=== PATIENT | female | born 1935 | race Hispanic/Latino ===

== ENCOUNTER 2018-05-19 19:18 | Emergency (ER) | payer OTHER ==
[~2018-05-19 19:18] MED LIST: ACET1TAB25 PO; AMLO5TAB2 PO; ATOR10 PO; CINA30 PO; HUMLIS7525 SQ; INSU10VI4 SQ; NITR0.4T SL; PHOSLOC PO; SEVE800T7 PO; VITA1TAB22 PO
[2018-05-19 19:56] LABS: BASOPHILS % (AUTO) 1.1 % (0.0-5.0); EOSINOPHILS % (AUTO) 1.4 % (0.0-8.0); HEMATOCRIT 37.3 % (36-48); LYMPHOCYTES % (AUTO) 14.6 % (21.0-51.0); MEAN CORPUSCULAR HEMOGLOBIN 32.5 pg (27.0-33.0); MEAN CORPUSCULAR HGB CONC 34.8 g/dL (32.0-36.0); MEAN CORPUSCULAR VOLUME 93.5 fL (79-99); MONOCYTES % (AUTO) 5.9 % (3.0-13.0); PLATELET COUNT (AUTO) 282 K/uL (130-400); RED BLOOD CELL COUNT(AUTO) 3.99 MIL/uL (4.00-5.50); RED CELL DISTRIBUTION WIDTH 15.4 % (11.0-15.5); WHITE BLOOD COUNT (AUTO) 9.8 K/uL (4.8-10.8)
[2018-05-19] MEDS ORDERED: ACETAMINOPHEN ELIXIR 650 MG/20.3 ML UDCUP ONE (20:13)
[2018-05-19 20:56] LABS: ALBUMIN 3.5 g/dL (3.5-5.0); BILIRUBIN,TOTAL 0.4 mg/dL (0.2-1.0); POTASSIUM 4.3 mmol/L (3.5-5.1); TOTAL PROTEIN, SERUM 7.1 g/dL (6.0-8.3)
[2018-05-19 21:21] LABS: CREATININE 8.2 mg/dL (0.5-1.5)
[2018-05-19 22:25] LABS: APPEARANCE,URINE Cloudy (CLEAR); BILIRUBIN,URINE Negative (NEGATIVE); COLOR,URINE Yellow (YELLOW); GLUCOSE, URINE (UA) 500 mg/dL (NEGATIVE); KETONES,URINE Negative (NEGATIVE); LEUKOCYTE ESTERASE ,URINE Large (NEGATIVE); NITRATE,URINE Negative (NEGATIVE); OCCULT BLOOD,URINE Small (NEGATIVE); PH,URINE >=9.0 (5.0-8.0); PROTEIN,URINE 300 (NEGATIVE); UROBILINOGEN,URINE 0.2 mg/dL (0.2-1.0)
[2018-05-19 22:54] LABS: BACTERIA,URINE Moderate /HPF (None Seen); WBC,URINE 26-50 /HPF (0-1)
[2018-05-19 22:55] LABS: MUCUS,URINE Moderate LPF (None Seen); SQUAMOUS EPITHELIAL CELL,UR Moderate /HPF (0-2)
[2018-05-31] MEDS ORDERED: SENN-77 PO (09:04)
[2018-05-31] MEDS ORDERED: OMEP40CA37 PO (09:04)
== END 2018-05-19 23:05 | disposition home or self-care (01) ==
LOC: EDH 19:18
DX: S32.602A Unspecified fracture of left ischium, initial encounter for closed fracture (principal); S40.012A Contusion of left shoulder, initial encounter; S50.02XA Contusion of left elbow, initial encounter; S09.90XA Unspecified injury of head, initial encounter; I12.0 Hypertensive chronic kidney disease with stage 5 chronic kidney disease or end stage renal disease; E11.22 Type 2 diabetes mellitus with diabetic chronic kidney disease; N18.6 End stage renal disease; E78.5 Hyperlipidemia, unspecified; E07.9 Disorder of thyroid, unspecified; Z98.51 Tubal ligation status; Z98.890 Other specified postprocedural states; Z99.2 Dependence on renal dialysis; Z88.8 Allergy status to other drugs, medicaments and biological substances; W01.190A Fall on same level from slipping, tripping and stumbling with subsequent striking against furniture, initial encounter; Y93.89 Activity, other specified; Y92.89 Other specified places as the place of occurrence of the external cause; Y99.8 Other external cause status
CPT/HCPCS: 36415; 70450; 72125; 73030; 73080; 73502; 80053; 81001; 85025

== ENCOUNTER → 2018-09-11 | Outpatient (CLI) | payer OTHER ==
[~2018-09-11] MED LIST changes: -ACET1TAB25 PO; +ALEN70TA47 PO; -AMLO5TAB2 PO; +AMLO5TAB4 PO; -HUMLIS7525 SQ; -INSU10VI4 SQ; +OMEP40CA37 PO; -PHOSLOC PO; -SEVE800T7 PO
== END | disposition home or self-care (01) ==
LOC: SHCH 14:56
PROVIDERS: ATTEND Internal Medicine Cardiovascular Disease
DX: I51.7 Cardiomegaly (principal); R01.1 Cardiac murmur, unspecified
CPT/HCPCS: 93306

== ENCOUNTER 2019-12-11 18:15 | Emergency (ER) | payer OTHER ==
[~2019-12-11 18:15] MED LIST changes: +ALEN70TA10 PO; -ALEN70TA47 PO; +OMEP40CA13 PO; -OMEP40CA37 PO
[2019-12-11] MEDS ORDERED: ACETAMINOPHEN 325 MG TAB ONE (18:48)
== END 2019-12-11 21:25 | disposition home or self-care (01) ==
LOC: EDH 18:15
DX: S52.502A Unspecified fracture of the lower end of left radius, initial encounter for closed fracture (principal); E11.9 Type 2 diabetes mellitus without complications; K21.9 Gastro-esophageal reflux disease without esophagitis; E78.5 Hyperlipidemia, unspecified; I10 Essential (primary) hypertension; Z88.1 Allergy status to other antibiotic agents; Z88.6 Allergy status to analgesic agent; W18.39XA Other fall on same level, initial encounter; Y93.89 Activity, other specified; Y92.89 Other specified places as the place of occurrence of the external cause; Y99.8 Other external cause status
CPT/HCPCS: 29125; 70450; 72072; 72100; 73110

== ENCOUNTER 2020-06-16 07:45 | Inpatient (IN) | payer OTHER ==
[~2020-06-16] VITALS: Ht 154.9 cm; Wt 77.2 kg
[2020-06-16 08:37] LABS: BASOPHILS % (AUTO) 0.4 % (0.0-5.0); EOSINOPHILS % (AUTO) 0.1 % (0.0-8.0); HEMATOCRIT 29.6 % (36-48); LYMPHOCYTES % (AUTO) 6.3 % (21.0-51.0); MEAN CORPUSCULAR HEMOGLOBIN 32.7 pg (27.0-33.0); MEAN CORPUSCULAR HGB CONC 33.1 g/dL (32.0-36.0); MEAN CORPUSCULAR VOLUME 98.7 fL (79-99); MONOCYTES % (AUTO) 6.8 % (3.0-13.0); NEUTROPHILS % (AUTO) 86.1 % (40.0-77.0); PLATELET COUNT (AUTO) 224 K/uL (130-400); RED CELL DISTRIBUTION WIDTH 13.6 % (11.0-15.5); WHITE BLOOD COUNT (AUTO) 12.4 K/uL (4.8-10.8)
[2020-06-16] MEDS ORDERED: METHYLPREDNISOLONE SOD SUCC 40MG/ML 1ML ONE (08:48)
[2020-06-16] MEDS ORDERED: CEFTRIAXONE SODIUM 2 GM VIAL ONE (08:48)
[2020-06-16] MEDS ORDERED: ONDANSETRON HCL 4 MG/2 ML VIAL ONE (08:48)
[2020-06-16 09:01] LABS: ALANINE AMINOTRANSFERASE 18 U/L (12-78); ALBUMIN 4.3 g/dL (3.5-5.0); ASPARTATE AMINOTRANSFERASE 28 U/L (10-37); BILIRUBIN,TOTAL 0.7 mg/dL (0.2-1.0); CARBON DIOXIDE 26 mmol/L (21-32); CHLORIDE 91 mmol/L (101-111); CREATINE KINASE, TOTAL 131 U/L (21-232); CREATININE 6.4 mg/dL (0.5-1.5); GLOMERULAR FILTR. RATE CALC 7 mL/min (>60); GLUCOSE,RANDOM 138 mg/dL (70-105); MYOGLOBIN 345 ng/mL (10-92); SODIUM SERUM 127 mmol/L (136-145); TOTAL PROTEIN, SERUM 7.7 g/dL (6.0-8.3); TROPONIN I < 0.04 ng/mL (0.00-0.06); UREA NITROGEN, BLOOD 44 mg/dL (7-18)
[2020-06-16 09:36] LABS: INR 0.95 (0.85-1.15); PARTIAL THROMBOPLASTIN TIME 30.8 SEC (26.3-35.5); PROTHROMBIN TIME 10.3 SEC (9.6-11.6)
[2020-06-16] MEDS ORDERED: CALCIUM GLUCONATE 1 GM/10 ML VIAL IV ONE (10:40)
[2020-06-16] MEDS ORDERED: SODIUM BICARB 50MEQ 50ML VIAL ONE (10:41)
[2020-06-16] MEDS ORDERED: SODIUM CHLORIDE 0.9% 100 ML IV ONE (10:42)
[2020-06-16] MEDS ORDERED: LOPERAMIDE 1 MG/7.5 ML UDCUP PO PRN (12:45)
[2020-06-16] MEDS ORDERED: LACTULOSE 20 GM/30 ML UDCUP PO PRN (12:45)
[2020-06-16] MEDS ORDERED: HYDRALAZINE HCL 20 MG/ML VIAL IV PRN (12:45)
[2020-06-16] MEDS ORDERED: ONDANSETRON HCL 4 MG/2 ML VIAL IVP PRN (12:45)
[2020-06-16] MEDS ORDERED: AZITHROMYCIN 500MG+NS 250ML 250 ML IV SCH (12:45)
[2020-06-16 14:18] LABS: ABG BASE EXCESS -2.1 mmol/L (-2.0-3.0); ABG HCO3 22.9 mmol/L (21.0-28.0); ABG OXYGEN SATURATION 98.8 % (95.0-99.0); ABG PCO2 40 mmHg (32-45)
[2020-06-16 18:45] VITALS: BP 114/86
--- NOTE | 2020-06-16 19:40 | NUR ---
I spoke to Rehan MATTHEW for the patient, informed her patient did not have any diet at this time. Orders received entered and noted.
[2020-06-16] MEDS ORDERED: ENOXAPARIN SODIUM 0.5 MG/KG EACH SQ SCH (21:00)
[2020-06-16] MEDS ORDERED: ENOXAPARIN SODIUM 40 MG/0.4 ML SYRINGE SQ SCH (21:00)
[2020-06-16] MEDS: HEPARIN SODIUM 5000UNIT/ML 1ML VIAL SQ SCH (21:12)
[2020-06-17 00:01] VITALS: BP 144/70
[2020-06-17] MEDS: HEPARIN SODIUM 5000UNIT/ML 1ML VIAL SQ SCH ×3 (02:30→20:54)
[2020-06-17] MEDS ORDERED: PHARMACY COMMUNICATION MISC SCH (03:00)
[2020-06-17 04:28] VITALS: BP 157/67
[2020-06-17] MEDS ORDERED: ISOS30TA6 PO (06:48)
[2020-06-17] MEDS ORDERED: ASPI-1005 PO (06:49)
[2020-06-17 06:55] LABS: BASOPHILS % (AUTO) 0.5 % (0.0-5.0); EOSINOPHILS % (AUTO) 0.1 % (0.0-8.0); HEMATOCRIT 27.8 % (36-48); LYMPHOCYTES % (AUTO) 10.1 % (21.0-51.0); MEAN CORPUSCULAR HEMOGLOBIN 32.2 pg (27.0-33.0); MEAN CORPUSCULAR HGB CONC 32.7 g/dL (32.0-36.0); MEAN CORPUSCULAR VOLUME 98.2 fL (79-99); MONOCYTES % (AUTO) 7.3 % (3.0-13.0); NEUTROPHILS % (AUTO) 81.5 % (40.0-77.0); PLATELET COUNT (AUTO) 251 K/uL (130-400); RED BLOOD CELL COUNT(AUTO) 2.83 MIL/uL (4.00-5.50); RED CELL DISTRIBUTION WIDTH 13.3 % (11.0-15.5); WHITE BLOOD COUNT (AUTO) 8.6 K/uL (4.8-10.8)
[2020-06-17] MEDS ORDERED: ACET1TAB12 PO (06:55)
[2020-06-17] MEDS ORDERED: INSLAN SQ (06:58)
[2020-06-17] MEDS ORDERED: NITROGLYCERIN 0.4 MG SL TAB SL PRN (07:30)
[2020-06-17 07:37] LABS: ALBUMIN 3.6 g/dL (3.5-5.0); BILIRUBIN,DIRECT 0.1 mg/dL (0.0-0.3); BILIRUBIN,TOTAL 0.4 mg/dL (0.2-1.0); CRP QUANTITATIVE 159.1 mg/L (0.00-9.0); MAGNESIUM 3.4 mg/dL (1.80-2.40); PHOSPHORUS 5.5 mg/dL (2.5-4.9); TOTAL PROTEIN, SERUM 7.4 g/dL (6.0-8.3)
[2020-06-17 07:42] LABS: CREATININE 8.2 mg/dL (0.5-1.5); POTASSIUM 6.1 mmol/L (3.5-5.1)
[2020-06-17 07:43] LABS: HEMOGLOBIN A1C 5.3 % (4.0-6.0)
[2020-06-17] MEDS: INSULIN GLARGINE 100 UNITS/ML 10 ML VIAL SQ SCH (08:00)
[2020-06-17 08:41] VITALS: BP 145/54
--- NOTE | 2020-06-17 08:55 | NUR ---
DR. KATERINE DAVISON MD PAGED REGARDING CONSULT. PATIENT ERSD ON HS TTS. PATIENT REPORTS THAT DR. GARCIAS IS HER LINUX SERVER ADMINISTRATOR.
[2020-06-17] MEDS ORDERED: FAMOTIDINE 20MG TAB 20 MG TAB PO SCH (09:00)
[2020-06-17] MEDS: AMLODIPINE BESYLATE 5 MG TAB PO SCH (09:00)
[2020-06-17] MEDS: VITAMIN B COMPLEX 1 CAPSULE PO SCH (09:00)
[2020-06-17] MEDS: ASPIRIN 81MG TAB.CHEW PO SCH (09:00)
[2020-06-17] MEDS: DEXAMETHASONE SOD PHOSPHATE 4 MG/ML 1ML VIAL IVP SCH (09:00)
[2020-06-17] MEDS: FAMOTIDINE 20MG TAB 20 MG TAB PO SCH (09:00)
[2020-06-17] MEDS: ATORVASTATIN CALCIUM 20 MG TABLET PO SCH (09:00)
[2020-06-17 09:33] LABS: APPEARANCE,URINE Cloudy (CLEAR); BILIRUBIN,URINE Negative (NEGATIVE); COLOR,URINE Yellow (YELLOW); GLUCOSE, URINE (UA) TRACE mg/dL (NEGATIVE); KETONES,URINE Negative (NEGATIVE); LEUKOCYTE ESTERASE ,URINE Negative (NEGATIVE); NITRATE,URINE Negative (NEGATIVE); OCCULT BLOOD,URINE Trace (NEGATIVE); PH,URINE 6.5 (5.0-8.0); PROTEIN,URINE >=1000 mg/dL (NEGATIVE); UROBILINOGEN,URINE 0.2 mg/dL (0.2-1.0)
[2020-06-17 09:59] LABS: BACTERIA,URINE Rare /HPF (None Seen); RBC,URINE 0-1 /HPF (0-1); SQUAMOUS EPITHELIAL CELL,UR Moderate /HPF (0-2); WBC,URINE 0-1 /HPF (0-1)
--- NOTE | 2020-06-17 10:03 | NUR ---
RD NOTIFICATION Pt admitted, PUI COVID-19. Pt with Renal Dialysis, 75gm CC diet order in place. RD called Pt room. Pt reports having good appetite, however pending breakfast tray. Pt services en route of tray delivery. No GI distress. Obesity Class I. Octogenarian. Serum K 6.1, BUN 70, Cr 8.2, GFR 5, BG 147, P 5.5, Mg 3.40. RLE +2 non-pitting edema as per EMR. Recommend continue Renal Dialysis, 75gm CC diet order. RD to continue to monitor. Please notify as additional nutrition concerns arise. Thank you.
--- NOTE | 2020-06-17 10:42 | NUR ---
CHART CHECK COMPLETED. Pt IS AN 84 Y.O. FEMALE ADMITTED SECONDARY TO PUI COVID 19. Pt HAS A PAST MEDICAL HISTORY SIGNIFICANT FOR ESRD-HD, DMII, HYPERKALEMIA, HYPERTENSION, HYPERLIPIDEMIA, PROTEIN CALORIE-MALNUTRITION, OBESITY, KNEE SX, ANKLE SX, HIP SX, SINGLE KIDNEY, RAVA. Pt CURRENTLY ON REGULAR TEXTURE,THIN LIQUID DIET ([facility],HC[facility]). PLEASE REQUEST FORMAL SKILLED SPEECH/SWALLOW EVALUATION IF Pt PRESENTS WITH +S/S OF ASPIRATION SUCH COUGH RESPONSE, THROAT CLEAR, OR WET VOCAL QUALITY DURING P.O. Addendum: 06/17/20 at 1045 by RICKIE BALLARD, [facility] Amended: Links added.
[2020-06-17 11:23] VITALS: BP 146/55
[2020-06-17] MEDS ORDERED: EPOETIN ALFA 10,000 UNIT/ML VIAL SQ SCH (14:15)
[2020-06-17 17:03] VITALS: BP 154/43
[2020-06-17] MEDS ORDERED: DEXTROSE 50%-WATER 50 ML DISP.SYRIN IV PRN (17:30)
[2020-06-17] MEDS ORDERED: GLUCAGON 1MG KIT 1 MG ML IM PRN (17:30)
[2020-06-17 20:00] VITALS: BP 141/55
[2020-06-17] MEDS: AZITHROMYCIN 500MG+NS 250ML 250 ML IV SCH (20:33)
[2020-06-17] MEDS: INSULIN HUMULIN R 100 UNIT/ML 3ML SQ SCH (20:59)
[2020-06-18] VITALS (7 sets, daily range): BP systolic 135–165; BP diastolic 49–73
[2020-06-18 06:21] LABS: BASOPHILS % (AUTO) 0.3 % (0.0-5.0); EOSINOPHILS % (AUTO) 0.1 % (0.0-8.0); HEMATOCRIT 28.3 % (36-48); MEAN CORPUSCULAR HEMOGLOBIN 32.1 pg (27.0-33.0); MEAN CORPUSCULAR HGB CONC 32.9 g/dL (32.0-36.0); MEAN CORPUSCULAR VOLUME 97.6 fL (79-99); MONOCYTES % (AUTO) 8.6 % (3.0-13.0); NEUTROPHILS % (AUTO) 80.5 % (40.0-77.0); PLATELET COUNT (AUTO) 276 K/uL (130-400); RED CELL DISTRIBUTION WIDTH 13.2 % (11.0-15.5); WHITE BLOOD COUNT (AUTO) 7.9 K/uL (4.8-10.8)
[2020-06-18] MEDS: INSULIN HUMULIN R 100 UNIT/ML 3ML SQ SCH ×4 (06:35→21:00)
[2020-06-18 06:58] LABS: CREATININE 5.7 mg/dL (0.5-1.5); POTASSIUM 4.9 mmol/L (3.5-5.1)
[2020-06-18] MEDS: INSULIN GLARGINE 100 UNITS/ML 10 ML VIAL SQ SCH (08:31)
[2020-06-18] MEDS: AMLODIPINE BESYLATE 5 MG TAB PO SCH ×2 (09:00→09:03)
[2020-06-18] MEDS: HEPARIN SODIUM 5000UNIT/ML 1ML VIAL SQ SCH ×2 (09:01→21:43)
[2020-06-18] MEDS: DEXAMETHASONE SOD PHOSPHATE 4 MG/ML 1ML VIAL IVP SCH (09:01)
[2020-06-18] MEDS: VITAMIN B COMPLEX 1 CAPSULE PO SCH (09:02)
[2020-06-18] MEDS: ASPIRIN 81MG TAB.CHEW PO SCH (09:02)
[2020-06-18] MEDS: ATORVASTATIN CALCIUM 20 MG TABLET PO SCH (09:02)
[2020-06-18] MEDS: FAMOTIDINE 20MG TAB 20 MG TAB PO SCH (09:02)
--- NOTE | 2020-06-18 15:57 | NUR ---
INITIAL SW spoke with patient's daughter and MPOA, Ramya Flanagan, [phone]. Patient lives with spouse. He is presently also hospitalized at this hospital at this time. Patient has no home services. She has dialysis on TTS at [facility] at 5am. Family transports. DME: rollator, shower chair, BPM, glucometer (uses insulin), nebulizer. Patient needs help with ADL's and does not drive. PCP is Dr. Patrice Ellison. [facility] [address] in [place]. DCP is home. Addendum: 06/18/20 at 1600 by JOANN THOMAS SS Amended: Links added.
[2020-06-18] MEDS: AZITHROMYCIN 500MG+NS 250ML 250 ML IV SCH (21:42)
[2020-06-19 03:42] VITALS: BP 149/50
[2020-06-19 06:16] LABS: MEAN CORPUSCULAR HEMOGLOBIN 31.4 pg (27.0-33.0); MEAN CORPUSCULAR HGB CONC 32.4 g/dL (32.0-36.0); RED BLOOD CELL COUNT(AUTO) 2.99 MIL/uL (4.00-5.50); WHITE BLOOD COUNT (AUTO) 7.9 K/uL (4.8-10.8)
[2020-06-19 06:35] LABS: ALBUMIN 3.3 g/dL (3.5-5.0); BILIRUBIN,TOTAL 0.5 mg/dL (0.2-1.0); CREATININE 4.3 mg/dL (0.5-1.5); POTASSIUM 3.8 mmol/L (3.5-5.1); TOTAL PROTEIN, SERUM 6.9 g/dL (6.0-8.3)
[2020-06-19] MEDS: INSULIN HUMULIN R 100 UNIT/ML 3ML SQ SCH ×4 (06:38→21:31)
[2020-06-19 07:20] VITALS: BP 182/58
[2020-06-19] MEDS: INSULIN GLARGINE 100 UNITS/ML 10 ML VIAL SQ SCH (07:31)
[2020-06-19] MEDS: ATORVASTATIN CALCIUM 20 MG TABLET PO SCH (08:03)
[2020-06-19] MEDS: FAMOTIDINE 20MG TAB 20 MG TAB PO SCH (08:03)
[2020-06-19] MEDS: AMLODIPINE BESYLATE 5 MG TAB PO SCH (08:04)
[2020-06-19] MEDS: ASPIRIN 81MG TAB.CHEW PO SCH (08:04)
[2020-06-19] MEDS: DEXAMETHASONE SOD PHOSPHATE 4 MG/ML 1ML VIAL IVP SCH (08:05)
[2020-06-19] MEDS: HEPARIN SODIUM 5000UNIT/ML 1ML VIAL SQ SCH ×2 (08:06→21:30)
[2020-06-19] MEDS: VITAMIN B COMPLEX 1 CAPSULE PO SCH (08:14)
[2020-06-19 11:57] VITALS: BP 145/48
[2020-06-19 17:30] VITALS: BP 170/69
[2020-06-19 20:24] VITALS: BP 153/43
--- NOTE | 2020-06-19 20:40 | NUR ---
REPORT REPORT RECEIVED FROM LEXY EDEN. PT RESTING IN BED, NO DISTRESS NOTED SEEN ON VIDEO CAM.
[2020-06-19] MEDS: AZITHROMYCIN 500MG+NS 250ML 250 ML IV SCH (21:29)
--- NOTE | 2020-06-19 21:31 | NUR ---
MEDS SHIFT ASSESSMENT DONE, PLEASE REFER TO CHART. DUE MEDS ADMINISTERED, TOLERATED WELL. KEPT RESTED IN BED. CALL LIGHT WITHIN REACH. WILL MONITOR PT. Addendum: 06/20/20 at 0318 by AMANDA HOGUE RN RN Amended: Links added.
[2020-06-19 23:22] VITALS: BP 173/59
--- NOTE | 2020-06-20 02:00 | NUR ---
ROUNDS PT RESTING WELL, FAIRLY ASLEEP. NO DISTRESS NOTED. KEPT RESTED AND COMFORTABLE IN BED. CALL LIGHT WITHIN REACH.
[2020-06-20 03:31] VITALS: BP 160/51
--- NOTE | 2020-06-20 06:00 | NUR ---
ROUNDS PT RESTING WELL, FAIRLY ASLEEP. NO DISTRESS NOTED. KEPT UNDISTURBED FOR NOW. FOR MORE CARE.
[2020-06-20] MEDS: INSULIN HUMULIN R 100 UNIT/ML 3ML SQ SCH ×4 (06:23→21:05)
[2020-06-20 08:00] VITALS: BP 167/73
[2020-06-20] MEDS: DEXAMETHASONE SOD PHOSPHATE 4 MG/ML 1ML VIAL IVP SCH (10:02)
[2020-06-20] MEDS: ASPIRIN 81MG TAB.CHEW PO SCH (10:02)
[2020-06-20] MEDS: FAMOTIDINE 20MG TAB 20 MG TAB PO SCH (10:02)
[2020-06-20] MEDS: AMLODIPINE BESYLATE 5 MG TAB PO SCH (10:02)
[2020-06-20] MEDS: ATORVASTATIN CALCIUM 20 MG TABLET PO SCH (10:03)
[2020-06-20] MEDS: VITAMIN B COMPLEX 1 CAPSULE PO SCH (10:03)
[2020-06-20] MEDS: HEPARIN SODIUM 5000UNIT/ML 1ML VIAL SQ SCH ×2 (10:12→20:03)
[2020-06-20] MEDS: INSULIN GLARGINE 100 UNITS/ML 10 ML VIAL SQ SCH (10:13)
[2020-06-20 11:00] VITALS: BP 149/59
[2020-06-20 15:12] LABS: HEPATITIS Bs ANTIGEN SCREEN P Negative (Negative)
--- NOTE | 2020-06-20 15:20 | NUR ---
NUCLEAR REACTOR ENGINEER Jerry aware of culture and current antibiotics states will enter orders.
[2020-06-20 16:00] VITALS: BP 142/56
[2020-06-20] MEDS ORDERED: AMOXICILLIN/POTASSIUM CLAV 875-125 TABLET PO SCH (16:45)
[2020-06-20] MEDS: AMOXICILLIN/POTASSIUM CLAV 500-125 TABLET PO SCH (18:19)
[2020-06-20] MEDS: DOXYCYCLINE HYCLATE 100 MG TABLET PO SCH (20:01)
[2020-06-20 20:08] VITALS: BP 148/61
[2020-06-20] MEDS ORDERED: DOXYCYCLINE HYCLATE 100 MG TABLET PO SCH (21:00)
[2020-06-21 00:08] VITALS: BP 160/64
[2020-06-21 04:08] VITALS: BP 129/51
[2020-06-21] MEDS: INSULIN HUMULIN R 100 UNIT/ML 3ML SQ SCH ×4 (05:35→21:28)
[2020-06-21] MEDS: AMOXICILLIN/POTASSIUM CLAV 500-125 TABLET PO SCH ×2 (05:51→18:22)
[2020-06-21 07:45] VITALS: BP_SYST 145; BP_SYST 147; BP_DIAS 101; BP_DIAS 66
[2020-06-21] MEDS: INSULIN GLARGINE 100 UNITS/ML 10 ML VIAL SQ SCH (08:00)
[2020-06-21] MEDS: FAMOTIDINE 20MG TAB 20 MG TAB PO SCH (08:23)
[2020-06-21] MEDS: VITAMIN B COMPLEX 1 CAPSULE PO SCH (08:23)
[2020-06-21] MEDS: ATORVASTATIN CALCIUM 20 MG TABLET PO SCH (08:23)
[2020-06-21] MEDS: DOXYCYCLINE HYCLATE 100 MG TABLET PO SCH ×2 (08:23→19:53)
[2020-06-21] MEDS: AMLODIPINE BESYLATE 5 MG TAB PO SCH (08:23)
[2020-06-21] MEDS: DEXAMETHASONE SOD PHOSPHATE 4 MG/ML 1ML VIAL IVP SCH (08:24)
[2020-06-21] MEDS: ASPIRIN 81MG TAB.CHEW PO SCH (08:24)
[2020-06-21] MEDS: HEPARIN SODIUM 5000UNIT/ML 1ML VIAL SQ SCH ×2 (08:34→19:54)
[2020-06-21 11:00] VITALS: BP 155/51
--- NOTE | 2020-06-21 11:00 | NUR ---
HD PT STARTED HD
--- NOTE | 2020-06-21 14:00 | NUR ---
HD PT TRISHA HD WELL NO COMPLICATION, 2 LITERS REMOVED FOR 3 HRS.
[2020-06-21 16:00] VITALS: BP 139/57
[2020-06-21 20:08] VITALS: BP 171/53
[2020-06-22] VITALS (7 sets, daily range): BP systolic 151–193; BP diastolic 48–72
[2020-06-22] MEDS: INSULIN HUMULIN R 100 UNIT/ML 3ML SQ SCH ×4 (05:28→20:34)
[2020-06-22] MEDS: AMOXICILLIN/POTASSIUM CLAV 500-125 TABLET PO SCH ×2 (06:20→16:35)
[2020-06-22] MEDS: DOXYCYCLINE HYCLATE 100 MG TABLET PO SCH ×2 (08:41→20:33)
[2020-06-22] MEDS: AMLODIPINE BESYLATE 5 MG TAB PO SCH (08:41)
[2020-06-22] MEDS: FAMOTIDINE 20MG TAB 20 MG TAB PO SCH (08:41)
[2020-06-22] MEDS: VITAMIN B COMPLEX 1 CAPSULE PO SCH (08:41)
[2020-06-22] MEDS: ASPIRIN 81MG TAB.CHEW PO SCH (08:41)
[2020-06-22] MEDS: ATORVASTATIN CALCIUM 20 MG TABLET PO SCH (08:41)
[2020-06-22] MEDS: HEPARIN SODIUM 5000UNIT/ML 1ML VIAL SQ SCH ×2 (08:43→20:35)
[2020-06-22] MEDS: DEXAMETHASONE SOD PHOSPHATE 4 MG/ML 1ML VIAL IVP SCH (09:08)
[2020-06-22] MEDS: INSULIN GLARGINE 100 UNITS/ML 10 ML VIAL SQ SCH (09:12)
[2020-06-22] MEDS ORDERED: ALBUTEROL INHALER 90MCG/INH IH PRN (11:00)
[2020-06-22] MEDS ORDERED: BENZONATATE 100 MG CAPSULE PO PRN (11:00)
--- NOTE | 2020-06-22 17:08 | NUR ---
PT COVID NEGATIVE, TRANSFER ORDER IN TO [facility] AND [facility] IS AWARE.
--- NOTE | 2020-06-22 21:41 | NUR ---
TRANSFER ROOM PATIENT RECEIVED A ROOM ON THIRD FLOOR ROOM 326. REPORT GIVEN TO SHARRON PUGH AND PATIENT TRANSFERED TO ROOM 326.
[2020-06-23 04:27] VITALS: BP 150/64
[2020-06-23] MEDS: AMOXICILLIN/POTASSIUM CLAV 500-125 TABLET PO SCH ×2 (04:30→18:11)
[2020-06-23] MEDS: INSULIN HUMULIN R 100 UNIT/ML 3ML SQ SCH ×4 (06:18→21:17)
[2020-06-23 07:04] LABS: CREATININE 6.8 mg/dL (0.5-1.5); POTASSIUM 4.7 mmol/L (3.5-5.1)
[2020-06-23 08:00] VITALS: BP 94/63
[2020-06-23] MEDS: ATORVASTATIN CALCIUM 20 MG TABLET PO SCH (09:00)
[2020-06-23] MEDS: AMLODIPINE BESYLATE 5 MG TAB PO SCH (09:00)
[2020-06-23] MEDS: HEPARIN SODIUM 5000UNIT/ML 1ML VIAL SQ SCH ×2 (09:38→21:16)
[2020-06-23] MEDS: INSULIN GLARGINE 100 UNITS/ML 10 ML VIAL SQ SCH (09:41)
[2020-06-23] MEDS: FAMOTIDINE 20MG TAB 20 MG TAB PO SCH (10:33)
[2020-06-23] MEDS: DEXAMETHASONE SOD PHOSPHATE 4 MG/ML 1ML VIAL IVP SCH (10:33)
[2020-06-23] MEDS: DOXYCYCLINE HYCLATE 100 MG TABLET PO SCH ×2 (10:34→21:15)
[2020-06-23] MEDS: ASPIRIN 81MG TAB.CHEW PO SCH (10:34)
[2020-06-23] MEDS: VITAMIN B COMPLEX 1 CAPSULE PO SCH (10:34)
[2020-06-23 11:00] VITALS: BP 162/72
[2020-06-23] MEDS ORDERED: MIDODRINE HCL 5 MG TABLET ONE (11:35)
[2020-06-23] MEDS ORDERED: MIDODRINE HCL 5 MG TABLET PO SCH (11:45)
[2020-06-23] MEDS: MIDODRINE HCL 5 MG TABLET PO SCH ×2 (12:04→21:15)
[2020-06-23 16:00] VITALS: BP 148/60
[2020-06-23 16:52] LABS: CREATININE 3.5 mg/dL (0.5-1.5)
[2020-06-23 19:44] VITALS: BP 138/47
[2020-06-23 23:56] VITALS: BP 138/60
[2020-06-24 04:00] VITALS: BP 167/67
[2020-06-24] MEDS: AMOXICILLIN/POTASSIUM CLAV 500-125 TABLET PO SCH (06:33)
[2020-06-24] MEDS: INSULIN HUMULIN R 100 UNIT/ML 3ML SQ SCH ×2 (06:38→11:30)
[2020-06-24 07:35] VITALS: BP 180/67
[2020-06-24 07:35] LABS: CREATININE 4.8 mg/dL (0.5-1.5)
[2020-06-24] MEDS: MIDODRINE HCL 5 MG TABLET PO SCH ×2 (09:00→13:12)
[2020-06-24] MEDS: AMLODIPINE BESYLATE 5 MG TAB PO SCH (09:03)
[2020-06-24] MEDS: ASPIRIN 81MG TAB.CHEW PO SCH (09:03)
[2020-06-24] MEDS: FAMOTIDINE 20MG TAB 20 MG TAB PO SCH (09:03)
[2020-06-24] MEDS: DOXYCYCLINE HYCLATE 100 MG TABLET PO SCH (09:04)
[2020-06-24] MEDS: ATORVASTATIN CALCIUM 20 MG TABLET PO SCH (09:04)
[2020-06-24] MEDS: VITAMIN B COMPLEX 1 CAPSULE PO SCH (09:04)
[2020-06-24] MEDS: DEXAMETHASONE SOD PHOSPHATE 4 MG/ML 1ML VIAL IVP SCH (09:04)
[2020-06-24] MEDS: HEPARIN SODIUM 5000UNIT/ML 1ML VIAL SQ SCH (09:12)
[2020-06-24] MEDS: INSULIN GLARGINE 100 UNITS/ML 10 ML VIAL SQ SCH (09:12)
[2020-06-24 10:50] VITALS: BP 176/68
[2020-06-24] MEDS ORDERED: DOXY100T2 PO (11:25)
[2020-06-24] MEDS ORDERED: AMOX1TAB15 PO (11:25)
== END 2020-06-24 15:30 | disposition home or self-care (01) | DRG 689 ==
LOC: EDH 07:45 → EDHIP 11:48 → 3AH 18:38 → 3DH 06-22 21:54
PROVIDERS: ADMIT Internal Medicine Critical Care Medicine; ATTEND Internal Medicine Critical Care Medicine
PROC: 5A1D70Z Performance of Urinary Filtration, Intermittent, Less than 6 Hours Per Day (ICD-10-PCS; 2020-06-17)
PROC: 5A1D70Z Performance of Urinary Filtration, Intermittent, Less than 6 Hours Per Day (ICD-10-PCS; 2020-06-18)
PROC: 5A1D70Z Performance of Urinary Filtration, Intermittent, Less than 6 Hours Per Day (ICD-10-PCS; 2020-06-21)
PROC: 5A1D70Z Performance of Urinary Filtration, Intermittent, Less than 6 Hours Per Day (ICD-10-PCS; principal; 2020-06-23)
DX: N39.0 Urinary tract infection, site not specified (principal); N18.6 End stage renal disease; I12.0 Hypertensive chronic kidney disease with stage 5 chronic kidney disease or end stage renal disease; E87.1 Hypo-osmolality and hyponatremia; E44.0 Moderate protein-calorie malnutrition; Z99.2 Dependence on renal dialysis; E11.22 Type 2 diabetes mellitus with diabetic chronic kidney disease; E87.5 Hyperkalemia; E78.5 Hyperlipidemia, unspecified; E66.9 Obesity, unspecified; Z20.828 Contact with and (suspected) exposure to other viral communicable diseases; Z79.4 Long term (current) use of insulin; Z88.6 Allergy status to analgesic agent; Z88.8 Allergy status to other drugs, medicaments and biological substances; Z68.32 Body mass index [BMI] 32.0-32.9, adult
CPT/HCPCS: 36415; 36600; 71045; 71250; 80048; 80053; 80076; 81001; 82550; 82728; 82803; 82948; 83036; 83605; 83735; 83874; 84100; 84145; 84484; 85025; 85027; 85378; 85610; 85730; 86140; 86704; 86706; 86900; 86901; 87040; 87077; 87088; 87186; 87340; 87426; 87520; 90935; 93005; 99291; G0378; J0360; J0456; J0610; J0696; J0885; J1100; J1644; J1815; J2405; J2920; J3490; U0003

== ENCOUNTER → 2020-07-15 | Outpatient (CLI) | payer OTHER ==
[~2020-07-15] MED LIST changes: +ACET1TAB12 PO; +AMOX1TAB15 PO; +ASPI-1005 PO; +DOXY100T2 PO; +INSLAN SQ; +ISOS30TA6 PO
== END | disposition home or self-care (01) ==
LOC: RAH 08:49
PROVIDERS: ATTEND Internal Medicine Gastroenterology
DX: I70.0 Atherosclerosis of aorta (principal); J90 Pleural effusion, not elsewhere classified; R10.13 Epigastric pain; K80.20 Calculus of gallbladder without cholecystitis without obstruction
CPT/HCPCS: 76700

== ENCOUNTER 2020-11-01 16:28 | Observation (INO) | payer OTHER ==
[~2020-11-01] VITALS: Ht 152.4 cm; Wt 69.4 kg
[~2020-11-01 16:28] MED LIST changes: -ACET1TAB12 PO; +ACET1TAB25 PO; +ALBU8.5H8 IH; -ALEN70TA10 PO; +ALEN70TA80 PO; +AMLO-258 PO; -AMLO5TAB4 PO; -AMOX1TAB15 PO; -ASPI-1005 PO; +ASPI-1197 PO; -ATOR10 PO; +ATOR20TA65 PO; -CINA30 PO; +CINA30TA5 PO; +DICY20TA11 PO; -DOXY100T2 PO; +FERR325T22 PO; +GUAI400T93 PO; +IPRA42SP NS; -NITR0.4T SL; +NITR0.4T50 SL; +ONDA4TAB10 PO; +SEVE2.4P PO; +VITA1CAP17 PO; -VITA1TAB22 PO
[2020-11-01 17:19] LABS: BASOPHILS % (AUTO) 0.3 % (0.0-5.0); EOSINOPHILS % (AUTO) 0.3 % (0.0-8.0); HEMATOCRIT 39.4 % (36-48); LYMPHOCYTES % (AUTO) 10.2 % (21.0-51.0); MEAN CORPUSCULAR HEMOGLOBIN 28.9 pg (27.0-33.0); MEAN CORPUSCULAR HGB CONC 32.2 g/dL (32.0-36.0); MEAN CORPUSCULAR VOLUME 89.5 fL (79-99); MONOCYTES % (AUTO) 5.6 % (3.0-13.0); NEUTROPHILS % (AUTO) 83.1 % (40.0-77.0); PLATELET COUNT (AUTO) 291 K/uL (130-400); RED CELL DISTRIBUTION WIDTH 15.5 % (11.0-15.5); WHITE BLOOD COUNT (AUTO) 7.9 K/uL (4.8-10.8)
[2020-11-01 17:38] LABS: INR 0.92 (0.85-1.15)
[2020-11-01 17:44] LABS: POTASSIUM 4.2 mmol/L (3.5-5.1)
[2020-11-01 17:55] LABS: ALBUMIN 3.4 g/dL (3.5-5.0); BILIRUBIN,TOTAL 0.7 mg/dL (0.2-1.0); TOTAL PROTEIN, SERUM 7.3 g/dL (6.0-8.3); TROPONIN I 0.08 ng/mL (0.00-0.06)
[2020-11-01] MEDS ORDERED: AZITHROMYCIN 500MG+NS 250ML 250 ML IV SCH (18:45)
[2020-11-01] MEDS ORDERED: DEXAMETHASONE SOD PHOSPHATE 4 MG/ML 1ML VIAL IVP SCH (18:45)
[2020-11-01] MEDS ORDERED: CEFTRIAXONE SODIUM 1 GM IVP SCH (18:45)
[2020-11-01] MEDS ORDERED: ERGOCALCIFEROL (VITAMIN D2) 50,000 UNIT CAPSULE PO ONE (18:45)
[2020-11-01] MEDS ORDERED: DiphenhydrAMINE HCL 50 MG/ML VIAL IV PRN (19:00)
[2020-11-01] MEDS ORDERED: MORPHINE SULFATE 2 MG/ML 1ML SYG IV PRN (19:00)
[2020-11-01] MEDS ORDERED: LACTULOSE 20 GM/30 ML UDCUP PO PRN (19:00)
[2020-11-01] MEDS ORDERED: ACETAMINOPHEN 325 MG TAB PO PRN (19:00)
[2020-11-01] MEDS ORDERED: ONDANSETRON HCL 4 MG/2 ML VIAL IV PRN (19:00)
[2020-11-01] MEDS ORDERED: CEFTRIAXONE SODIUM 1 GM ONE (19:21)
[2020-11-01] MEDS ORDERED: AZITHROMYCIN 250 MG TABLET PO ONE (19:21)
[2020-11-01] MEDS ORDERED: SODIUM CHLORIDE 0.9% 50 ML IV ONE (19:22)
[2020-11-01] MEDS ORDERED: ERGOCALCIFEROL (VITAMIN D2) 50,000 UNIT CAPSULE ONE (20:58)
[2020-11-01] MEDS ORDERED: DEXAMETHASONE SOD PHOSPHATE 4 MG/ML 1ML VIAL ONE (20:58)
[2020-11-01] MEDS ORDERED: INSULIN HUMULIN R 100 UNIT/ML 3ML SQ SCH (21:00)
[2020-11-02] MEDS ORDERED: SODIUM CHLORIDE 0.9% 250 ML IV ONE (03:05)
[2020-11-02 08:29] LABS: BASOPHILS % (AUTO) 0.2 % (0.0-5.0); HEMATOCRIT 39.2 % (36-48); LYMPHOCYTES % (AUTO) 14.7 % (21.0-51.0); MEAN CORPUSCULAR HEMOGLOBIN 28.7 pg (27.0-33.0); MEAN CORPUSCULAR HGB CONC 32.4 g/dL (32.0-36.0); MEAN CORPUSCULAR VOLUME 88.5 fL (79-99); MONOCYTES % (AUTO) 4.3 % (3.0-13.0); NEUTROPHILS % (AUTO) 80.1 % (40.0-77.0); PLATELET COUNT (AUTO) 291 K/uL (130-400); RED BLOOD CELL COUNT(AUTO) 4.43 MIL/uL (4.00-5.50); RED CELL DISTRIBUTION WIDTH 15.3 % (11.0-15.5); WHITE BLOOD COUNT (AUTO) 5.8 K/uL (4.8-10.8)
[2020-11-02 08:47] LABS: ALBUMIN 3.2 g/dL (3.5-5.0); BILIRUBIN,TOTAL 0.6 mg/dL (0.2-1.0); CRP QUANTITATIVE 30.4 mg/L (0.00-9.0); POTASSIUM 4.4 mmol/L (3.5-5.1)
[2020-11-02] MEDS ORDERED: FAMOTIDINE 20MG TAB 20 MG TAB ONE (08:51)
[2020-11-02] MEDS ORDERED: ASCORBIC ACID 500 MG TAB ONE (08:51)
[2020-11-02] MEDS ORDERED: ENOXAPARIN SODIUM 30 MG/0.3 ML SQ ONE (08:52)
[2020-11-02] MEDS ORDERED: ZINC SULFATE 220 CAPSULE ONE (08:52)
[2020-11-02] MEDS ORDERED: ENOXAPARIN SODIUM 30 MG/0.3 ML SQ SCH (09:00)
[2020-11-02] MEDS ORDERED: ASCORBIC ACID 500 MG TAB PO SCH (09:00)
[2020-11-02] MEDS ORDERED: FAMOTIDINE/PF 20 MG/2 ML VIAL IV SCH (09:00)
[2020-11-02] MEDS ORDERED: ZINC SULFATE 220 CAPSULE PO SCH (09:00)
[2020-11-02] MEDS ORDERED: IPRATROPIUM 0.5 MG/2.5 ML INH IH PRN (13:00)
[2020-11-02] MEDS ORDERED: ALENDRONATE SODIUM 35 MG TAB PO SCH (13:00)
[2020-11-02] MEDS ORDERED: NITROGLYCERIN 0.4 MG SL TAB SL PRN (13:00)
[2020-11-02] MEDS ORDERED: DICYCLOMINE HCL 20 MG TAB PO PRN (13:00)
[2020-11-02] MEDS ORDERED: AMLODIPINE BESYLATE 5 MG TAB PO SCH (14:04)
[2020-11-02] MEDS ORDERED: FERROUS SULFATE 325 MG TABLET.DR PO SCH (14:05)
[2020-11-02] MEDS ORDERED: AZIT250T9 PO (14:07)
[2020-11-02] MEDS ORDERED: METOLAZONE 2.5 MG TABLET ONE (14:56)
[2020-11-02] MEDS ORDERED: CINACALCET HCL 30 MG TAB PO SCH ×2 (16:45→17:00)
[2020-11-02] MEDS ORDERED: DEXAMETHASONE SOD PHOSPHATE 10MG/ML 1ML VIAL ONE (17:48)
[2020-11-02] MEDS ORDERED: AZITHROMYCIN 500MG+NS 250ML 250 ML IV ONE (17:48)
[2020-11-02] MEDS ORDERED: CEFTRIAXONE SODIUM 1 GM ONE (17:48)
[2020-11-02] MEDS ORDERED: INSULIN HUMULIN R 100 UNIT/ML 3ML ONE (18:18)
[2020-11-02] MEDS ORDERED: SEVELAMER HCL 800 MG TABLET ONE (20:20)
[2020-11-02] MEDS ORDERED: ATORVASTATIN CALCIUM 20 MG TABLET ONE (20:20)
[2020-11-02] MEDS ORDERED: ATORVASTATIN CALCIUM 20 MG TABLET PO SCH (21:00)
[2020-11-02] MEDS ORDERED: HEPARIN SODIUM 5000UNIT/ML 1ML VIAL SQ SCH (21:00)
[2020-11-02] MEDS ORDERED: SEVELAMER HCL 800 MG TABLET PO SCH (21:00)
[2020-11-02] MEDS ORDERED: ACETAMINOPHEN 325 MG TAB ONE (21:58)
[2020-11-02] MEDS ORDERED: HEPARIN SODIUM 5000UNIT/ML 1ML VIAL ONE (21:58)
[2020-11-03 04:16] LABS: ABG BASE EXCESS -0.2 mmol/L (-2.0-3.0); ABG HCO3 24.7 mmol/L (21.0-28.0); ABG OXYGEN SATURATION 94.4 % (95.0-99.0); ABG PCO2 41 mmHg (32-45)
[2020-11-03 07:02] LABS: BASOPHILS % (AUTO) 0.2 % (0.0-5.0); HEMATOCRIT 39.3 % (36-48); LYMPHOCYTES % (AUTO) 11.3 % (21.0-51.0); MEAN CORPUSCULAR HGB CONC 32.8 g/dL (32.0-36.0); MEAN CORPUSCULAR VOLUME 88.3 fL (79-99); MONOCYTES % (AUTO) 3.2 % (3.0-13.0); NEUTROPHILS % (AUTO) 84.1 % (40.0-77.0); PLATELET COUNT (AUTO) 324 K/uL (130-400); RED BLOOD CELL COUNT(AUTO) 4.45 MIL/uL (4.00-5.50); RED CELL DISTRIBUTION WIDTH 15.6 % (11.0-15.5); WHITE BLOOD COUNT (AUTO) 6.6 K/uL (4.8-10.8)
[2020-11-03 07:11] LABS: BILIRUBIN,TOTAL 0.6 mg/dL (0.2-1.0); CREATININE 6.5 mg/dL (0.5-1.5); MAGNESIUM 2.5 mg/dL (1.80-2.40); PHOSPHORUS 4.6 mg/dL (2.5-4.9); POTASSIUM 4.5 mmol/L (3.5-5.1); TOTAL PROTEIN, SERUM 6.7 g/dL (6.0-8.3)
[2020-11-03] MEDS ORDERED: FERROUS SULFATE 325 MG TABLET.DR ONE (08:27)
[2020-11-03] MEDS ORDERED: ASCORBIC ACID 500 MG TAB ONE (08:27)
[2020-11-03] MEDS ORDERED: HEPARIN SODIUM 5000UNIT/ML 1ML VIAL ONE (08:28)
[2020-11-03] MEDS ORDERED: ISOSORBIDE MONO 30MG TAB SR PO ONE (08:28)
[2020-11-03] MEDS ORDERED: THIAMINE HCL 100 MG TABLET ONE (08:28)
[2020-11-03] MEDS ORDERED: SEVELAMER HCL 800 MG TABLET ONE (08:28)
[2020-11-03] MEDS ORDERED: ZINC SULFATE 220 CAPSULE ONE (08:29)
[2020-11-03] MEDS ORDERED: ASPIRIN 81 MG EC TAB ONE (08:29)
[2020-11-03] MEDS ORDERED: AMLODIPINE BESYLATE 5 MG TAB ONE (08:29)
[2020-11-03] MEDS ORDERED: ISOSORBIDE MONO 30MG TAB SR PO SCH (09:00)
[2020-11-03] MEDS ORDERED: ASPIRIN 81MG TAB.CHEW PO SCH (09:00)
[2020-11-03] MEDS ORDERED: VITAMIN B COMPLEX 1 CAPSULE PO SCH (09:00)
[2020-11-03] MEDS ORDERED: INSULIN GLARGINE 100 UNITS/ML 10 ML VIAL SQ SCH (09:00)
[2020-11-04 07:16] LABS: HEPATITIS A ANTIBODY IGM Negative (Negative); HEPATITIS B CORE IGM Negative (Negative); HEPATITIS Bs ANTIGEN SCREEN P Negative (Negative)
== END 2020-11-03 10:17 | disposition home or self-care (01) ==
LOC: EDH 16:28 → INTOOBSV 18:51 → EDHIP 18:51
PROVIDERS: ADMIT Internal Medicine Critical Care Medicine; ATTEND Internal Medicine Critical Care Medicine
DX: U07.1 COVID-19 (principal); J12.89 Other viral pneumonia; J96.01 Acute respiratory failure with hypoxia; I12.0 Hypertensive chronic kidney disease with stage 5 chronic kidney disease or end stage renal disease; E11.22 Type 2 diabetes mellitus with diabetic chronic kidney disease; N18.6 End stage renal disease; D63.1 Anemia in chronic kidney disease; E03.9 Hypothyroidism, unspecified; E78.5 Hyperlipidemia, unspecified; R79.89 Other specified abnormal findings of blood chemistry; Z99.2 Dependence on renal dialysis; Z79.4 Long term (current) use of insulin; Z79.82 Long term (current) use of aspirin; Z79.899 Other long term (current) drug therapy; Z88.8 Allergy status to other drugs, medicaments and biological substances
CPT/HCPCS: 36415 ×3; 36430; 36600; 71045 ×2; 80053 ×3; 80074; 82550 ×2; 82728 ×2; 82803; 82948 ×4; 83605; 83615 ×2; 83735; 83874; 84100; 84145 ×3; 84484; 85025 ×3; 85378 ×3; 85610; 85730; 86140 ×3; 86900; 86901; 86927; 87040; 87426; 93005; 99285; G0378 ×20; J0456; J0696 ×2; J1100 ×2; J1644; J1650; J1815; J7050; P9017

== ENCOUNTER 2020-11-19 14:01 | Emergency (ER) | payer OTHER ==
[~2020-11-19 14:01] MED LIST changes: +AZIT250T9 PO; -DICY20TA11 PO; +DICY20TA3 PO; -GUAI400T93 PO; -ISOS30TA6 PO; +ISOS30TA92 PO; -OMEP40CA13 PO; +OMEP40CA21 PO; +[UNRECOGNIZED DRUG - CODE] PO
[2020-11-19 15:04] LABS: BASOPHILS % (AUTO) 0.6 % (0.0-5.0); EOSINOPHILS % (AUTO) 1.2 % (0.0-8.0); HEMATOCRIT 32.9 % (36-48); LYMPHOCYTES % (AUTO) 10.6 % (21.0-51.0); MEAN CORPUSCULAR HEMOGLOBIN 29.2 pg (27.0-33.0); MEAN CORPUSCULAR HGB CONC 32.5 g/dL (32.0-36.0); MEAN CORPUSCULAR VOLUME 89.9 fL (79-99); MONOCYTES % (AUTO) 5.9 % (3.0-13.0); NEUTROPHILS % (AUTO) 81.4 % (40.0-77.0); PLATELET COUNT (AUTO) 206 K/uL (130-400); RED BLOOD CELL COUNT(AUTO) 3.66 MIL/uL (4.00-5.50); RED CELL DISTRIBUTION WIDTH 16.3 % (11.0-15.5)
[2020-11-19 15:15] LABS: CREATININE 3.6 mg/dL (0.5-1.5); POTASSIUM 4.5 mmol/L (3.5-5.1)
[2020-11-19 15:20] LABS: ALBUMIN 3.8 g/dL (3.5-5.0); BILIRUBIN,TOTAL 0.6 mg/dL (0.2-1.0); TOTAL PROTEIN, SERUM 7.8 g/dL (6.0-8.3)
== END 2020-11-19 16:41 | disposition home or self-care (01) ==
LOC: EDH 14:01
DX: B34.9 Viral infection, unspecified (principal); Z20.828 Contact with and (suspected) exposure to other viral communicable diseases; I12.0 Hypertensive chronic kidney disease with stage 5 chronic kidney disease or end stage renal disease; E11.22 Type 2 diabetes mellitus with diabetic chronic kidney disease; N18.6 End stage renal disease; E78.5 Hyperlipidemia, unspecified; Z88.6 Allergy status to analgesic agent; Z88.5 Allergy status to narcotic agent; Z99.2 Dependence on renal dialysis
CPT/HCPCS: 36415; 71045; 80053; 82550; 84484; 85025; 87040 ×2; 87426; 99284; U0003

== ENCOUNTER 2020-12-27 15:05 | Inpatient (IN) | payer MEDICARE, OTHER ==
[~2020-12-27] VITALS: Ht 152.4 cm; Wt 68.4 kg
[2020-12-27 16:07] LABS: BASOPHILS % (AUTO) 0.8 % (0.0-5.0); EOSINOPHILS % (AUTO) 0.7 % (0.0-8.0); HEMATOCRIT 39.3 % (36-48); LYMPHOCYTES % (AUTO) 6.8 % (21.0-51.0); MEAN CORPUSCULAR HEMOGLOBIN 29.8 pg (27.0-33.0); MEAN CORPUSCULAR HGB CONC 33.1 g/dL (32.0-36.0); MEAN CORPUSCULAR VOLUME 90.1 fL (79-99); MONOCYTES % (AUTO) 3.1 % (3.0-13.0); NEUTROPHILS % (AUTO) 88.3 % (40.0-77.0); PLATELET COUNT (AUTO) 294 K/uL (130-400); RED BLOOD CELL COUNT(AUTO) 4.36 MIL/uL (4.00-5.50); RED CELL DISTRIBUTION WIDTH 16.3 % (11.0-15.5); WHITE BLOOD COUNT (AUTO) 11.4 K/uL (4.8-10.8)
[2020-12-27 16:23] LABS: INR 1.01 (0.85-1.15)
[2020-12-27 16:24] LABS: PARTIAL THROMBOPLASTIN TIME 27.2 SEC (26.3-35.5)
[2020-12-27 16:37] LABS: ALBUMIN 4.4 g/dL (3.5-5.0); BILIRUBIN,TOTAL 0.5 mg/dL (0.2-1.0); CREATININE 4.2 mg/dL (0.5-1.5); POTASSIUM 4.5 mmol/L (3.5-5.1); TOTAL PROTEIN, SERUM 8.6 g/dL (6.0-8.3)
[2020-12-27 16:59] LABS: B-TYPE NATRIURETIC PEPTIDE 366 pg/mL (0-100)
[2020-12-27] MEDS ORDERED: ONDANSETRON 4MG INJ ONE ×2 (17:18→22:55)
[2020-12-27] MEDS ORDERED: ACETAMINOPHEN 325 MG TAB ONE (17:19)
[2020-12-27] MEDS ORDERED: IOHEXOL-350 75 ML VIAL IV ONE (17:39)
[2020-12-27] MEDS ORDERED: ACETAMINOPHEN 325 MG TAB PO PRN ×2 (20:15)
[2020-12-27] MEDS ORDERED: ONDANSETRON 4MG INJ IV PRN (20:15)
[2020-12-27] MEDS ORDERED: DIPHENHYDRAMINE HCL 25 MG CAPSULE PO PRN (20:15)
[2020-12-27] MEDS ORDERED: NITROGLYCERIN 0.4 MG SL TAB SL PRN (20:15)
[2020-12-27] MEDS ORDERED: DiphenhydrAMINE HCL 50 MG/ML VIAL IV PRN (20:15)
[2020-12-27] MEDS ORDERED: MAG/ALUM/SIMETH 30 ML UDCUP PO PRN (20:15)
[2020-12-27] MEDS ORDERED: LACTULOSE 20 GM/30 ML UDCUP PO PRN (20:15)
[2020-12-27] MEDS ORDERED: HYDROMORPHONE 0.5 MG SYG (0.5MG/0.5ML) IVP PRN (20:30)
[2020-12-28] MEDS ORDERED: GLUCAGON 1MG KIT 1 MG ML IM PRN
[2020-12-28] MEDS ORDERED: DEXTROSE 50%-WATER 50 ML DISP.SYRIN IV PRN
[2020-12-28 01:00] VITALS: BP 152/50
[2020-12-28] MEDS: FAMOTIDINE 20MG VIAL IV SCH ×2 (01:43→20:05)
[2020-12-28] MEDS: HEPARIN 5,000 UNIT VIAL SQ SCH ×3 (01:46→20:07)
[2020-12-28 04:11] VITALS: BP 142/49
[2020-12-28] MEDS: INSULIN HUMULIN R 100 UNIT/ML 3ML SQ SCH ×3 (05:59→18:00)
[2020-12-28] MEDS ORDERED: INSULIN HUMULIN R 100 UNIT/ML 3ML SQ SCH (07:30)
[2020-12-28 08:25] VITALS: BP 156/75
[2020-12-28] MEDS: SEVELAMER HCL 800 MG TABLET PO SCH ×2 (11:06→20:05)
[2020-12-28 11:57] VITALS: BP 163/52
[2020-12-28] MEDS ORDERED: LACTATED RINGERS 1000ML 1,000 ML IV ONE (12:03)
[2020-12-28] MEDS: AMLODIPINE 5 MG TAB PO SCH (12:47)
[2020-12-28] MEDS: FERROUS SULFATE 325 MG TABLET.DR PO SCH (12:48)
[2020-12-28] MEDS: ASPIRIN 81MG CHEW TAB PO SCH (12:48)
[2020-12-28] MEDS: LACTATED RINGERS 1000ML 1,000 ML IV SCH (13:30)
[2020-12-28] MEDS: CEFTRIAXONE 500MG VIAL IV SCH (15:42)
[2020-12-28 16:15] VITALS: BP 138/46
[2020-12-28] MEDS: CINACALCET 30 MG TAB PO SCH (17:00)
[2020-12-28 19:40] VITALS: BP 123/49
[2020-12-28] MEDS ORDERED: ATORVASTATIN 20 MG TABLET PO SCH (21:00)
[2020-12-28] MEDS: HYDROMORPHONE 0.5 MG SYG (0.5MG/0.5ML) IVP PRN ×2 (21:27→22:32)
[2020-12-29] VITALS: BP 119/47
[2020-12-29 04:00] VITALS: BP 128/47
[2020-12-29 04:23] LABS: BASOPHILS % (AUTO) 0.8 % (0.0-5.0); EOSINOPHILS % (AUTO) 2.3 % (0.0-8.0); HEMATOCRIT 36.6 % (36-48); LYMPHOCYTES % (AUTO) 18.6 % (21.0-51.0); MEAN CORPUSCULAR HEMOGLOBIN 29.3 pg (27.0-33.0); MEAN CORPUSCULAR VOLUME 91.7 fL (79-99); MONOCYTES % (AUTO) 9.1 % (3.0-13.0); PLATELET COUNT (AUTO) 282 K/uL (130-400); RED BLOOD CELL COUNT(AUTO) 3.99 MIL/uL (4.00-5.50); RED CELL DISTRIBUTION WIDTH 16.4 % (11.0-15.5); WHITE BLOOD COUNT (AUTO) 8.4 K/uL (4.8-10.8)
[2020-12-29 04:40] LABS: ALBUMIN 3.6 g/dL (3.5-5.0); BILIRUBIN,TOTAL 0.5 mg/dL (0.2-1.0); CREATININE 6.8 mg/dL (0.5-1.5); POTASSIUM 5.4 mmol/L (3.5-5.1); TOTAL PROTEIN, SERUM 7.3 g/dL (6.0-8.3)
[2020-12-29] MEDS ORDERED: HYDROMORPHONE 0.5 MG SYG (0.5MG/0.5ML) IVP PRN (04:45)
[2020-12-29] MEDS: INSULIN HUMULIN R 100 UNIT/ML 3ML SQ SCH ×4 (06:00→16:22)
[2020-12-29 08:00] VITALS: BP 128/45
[2020-12-29] MEDS: SEVELAMER HCL 800 MG TABLET PO SCH (09:00)
[2020-12-29] MEDS: FERROUS SULFATE 325 MG TABLET.DR PO SCH (10:12)
[2020-12-29] MEDS: ASPIRIN 81MG CHEW TAB PO SCH (10:12)
[2020-12-29] MEDS: AMLODIPINE 5 MG TAB PO SCH (10:12)
[2020-12-29] MEDS: HEPARIN 5,000 UNIT VIAL SQ SCH (10:13)
[2020-12-29] MEDS: CEFTRIAXONE 500MG VIAL IV SCH (10:48)
[2020-12-29 12:00] VITALS: BP 160/55
[2020-12-29 12:55] LABS: HEMOGLOBIN A1C 6.1 % (4.0-6.0)
[2020-12-29 13:04] LABS: ALBUMIN 3.6 g/dL (3.5-5.0)
[2020-12-29 13:10] LABS: % IRON SATURATION 13.6 % (22-44)
[2020-12-29] MEDS: LACTATED RINGERS 1000ML 1,000 ML IV SCH (13:30)
[2020-12-29 16:00] VITALS: BP 135/34
[2020-12-29] MEDS: CINACALCET 30 MG TAB PO SCH (17:20)
[2020-12-30 08:14] LABS: HEPATITIS Bs ANTIGEN SCREEN P Negative (Negative)
== END 2020-12-29 19:55 | disposition home or self-care (01) | DRG 388 ==
LOC: EDH 15:05 → EDHIP 20:02 → 3AH 12-28 00:04
PROVIDERS: ADMIT Family Medicine; ATTEND Family Medicine
PROC: 0D9670Z Drainage of Stomach with Drainage Device, Via Natural or Artificial Opening (ICD-10-PCS; principal; 2020-12-28)
PROC: 5A1D70Z Performance of Urinary Filtration, Intermittent, Less than 6 Hours Per Day (ICD-10-PCS; 2020-12-29)
DX: K56.609 Unspecified intestinal obstruction, unspecified as to partial versus complete obstruction (principal); N18.6 End stage renal disease; I12.0 Hypertensive chronic kidney disease with stage 5 chronic kidney disease or end stage renal disease; J90 Pleural effusion, not elsewhere classified; R18.8 Other ascites; Z99.2 Dependence on renal dialysis; E11.22 Type 2 diabetes mellitus with diabetic chronic kidney disease; Z20.822 Contact with and (suspected) exposure to COVID-19; E03.9 Hypothyroidism, unspecified; E78.5 Hyperlipidemia, unspecified; K80.20 Calculus of gallbladder without cholecystitis without obstruction; N63.0 Unspecified lump in unspecified breast; Z86.16 Personal history of COVID-19; D63.1 Anemia in chronic kidney disease; K57.30 Diverticulosis of large intestine without perforation or abscess without bleeding; Z82.0 Family history of epilepsy and other diseases of the nervous system; Z82.3 Family history of stroke; Z82.49 Family history of ischemic heart disease and other diseases of the circulatory system; Z82.5 Family history of asthma and other chronic lower respiratory diseases; Z83.3 Family history of diabetes mellitus; Z90.5 Acquired absence of kidney; Z88.8 Allergy status to other drugs, medicaments and biological substances
CPT/HCPCS: 36415; 74021; 74177; 80053; 80061; 82040; 82150; 82550; 82728; 82948; 83036; 83540; 83550; 83605; 83690; 83880; 84484; 85025; 85610; 85730; 86701; 86704; 86706; 87040; 87340; 87390; 87426; 87520; 90935; 93005; 99291; A6250; G0378; J0696; J1170; J1644; J2405; J3490; J7120; Q9967; U0003

== ENCOUNTER → 2021-03-13 | Outpatient (CLI) | payer MEDICARE, OTHER ==
[~2021-03-13] MED LIST changes: -AZIT250T9 PO; +DICY20TA11 PO; -DICY20TA3 PO; +OMEP40CA13 PO; -OMEP40CA21 PO; -[UNRECOGNIZED DRUG - CODE] PO
== END | disposition home or self-care (01) ==
LOC: RAH 08:53
PROVIDERS: ATTEND Family Medicine
DX: N63.42 Unspecified lump in left breast, subareolar (principal); R92.2 Inconclusive mammogram
CPT/HCPCS: 76641; 77066

== ENCOUNTER → 2021-03-30 | Outpatient (CLI) | payer OTHER ==
[~2021-03-30] MED LIST changes: +LIDOCAINE 1%-EPI 1:100,000 20 ML VIAL IJ ONE
[2021-03-30 14:23] LABS: INR 1.03 (0.85-1.15); PARTIAL THROMBOPLASTIN TIME 23.7 SEC (26.3-35.5); PROTHROMBIN TIME 10.7 SEC (9.6-11.6)
== END | disposition home or self-care (01) ==
LOC: RAH 13:12
PROVIDERS: ATTEND Family Medicine
DX: D24.2 Benign neoplasm of left breast (principal); N60.02 Solitary cyst of left breast; Z79.01 Long term (current) use of anticoagulants; N63.23 Unspecified lump in the left breast, lower outer quadrant
CPT/HCPCS: 19083; 19084; 36415; 85610; 85730; A4215 ×4; J3490; 19285

== ENCOUNTER 2021-04-15 20:38 | Observation (INO) | payer OTHER ==
[~2021-04-15] VITALS: Ht 152.4 cm; Wt 65.1 kg
[~2021-04-15 20:38] MED LIST changes: -LIDOCAINE 1%-EPI 1:100,000 20 ML VIAL IJ ONE
[2021-04-15 21:18] LABS: BASOPHILS % (AUTO) 0.3 % (0.0-5.0); EOSINOPHILS % (AUTO) 2.8 % (0.0-8.0); HEMATOCRIT 34.8 % (36-48); LYMPHOCYTES % (AUTO) 6.5 % (21.0-51.0); MEAN CORPUSCULAR HEMOGLOBIN 31.8 pg (27.0-33.0); MEAN CORPUSCULAR HGB CONC 34.5 g/dL (32.0-36.0); MEAN CORPUSCULAR VOLUME 92.3 fL (79-99); MONOCYTES % (AUTO) 3.6 % (3.0-13.0); NEUTROPHILS % (AUTO) 86.3 % (40.0-77.0); PLATELET COUNT (AUTO) 155 K/uL (130-400); RED BLOOD CELL COUNT(AUTO) 3.77 MIL/uL (4.00-5.50); WHITE BLOOD COUNT (AUTO) 11.4 K/uL (4.8-10.8)
[2021-04-15] MEDS ORDERED: ACETAMINOPHEN 325 MG TAB ONE (21:21)
[2021-04-15] MEDS ORDERED: ONDANSETRON HCL 4 MG/2 ML VIAL ONE (21:21)
[2021-04-15 21:33] LABS: ALBUMIN 4.4 g/dL (3.5-5.0); BILIRUBIN,TOTAL 0.5 mg/dL (0.2-1.0); CREATININE 4.1 mg/dL (0.5-1.5); POTASSIUM 4.5 mmol/L (3.5-5.1); TOTAL PROTEIN, SERUM 8.3 g/dL (6.0-8.3)
[2021-04-15] MEDS ORDERED: LEVOFLOXACIN 500 MG/D5W 100 ML 100 ML ONE (22:51)
[2021-04-16] VITALS (7 sets, daily range): BP systolic 115–146; BP diastolic 38–48
[2021-04-16] MEDS ORDERED: DICYCLOMINE HCL 20 MG TAB PO PRN (02:30)
[2021-04-16] MEDS ORDERED: ACETAMINOPHEN-CODEINE 300/30MG TAB PO PRN (02:30)
[2021-04-16] MEDS ORDERED: NITROGLYCERIN 0.4 MG SL TAB SL PRN (02:30)
[2021-04-16] MEDS ORDERED: ALBUTEROL INHALER 90MCG/INH IH PRN (02:30)
[2021-04-16] MEDS ORDERED: ZOLPIDEM TARTRATE 5 MG TAB PO PRN (02:45)
[2021-04-16] MEDS ORDERED: LABETALOL 20 MG/4 ML DISP.SYRIN IV PRN (02:45)
[2021-04-16] MEDS ORDERED: MAG HYDROX/AL HYDROX/SIMETH ES 30 ML SUSP UDCUP PO PRN (02:45)
[2021-04-16] MEDS ORDERED: GLUCAGON 1MG KIT 1 MG ML IM PRN (02:45)
[2021-04-16] MEDS ORDERED: GUAIFENESIN-DM 200/20 MG 10 ML PO PRN (02:45)
[2021-04-16] MEDS: SODIUM CHLORIDE 0.9% 1000ML 1,000 ML IV SCH ×3 (02:45→22:45)
[2021-04-16] MEDS ORDERED: ACETAMINOPHEN 325 MG TAB PO PRN ×2 (02:45)
[2021-04-16] MEDS ORDERED: ONDANSETRON HCL 4 MG/2 ML VIAL IV PRN (02:45)
[2021-04-16] MEDS ORDERED: DEXTROSE 50%-WATER 50 ML DISP.SYRIN IV PRN (02:45)
[2021-04-16] MEDS ORDERED: LACTULOSE 20 GM/30 ML UDCUP PO PRN (02:45)
[2021-04-16] MEDS: INSULIN HUMULIN R 100 UNIT/ML 3ML SQ SCH ×4 (06:47→21:00)
[2021-04-16 07:39] LABS: BASOPHILS % (AUTO) 0.3 % (0.0-5.0); EOSINOPHILS % (AUTO) 2.5 % (0.0-8.0); HEMATOCRIT 33.6 % (36-48); LYMPHOCYTES % (AUTO) 7.5 % (21.0-51.0); MEAN CORPUSCULAR HEMOGLOBIN 31.1 pg (27.0-33.0); MEAN CORPUSCULAR HGB CONC 33.9 g/dL (32.0-36.0); MEAN CORPUSCULAR VOLUME 91.8 fL (79-99); MONOCYTES % (AUTO) 5.8 % (3.0-13.0); NEUTROPHILS % (AUTO) 83.8 % (40.0-77.0); PLATELET COUNT (AUTO) 223 K/uL (130-400); RED BLOOD CELL COUNT(AUTO) 3.66 MIL/uL (4.00-5.50); RED CELL DISTRIBUTION WIDTH 13.1 % (11.0-15.5); WHITE BLOOD COUNT (AUTO) 6.7 K/uL (4.8-10.8)
[2021-04-16] MEDS: SEVELAMER HCL 800 MG TABLET PO SCH ×2 (08:00→17:23)
[2021-04-16 08:41] LABS: ALBUMIN 3.7 g/dL (3.5-5.0); BILIRUBIN,DIRECT 0.1 mg/dL (0.0-0.3); BILIRUBIN,TOTAL 0.4 mg/dL (0.2-1.0); CREATININE 5.2 mg/dL (0.5-1.5); POTASSIUM 4.7 mmol/L (3.5-5.1); TOTAL PROTEIN, SERUM 7.2 g/dL (6.0-8.3)
[2021-04-16] MEDS: INSULIN GLARGINE 100 UNITS/ML 10 ML VIAL SQ SCH (09:00)
[2021-04-16] MEDS: FAMOTIDINE/PF 20 MG/2 ML VIAL IV SCH (10:57)
[2021-04-16] MEDS: AMLODIPINE BESYLATE 5 MG TAB PO SCH (10:57)
[2021-04-16] MEDS: ISOSORBIDE MONO 30MG TAB SR PO SCH (10:58)
[2021-04-16] MEDS: FERROUS SULFATE 325 MG TABLET.DR PO SCH (10:58)
[2021-04-16] MEDS: ASPIRIN 81MG TAB.CHEW PO SCH (10:58)
[2021-04-16] MEDS: VITAMIN B COMPLEX 1 CAPSULE PO SCH (10:58)
[2021-04-16] MEDS: ENOXAPARIN SODIUM 30 MG/0.3 ML SQ SCH (12:23)
[2021-04-16] MEDS: CINACALCET HCL 30 MG TAB PO SCH ×2 (17:00→17:23)
[2021-04-16] MEDS: IPRATROPIUM 0.5 MG/2.5 ML INH IH SCH (18:25)
[2021-04-16] MEDS ORDERED: RENAL DOSE IV PRN (18:30)
[2021-04-16] MEDS: METRONIDAZOLE 500 MG TABLET PO SCH (19:27)
[2021-04-16] MEDS ORDERED: ATORVASTATIN CALCIUM 20 MG TABLET PO SCH (21:00)
[2021-04-16] MEDS: METOCLOPRAMIDE 5 MG TABLET PO SCH (21:00)
[2021-04-17] MEDS: METRONIDAZOLE 500 MG TABLET PO SCH ×2 (01:47→09:50)
[2021-04-17 03:59] VITALS: BP 109/49
[2021-04-17 04:38] LABS: BASOPHILS % (AUTO) 0.8 % (0.0-5.0); EOSINOPHILS % (AUTO) 5.4 % (0.0-8.0); HEMATOCRIT 29.9 % (36-48); LYMPHOCYTES % (AUTO) 20.4 % (21.0-51.0); MEAN CORPUSCULAR HEMOGLOBIN 31.7 pg (27.0-33.0); MEAN CORPUSCULAR HGB CONC 34.1 g/dL (32.0-36.0); MEAN CORPUSCULAR VOLUME 92.9 fL (79-99); MONOCYTES % (AUTO) 11.1 % (3.0-13.0); NEUTROPHILS % (AUTO) 62.1 % (40.0-77.0); PLATELET COUNT (AUTO) 180 K/uL (130-400); RED BLOOD CELL COUNT(AUTO) 3.22 MIL/uL (4.00-5.50); WHITE BLOOD COUNT (AUTO) 4.9 K/uL (4.8-10.8)
[2021-04-17 05:03] LABS: CREATININE 6.5 mg/dL (0.5-1.5); POTASSIUM 4.7 mmol/L (3.5-5.1)
[2021-04-17] MEDS ORDERED: ALENDRONATE SODIUM 35 MG TAB PO SCH (06:00)
[2021-04-17] MEDS: INSULIN HUMULIN R 100 UNIT/ML 3ML SQ SCH ×2 (06:08→11:30)
[2021-04-17] MEDS: IPRATROPIUM 0.5 MG/2.5 ML INH IH SCH (06:08)
[2021-04-17] MEDS: METOCLOPRAMIDE 5 MG TABLET PO SCH ×2 (06:16→11:30)
[2021-04-17 07:30] VITALS: BP 151/35
[2021-04-17] MEDS ORDERED: LEVOFLOXACIN 500 MG TABLET PO SCH (09:00)
[2021-04-17] MEDS: VITAMIN B COMPLEX 1 CAPSULE PO SCH (09:36)
[2021-04-17] MEDS: ASPIRIN 81MG TAB.CHEW PO SCH (09:36)
[2021-04-17] MEDS: AMLODIPINE BESYLATE 5 MG TAB PO SCH (09:36)
[2021-04-17] MEDS: FAMOTIDINE/PF 20 MG/2 ML VIAL IV SCH (09:37)
[2021-04-17] MEDS: ENOXAPARIN SODIUM 30 MG/0.3 ML SQ SCH (09:37)
[2021-04-17] MEDS: ISOSORBIDE MONO 30MG TAB SR PO SCH (09:37)
[2021-04-17] MEDS: INSULIN GLARGINE 100 UNITS/ML 10 ML VIAL SQ SCH (09:45)
[2021-04-17] MEDS: SEVELAMER HCL 800 MG TABLET PO SCH (09:50)
[2021-04-17] MEDS: FERROUS SULFATE 325 MG TABLET.DR PO SCH (09:50)
[2021-04-17] MEDS: SODIUM CHLORIDE 0.9% 1000ML 1,000 ML IV SCH ×2 (09:51→12:00)
[2021-04-17] MEDS ORDERED: AMOX-426 PO (10:42)
[2021-04-17 11:00] VITALS: BP 147/42
[2021-04-17] MEDS ORDERED: IPRATROPIUM BROMIDE NASAL SCH (21:00)
== END 2021-04-17 14:10 | disposition home or self-care (01) ==
LOC: EDH 20:38 → EDHIP 23:17 → 3AH 04-16 00:26
PROVIDERS: ADMIT Internal Medicine Critical Care Medicine; ATTEND Internal Medicine Critical Care Medicine
DX: A04.9 Bacterial intestinal infection, unspecified (principal); E11.22 Type 2 diabetes mellitus with diabetic chronic kidney disease; I12.0 Hypertensive chronic kidney disease with stage 5 chronic kidney disease or end stage renal disease; N18.6 End stage renal disease; E78.5 Hyperlipidemia, unspecified; E03.9 Hypothyroidism, unspecified; Z86.16 Personal history of COVID-19; Z90.5 Acquired absence of kidney; Z99.2 Dependence on renal dialysis; Z79.4 Long term (current) use of insulin; Z79.82 Long term (current) use of aspirin; Z79.899 Other long term (current) drug therapy; Z88.8 Allergy status to other drugs, medicaments and biological substances
CPT/HCPCS: 36415 ×3; 71045; 80048; 80053 ×2; 82248; 82948 ×6; 83605; 83690; 84443; 84484; 85025 ×3; 87040 ×2; 93005; 94640 ×2; 94664; 96372 ×2; 96374; 96376; 99285; G0378 ×37; J1650 ×2; J1956; J2405; J3490 ×2

== ENCOUNTER → 2022-05-23 | Outpatient (CLI) | payer OTHER ==
[~2022-05-23] MED LIST changes: +ACET-2079 PO; -ACET1TAB25 PO; +AMOX-426 PO; -CINA30TA5 PO; -DICY20TA11 PO; +DICY20TA3 PO; +GADOTERATE MEGLUMINE 10 MMOL/20 ML VIAL IV ONE; -OMEP40CA13 PO; +OMEP40CA21 PO
== END | disposition home or self-care (01) ==
LOC: RAH 05-14 07:50
PROVIDERS: ATTEND Family Medicine
DX: N63.42 Unspecified lump in left breast, subareolar (principal)
CPT/HCPCS: 77047

== ENCOUNTER → 2022-07-02 | Outpatient (CLI) | payer OTHER ==
[~2022-07-02] MED LIST changes: -GADOTERATE MEGLUMINE 10 MMOL/20 ML VIAL IV ONE
== END | disposition home or self-care (01) ==
LOC: RAH 09:31
PROVIDERS: ATTEND Family Medicine
DX: R92.8 Other abnormal and inconclusive findings on diagnostic imaging of breast (principal); N63.42 Unspecified lump in left breast, subareolar
CPT/HCPCS: 19083; 88305; 88360; A4215 ×3

== ENCOUNTER → 2022-07-18 | Outpatient (CLI) | payer OTHER ==
[~2022-07-18] MED LIST changes: +ASPI-1005 PO; +CINA30 PO; +FERR-72 PO; +LIDOCAINE HCL 1% 20 ML VIAL ONE; +OMEP20CA12 PO; +VITA1CAP PO
[2022-07-18 08:47] LABS: INR 0.94 (0.85-1.15); PROTHROMBIN TIME 10.3 SEC (9.6-11.6)
== END | disposition home or self-care (01) ==
LOC: RAH 07:40
PROVIDERS: ATTEND Internal Medicine Medical Oncology
DX: C50.811 Malignant neoplasm of overlapping sites of right female breast (principal); Z79.01 Long term (current) use of anticoagulants
CPT/HCPCS: 19083; 85610; 85730; 36415; 88305; 88360; 88342; A4215 ×3

== ENCOUNTER 2022-08-17 09:49 | Day surgery (SDC) | payer OTHER ==
[2022-08-16 14:29] LABS: INR 0.94 (0.85-1.15); PROTHROMBIN TIME 10.3 SEC (9.6-11.6)
[2022-08-16 14:30] LABS: PARTIAL THROMBOPLASTIN TIME 27.1 SEC (26.3-35.5)
[~2022-08-17 09:49] MED LIST changes: -ASPI-1005 PO; -CINA30 PO; -FERR-72 PO; -LIDOCAINE HCL 1% 20 ML VIAL ONE; -OMEP20CA12 PO; -VITA1CAP PO
[2022-08-17] MEDS ORDERED: DEXTROSE 50%-WATER 50 ML DISP.SYRIN IV ONE (15:04)
[2022-08-17] MEDS ORDERED: LIDOCAINE HCL-MPF 2% 10ML AMP IJ ONE ×2 (16:04→16:29)
[2022-08-17] MEDS ORDERED: HEPARIN 1,000 UNIT VIAL ONE (16:04)
[2022-08-17] MEDS ORDERED: MIDAZOLAM HCL 5 MG/ML 2ML VIAL IV ONE (16:04)
[2022-08-17] MEDS ORDERED: FENTANYL CITRATE PF 50 MCG/1 ML 2ML VIAL ONE (16:24)
[2022-08-17] MEDS ORDERED: OCTYL 2-CYANOACRYLATE 1 EACH TP ONE ×3 (16:43→16:51)
== END 2022-08-17 18:15 | disposition home or self-care (01) ==
LOC: DAH 09:49
PROVIDERS: ATTEND Internal Medicine Medical Oncology
DX: C50.112 Malignant neoplasm of central portion of left female breast (principal); E11.22 Type 2 diabetes mellitus with diabetic chronic kidney disease; I12.0 Hypertensive chronic kidney disease with stage 5 chronic kidney disease or end stage renal disease; N18.6 End stage renal disease; E11.42 Type 2 diabetes mellitus with diabetic polyneuropathy; E11.319 Type 2 diabetes mellitus with unspecified diabetic retinopathy without macular edema; M19.90 Unspecified osteoarthritis, unspecified site; E78.5 Hyperlipidemia, unspecified; E66.3 Overweight; Z79.82 Long term (current) use of aspirin; Z79.01 Long term (current) use of anticoagulants; Z79.899 Other long term (current) drug therapy; Z90.5 Acquired absence of kidney
CPT/HCPCS: 85610; 85730; 36415; 36561; 77001; 82948 ×3; C1894; C1788; J3010; J7070; J1644 ×2; J3490 ×2; J2250; A4215; A4222; A4221; A4663; A4216; A4606; A4223 ×3; 36571; 99156; 99157

== ENCOUNTER 2022-12-31 21:06 | Emergency (ER) | payer OTHER ==
[~2022-12-31] VITALS: Ht 152.4 cm; Wt 63.5 kg
[~2022-12-31 21:06] MED LIST changes: -ACET-2079 PO; -ALBU8.5H8 IH; -AMOX-426 PO; +ASPI-1005 PO; -ASPI-1197 PO; +CINA30 PO; -DICY20TA3 PO; +FERR-72 PO; -FERR325T22 PO; -IPRA42SP NS; -NITR0.4T50 SL; +OMEP20CA12 PO; -OMEP40CA21 PO; -ONDA4TAB10 PO; -SEVE2.4P PO; +VITA1CAP PO; -VITA1CAP17 PO
[2022-12-31 21:50] LABS: BASOPHILS % (AUTO) 0.4 % (0.0-5.0); EOSINOPHILS % (AUTO) 3.2 % (0.0-8.0); LYMPHOCYTES % (AUTO) 8.1 % (21.0-51.0); MEAN CORPUSCULAR HEMOGLOBIN 29.2 pg (27.0-33.0); MEAN CORPUSCULAR VOLUME 91.1 fL (79-99); PLATELET COUNT (AUTO) 214 K/uL (130-400); RED BLOOD CELL COUNT(AUTO) 3.84 MIL/uL (4.00-5.50); RED CELL DISTRIBUTION WIDTH 14.8 % (11.0-15.5); WHITE BLOOD COUNT (AUTO) 6.9 K/uL (4.8-10.8)
[2022-12-31 22:00] LABS: CREATININE 7.8 mg/dL (0.5-1.5); POTASSIUM 4.6 mmol/L (3.5-5.1)
[2022-12-31 22:04] LABS: ALBUMIN 3.9 g/dL (3.5-5.0); TOTAL PROTEIN, SERUM 7.8 g/dL (6.0-8.3)
[2022-12-31 22:25] LABS: B-TYPE NATRIURETIC PEPTIDE 51 pg/mL (0-100)
[2023-01-01 02:38] VITALS: BP 136/54
== END 2023-01-01 02:41 | disposition home or self-care (01) ==
LOC: EDH 21:06
DX: U07.1 COVID-19 (principal); J40 Bronchitis, not specified as acute or chronic; C50.919 Malignant neoplasm of unspecified site of unspecified female breast; E11.22 Type 2 diabetes mellitus with diabetic chronic kidney disease; I12.0 Hypertensive chronic kidney disease with stage 5 chronic kidney disease or end stage renal disease; N18.6 End stage renal disease; Z20.822 Contact with and (suspected) exposure to COVID-19; Z79.4 Long term (current) use of insulin; Z79.82 Long term (current) use of aspirin; Z79.899 Other long term (current) drug therapy
CPT/HCPCS: 99285; 71045; 87635; 84484; 80053; 83880; 85025; 87040 ×2; 87804 ×2; 83605; 36415; 93005; C9803

== ENCOUNTER 2023-03-06 15:29 | Emergency (ER) | payer OTHER ==
[~2023-03-06] VITALS: Ht 152.4 cm; Wt 64.9 kg
[2023-03-06 16:03] LABS: BASOPHILS % (AUTO) 0.6 % (0.0-5.0); EOSINOPHILS % (AUTO) 3.8 % (0.0-8.0); LYMPHOCYTES % (AUTO) 17.5 % (21.0-51.0); MEAN CORPUSCULAR HEMOGLOBIN 30.7 pg (27.0-33.0); MEAN CORPUSCULAR HGB CONC 32.3 g/dL (32.0-36.0); MEAN CORPUSCULAR VOLUME 95.2 fL (79-99); MONOCYTES % (AUTO) 7.7 % (3.0-13.0); NEUTROPHILS % (AUTO) 69.9 % (40.0-77.0); PLATELET COUNT (AUTO) 244 K/uL (130-400); RED BLOOD CELL COUNT(AUTO) 2.31 MIL/uL (4.00-5.50); WHITE BLOOD COUNT (AUTO) 8.3 K/uL (4.8-10.8)
[2023-03-06 16:11] LABS: CREATININE 5.6 mg/dL (0.5-1.5); POTASSIUM 3.9 mmol/L (3.5-5.1)
[2023-03-06 16:15] LABS: ALBUMIN 3.8 g/dL (3.5-5.0); TOTAL PROTEIN, SERUM 7.1 g/dL (6.0-8.3)
[2023-03-06 19:52] VITALS: BP 165/46
== END 2023-03-06 20:07 | disposition home or self-care (01) ==
LOC: EDH 15:29
DX: D64.9 Anemia, unspecified (principal); I12.0 Hypertensive chronic kidney disease with stage 5 chronic kidney disease or end stage renal disease; E11.22 Type 2 diabetes mellitus with diabetic chronic kidney disease; E78.00 Pure hypercholesterolemia, unspecified; Z79.899 Other long term (current) drug therapy; Z79.82 Long term (current) use of aspirin; Z85.3 Personal history of malignant neoplasm of breast; Z99.2 Dependence on renal dialysis; Z90.49 Acquired absence of other specified parts of digestive tract; Z98.890 Other specified postprocedural states
CPT/HCPCS: 36415; 80053; 85025

== ENCOUNTER → 2023-04-15 | Outpatient (CLI) | payer OTHER | END | disposition home or self-care (01) | LOC: RAH 09:19 | PROVIDERS: ATTEND Internal Medicine Medical Oncology | DX: C50.112 Malignant neoplasm of central portion of left female breast (principal) ==

== ENCOUNTER 2023-04-22 09:26 | Emergency (ER) | payer OTHER ==
[~2023-04-22] VITALS: Ht 152.4 cm; Wt 63.5 kg
[2023-04-22 09:37] VITALS: BP 158/61
[2023-04-24] MEDS ORDERED: SEVE0.8P3 PO (17:46)
[2023-04-24] MEDS ORDERED: EXEM25TA PO (17:46)
== END 2023-04-22 10:35 | disposition home or self-care (01) ==
LOC: EDH 09:26
DX: T82.41XA Breakdown (mechanical) of vascular dialysis catheter, initial encounter (principal); E11.9 Type 2 diabetes mellitus without complications; I10 Essential (primary) hypertension; Z79.4 Long term (current) use of insulin; Z79.82 Long term (current) use of aspirin; Z79.899 Other long term (current) drug therapy; Z85.3 Personal history of malignant neoplasm of breast

== ENCOUNTER 2023-05-10 01:53 | Observation (INO) | payer OTHER ==
[~2023-05-10] VITALS: Ht 152.4 cm; Wt 63.5 kg
[~2023-05-10 01:53] MED LIST changes: +EXEM25TA PO; +SEVE0.8P3 PO
[2023-05-10 04:27] LABS: BASOPHILS % (AUTO) 0.3 % (0.0-5.0); EOSINOPHILS % (AUTO) 3.3 % (0.0-8.0); HEMATOCRIT 23.8 % (36-48); LYMPHOCYTES % (AUTO) 10.4 % (21.0-51.0); MEAN CORPUSCULAR HEMOGLOBIN 30.4 pg (27.0-33.0); MEAN CORPUSCULAR HGB CONC 31.5 g/dL (32.0-36.0); MEAN CORPUSCULAR VOLUME 96.4 fL (79-99); MONOCYTES % (AUTO) 10.1 % (3.0-13.0); NEUTROPHILS % (AUTO) 75.3 % (40.0-77.0); PLATELET COUNT (AUTO) 232 K/uL (130-400); RED BLOOD CELL COUNT(AUTO) 2.47 MIL/uL (4.00-5.50); RED CELL DISTRIBUTION WIDTH 18.2 % (11.0-15.5); WHITE BLOOD COUNT (AUTO) 6.6 K/uL (4.8-10.8)
[2023-05-10] MEDS ORDERED: HEPARIN 5,000 UNIT VIAL SQ PRN (04:30)
[2023-05-10 04:46] LABS: CREATININE 4.1 mg/dL (0.5-1.5); POTASSIUM 3.3 mmol/L (3.5-5.1)
[2023-05-10 04:50] LABS: INR 1.07 (0.85-1.15); PROTHROMBIN TIME 11.6 SEC (9.6-11.6)
[2023-05-10 04:51] LABS: ALBUMIN 2.5 g/dL (3.5-5.0)
[2023-05-10 04:56] LABS: PARTIAL THROMBOPLASTIN TIME 19.9 SEC (26.3-35.5)
[2023-05-10] MEDS ORDERED: GLUCAGON 1MG KIT 1 MG ML IM PRN (05:00)
[2023-05-10] MEDS ORDERED: NITROGLYCERIN 0.4 MG SL TAB SL PRN (05:00)
[2023-05-10] MEDS ORDERED: LACTULOSE 20 GM/30 ML UDCUP PO PRN (05:00)
[2023-05-10] MEDS ORDERED: ONDANSETRON 4MG INJ IV PRN (05:00)
[2023-05-10] MEDS ORDERED: ACETAMINOPHEN 325 MG TAB PO PRN ×2 (05:00)
[2023-05-10] MEDS ORDERED: DEXTROSE 50%-WATER 50 ML DISP.SYRIN IV PRN (05:00)
[2023-05-10] MEDS ORDERED: GUAIFENESIN-DM 200/20 MG 10 ML PO PRN (05:00)
[2023-05-10] MEDS ORDERED: MAG/ALUM/SIMETH 30 ML UDCUP PO PRN (05:00)
[2023-05-10] MEDS ORDERED: HEPARIN 25,000 UNITS/250ML D5W 250 ML IV ONE (05:06)
[2023-05-10] MEDS: HEPARIN 25,000 UNITS/250ML D5W 250 ML IV SCH ×2 (05:44→12:30)
[2023-05-10] MEDS: INSULIN HUMULIN R 100 UNIT/ML 3ML SQ SCH ×4 (07:30→19:26)
[2023-05-10] MEDS: FAMOTIDINE 20MG TAB PO SCH ×2 (09:17→19:28)
[2023-05-10] MEDS ORDERED: APIXABAN 5 MG TABLET ONE (11:29)
[2023-05-10] MEDS: SEVELAMER HCL 800 MG TABLET PO SCH ×2 (13:46→19:28)
[2023-05-10] MEDS ORDERED: APIX5TAB PO (15:36)
[2023-05-10] MEDS ORDERED: APIXABAN 5 MG TABLET PO SCH (21:00)
[2023-05-11 07:11] VITALS: BP 158/37
[2023-05-11 07:22] LABS: BASOPHILS % (AUTO) 0.3 % (0.0-5.0); HEMATOCRIT 23.9 % (36-48); LYMPHOCYTES % (AUTO) 11.9 % (21.0-51.0); MEAN CORPUSCULAR HEMOGLOBIN 30.3 pg (27.0-33.0); MEAN CORPUSCULAR HGB CONC 31.8 g/dL (32.0-36.0); MEAN CORPUSCULAR VOLUME 95.2 fL (79-99); MONOCYTES % (AUTO) 7.2 % (3.0-13.0); NEUTROPHILS % (AUTO) 78.9 % (40.0-77.0); PLATELET COUNT (AUTO) 239 K/uL (130-400); RED BLOOD CELL COUNT(AUTO) 2.51 MIL/uL (4.00-5.50); RED CELL DISTRIBUTION WIDTH 18.3 % (11.0-15.5)
[2023-05-11] MEDS: INSULIN HUMULIN R 100 UNIT/ML 3ML SQ SCH (07:30)
[2023-05-11 07:44] LABS: CREATININE 5.9 mg/dL (0.5-1.5); POTASSIUM 3.8 mmol/L (3.5-5.1)
[2023-05-11] MEDS ORDERED: APIXABAN 5 MG TABLET PO SCH (09:00)
[2023-05-11] MEDS ORDERED: FERROUS SULFATE 325 MG TABLET.DR PO SCH (09:00)
[2023-05-11] MEDS ORDERED: VITAMIN B COMPLEX 1 CAPSULE PO SCH (09:00)
[2023-05-11] MEDS ORDERED: ASPIRIN 81MG CHEW TAB PO SCH (09:00)
[2023-05-11] MEDS ORDERED: AMLODIPINE 5 MG TAB PO SCH (09:00)
[2023-05-11] MEDS ORDERED: EXEMESTANE 25 MG PO SCH (09:00)
[2023-05-11] MEDS ORDERED: INSULIN GLARGINE 100 UNITS/ML 10 ML VIAL SQ SCH (09:00)
[2023-05-11] MEDS ORDERED: ATORVASTATIN 20 MG TABLET PO SCH (09:00)
[2023-05-11] MEDS ORDERED: CINACALCET 30 MG TAB PO SCH (09:00)
[2023-05-11] MEDS ORDERED: ISOSORBIDE MONO 30MG SR TAB PO SCH (09:00)
[2023-05-11] MEDS ORDERED: ***HM***(Omeprazole 20 MG) PO SCH (09:00)
[2023-05-11] MEDS: SEVELAMER HCL 800 MG TABLET PO SCH (09:02)
[2023-05-11] MEDS: FAMOTIDINE 20MG TAB PO SCH (09:02)
== END 2023-05-11 10:57 ==
LOC: EDH 01:53 → EDHIP 04:47
PROVIDERS: ADMIT Internal Medicine Critical Care Medicine; ATTEND Internal Medicine Critical Care Medicine
DX: I82.622 Acute embolism and thrombosis of deep veins of left upper extremity (principal); E87.1 Hypo-osmolality and hyponatremia; I12.0 Hypertensive chronic kidney disease with stage 5 chronic kidney disease or end stage renal disease; N18.6 End stage renal disease; I82.612 Acute embolism and thrombosis of superficial veins of left upper extremity; E11.22 Type 2 diabetes mellitus with diabetic chronic kidney disease; E78.00 Pure hypercholesterolemia, unspecified; I25.10 Atherosclerotic heart disease of native coronary artery without angina pectoris; I51.7 Cardiomegaly; Z85.3 Personal history of malignant neoplasm of breast; Z90.710 Acquired absence of both cervix and uterus; Z99.2 Dependence on renal dialysis; Z79.899 Other long term (current) drug therapy; Z98.890 Other specified postprocedural states; Z79.4 Long term (current) use of insulin; Z79.82 Long term (current) use of aspirin
CPT/HCPCS: 96372 ×2; 96365; 96366; 99285; 84484; 80053; 85025 ×2; 85610; 85730; 86850; 86900; 86901; 82948 ×5; 36415 ×2; 71045; 93971; 93005; 80048; G0378 ×30; J1644 ×2

== ENCOUNTER → 2023-09-03 | Outpatient (CLI) | payer OTHER | END | disposition home or self-care (01) | LOC: RAH 12:42 | PROVIDERS: ATTEND Internal Medicine Medical Oncology | DX: Z51.11 Encounter for antineoplastic chemotherapy (principal); I08.3 Combined rheumatic disorders of mitral, aortic and tricuspid valves | CPT/HCPCS: 93306 ==

== ENCOUNTER 2023-10-31 10:18 | Emergency (ER) | payer OTHER ==
[~2023-10-31] VITALS: Ht 157.5 cm; Wt 65.8 kg
[~2023-10-31 10:18] MED LIST changes: +AMLO5TAB4 PO; +FAMO20TA8 PO; -INSLAN SQ; -ISOS30TA92 PO
[2023-10-31 12:02] LABS: BASOPHILS # (AUTO) 0.04 K/uL (0.00-0.20); BASOPHILS % (AUTO) 0.6 % (0.0-5.0); EOSINOPHILS # (AUTO) 0.04 K/uL (0.00-0.70); EOSINOPHILS % (AUTO) 0.6 % (0.0-8.0); IMMATURE GRANULOCYTE ABSOLUTE 0.02 K/uL (0-1); LYMPHOCYTES % (AUTO) 13.6 % (21.0-51.0); MEAN CORPUSCULAR HEMOGLOBIN 26.7 pg (27.0-33.0); MEAN CORPUSCULAR VOLUME 83.6 fL (79-99); MONOCYTES # (AUTO) 0.5 K/uL (0.1-1.0); MONOCYTES % (AUTO) 6.5 % (3.0-13.0); NEUTROPHILS # (AUTO) 5.6 K/uL (1.8-7.7); NEUTROPHILS % (AUTO) 78.4 % (40.0-77.0); PLATELET COUNT (AUTO) 287 K/uL (130-400); RED BLOOD CELL COUNT(AUTO) 3.59 MIL/uL (4.00-5.50); WHITE BLOOD COUNT (AUTO) 7.2 K/uL (4.8-10.8)
[2023-10-31 15:12] VITALS: BP 131/63; PULSE 64; RESP 18; O2SAT 98
== END 2023-10-31 15:51 | disposition home or self-care (01) ==
LOC: EDH 10:18
DX: T82.838A Hemorrhage due to vascular prosthetic devices, implants and grafts, initial encounter (principal); E11.9 Type 2 diabetes mellitus without complications; E78.00 Pure hypercholesterolemia, unspecified; Z79.82 Long term (current) use of aspirin; Z79.899 Other long term (current) drug therapy; Z88.8 Allergy status to other drugs, medicaments and biological substances; Y84.1 Kidney dialysis as the cause of abnormal reaction of the patient, or of later complication, without mention of misadventure at the time of the procedure
CPT/HCPCS: 36415; 85025

== ENCOUNTER 2024-03-09 08:42 | Emergency (ER) | payer OTHER ==
[~2024-03-09 08:42] MED LIST changes: -AMLO5TAB4 PO; +APIX2.5T PO; -FAMO20TA8 PO; +FE F1CAP33 PO; -FERR-72 PO; +ISOS30TA92 PO
[2024-03-09 09:20] LABS: BASOPHILS # (AUTO) 0.05 K/uL (0.00-0.20); BASOPHILS % (AUTO) 0.9 % (0.0-5.0); EOSINOPHILS # (AUTO) 0.26 K/uL (0.00-0.70); EOSINOPHILS % (AUTO) 4.6 % (0.0-8.0); HEMATOCRIT 42.5 % (36-48); IMMATURE GRANULOCYTE ABSOLUTE 0.02 K/uL (0-1); LYMPHOCYTES # (AUTO) 1.2 K/uL (1.0-4.8); LYMPHOCYTES % (AUTO) 20.8 % (21.0-51.0); MEAN CORPUSCULAR HEMOGLOBIN 28.5 pg (27.0-33.0); MEAN CORPUSCULAR HGB CONC 32.9 g/dL (32.0-36.0); MEAN CORPUSCULAR VOLUME 86.6 fL (79-99); MONOCYTES # (AUTO) 0.3 K/uL (0.1-1.0); MONOCYTES % (AUTO) 4.4 % (3.0-13.0); NEUTROPHILS # (AUTO) 3.9 K/uL (1.8-7.7); NEUTROPHILS % (AUTO) 68.9 % (40.0-77.0); PLATELET COUNT (AUTO) 202 K/uL (130-400); RED BLOOD CELL COUNT(AUTO) 4.91 MIL/uL (4.00-5.50); RED CELL DISTRIBUTION WIDTH 20.8 % (11.0-15.5); WHITE BLOOD COUNT (AUTO) 5.7 K/uL (4.8-10.8)
[2024-03-09 10:03] LABS: CREATININE 5.9 mg/dL (0.5-1.0); POTASSIUM 4.2 mmol/L (3.5-5.1)
[2024-03-09 10:07] LABS: ALBUMIN 3.8 g/dL (3.5-5.0); BILIRUBIN,TOTAL 0.6 mg/dL (0.2-1.0); TOTAL PROTEIN, SERUM 7.1 g/dL (6.0-8.3)
[2024-03-09 11:22] VITALS: BP 169/51; PULSE 90; RESP 14; O2SAT 95
== END 2024-03-09 11:28 | disposition home or self-care (01) ==
LOC: EDH 08:42
DX: T82.838A Hemorrhage due to vascular prosthetic devices, implants and grafts, initial encounter (principal); E11.9 Type 2 diabetes mellitus without complications; E78.00 Pure hypercholesterolemia, unspecified; I10 Essential (primary) hypertension; I12.0 Hypertensive chronic kidney disease with stage 5 chronic kidney disease or end stage renal disease; E11.22 Type 2 diabetes mellitus with diabetic chronic kidney disease; N18.6 End stage renal disease; Z99.2 Dependence on renal dialysis; Z79.01 Long term (current) use of anticoagulants; Z79.811 Long term (current) use of aromatase inhibitors; Z79.82 Long term (current) use of aspirin; Z79.899 Other long term (current) drug therapy; Z85.3 Personal history of malignant neoplasm of breast; Z90.5 Acquired absence of kidney
CPT/HCPCS: 36415; 80053; 85025

== ENCOUNTER 2024-08-30 16:42 | Inpatient (IN) | payer OTHER ==
[~2024-08-30] VITALS: Ht 147.3 cm; Wt 53.5 kg
[2024-08-30 17:28] LABS: BASOPHILS # (AUTO) 0.04 K/uL (0.00-0.20); BASOPHILS % (AUTO) 0.6 % (0.0-5.0); EOSINOPHILS # (AUTO) 0.27 K/uL (0.00-0.70); EOSINOPHILS % (AUTO) 3.7 % (0.0-8.0); HEMATOCRIT 29.8 % (36-48); IMMATURE GRANULOCYTE ABSOLUTE 0.03 K/uL (0-1); LYMPHOCYTES # (AUTO) 1.2 K/uL (1.0-4.8); LYMPHOCYTES % (AUTO) 16.9 % (21.0-51.0); MEAN CORPUSCULAR HEMOGLOBIN 30.8 pg (27.0-33.0); MEAN CORPUSCULAR HGB CONC 33.6 g/dL (32.0-36.0); MEAN CORPUSCULAR VOLUME 91.7 fL (79-99); MONOCYTES # (AUTO) 0.4 K/uL (0.1-1.0); MONOCYTES % (AUTO) 5.6 % (3.0-13.0); NEUTROPHILS # (AUTO) 5.3 K/uL (1.8-7.7); NEUTROPHILS % (AUTO) 72.8 % (40.0-77.0); PLATELET COUNT (AUTO) 222 K/uL (130-400); RED BLOOD CELL COUNT(AUTO) 3.25 MIL/uL (4.00-5.50); RED CELL DISTRIBUTION WIDTH 16.6 % (11.0-15.5); WHITE BLOOD COUNT (AUTO) 7.3 K/uL (4.8-10.8)
[2024-08-30 18:13] LABS: POTASSIUM 5.1 mmol/L (3.5-5.1)
[2024-08-30] MEDS: cefTRIAXone 1G VIAL IVPB ONE (18:47)
[2024-08-30] MEDS: AZITHROMYCIN 500MG+NS 250ML 250 ML IV ONE (18:56)
[2024-08-30] MEDS ORDERED: guaiFENesin-DM 200/20MG 10ML PO PRN (19:00)
[2024-08-30] MEDS ORDERED: NITROGLYCERIN 0.4 MG SL TAB SL PRN (19:00)
[2024-08-30] MEDS ORDERED: GLUCAGON 1MG KIT 1 MG ML IM PRN (19:00)
[2024-08-30] MEDS ORDERED: cefTRIAXone 1G VIAL IV SCH (19:00)
[2024-08-30] MEDS ORDERED: acetaMINOPHEN 325 MG TAB PO PRN (19:00)
[2024-08-30] MEDS ORDERED: MAG/ALUM/SIMETH 30 ML UDCUP PO PRN (19:00)
[2024-08-30] MEDS ORDERED: LACTULOSE 20 GM/30 ML UDCUP PO PRN (19:00)
[2024-08-30] MEDS ORDERED: DEXTROSE 50%-WATER 50 ML DISP.SYRIN IV PRN (19:00)
[2024-08-30 19:10] VITALS: PULSE 78; RESP 19; O2SAT 99
[2024-08-30 20:14] LABS: COVID19 (SARS ANTIGEN RAPID) PRESUMPTIVE NEGATIVE (NEGATIVE); INFLUENZA TYPE A Negative For Type A (NEGATIVE); INFLUENZA TYPE B Negative For Type B (NEGATIVE)
[2024-08-30] MEDS: INSULIN humuLIN R 100 UNIT/ML 3ML SQ SCH (21:43)
[2024-08-30] MEDS: FAMOTIDINE 20MG TAB PO SCH (21:43)
[2024-08-30 22:42] VITALS: BP 154/56; PULSE 87; RESP 20; TEMP 98.5
[2024-08-30 23:40] VITALS: PULSE 87; RESP 17
[2024-08-30] MEDS: IpraTROPium/alBUTERol SULFATE 3 ML SOLUTION IH SCH (23:40)
[2024-08-31] VITALS (27 sets, daily range): BP systolic 107–165; BP diastolic 40–89; PULSE 69–100; RESP 16–20; TEMP 97.6–98.4; O2SAT 93–98
[2024-08-31] MEDS: 0.9%NACL 1000ML 1,000 ML IV SCH (08:57)
[2024-08-31] MEDS ORDERED: PHARMACY COMMUNICATION MISC SCH (09:30)
[2024-08-31] MEDS: IpraTROPium/alBUTERol SULFATE 3 ML SOLUTION IH ONE (11:13)
[2024-08-31 13:01] LABS: HEMATOCRIT 24.4 % (36-48); MEAN CORPUSCULAR HEMOGLOBIN 30.8 pg (27.0-33.0); MEAN CORPUSCULAR HGB CONC 34.4 g/dL (32.0-36.0); MEAN CORPUSCULAR VOLUME 89.4 fL (79-99); RED BLOOD CELL COUNT(AUTO) 2.73 MIL/uL (4.00-5.50); RED CELL DISTRIBUTION WIDTH 16.5 % (11.0-15.5); WHITE BLOOD COUNT (AUTO) 4.8 K/uL (4.8-10.8)
[2024-08-31 13:10] LABS: ALBUMIN 3.5 g/dL (3.5-5.0); BILIRUBIN,TOTAL 0.4 mg/dL (0.2-1.0); CREATININE 2.5 mg/dL (0.5-1.0); TOTAL PROTEIN, SERUM 6.9 g/dL (6.0-8.3)
[2024-08-31] MEDS ORDERED: SEVE2.4P3 PO (17:10)
[2024-08-31] MEDS ORDERED: ERYT1OIN7 OP (17:10)
[2024-08-31 17:51] LABS: HEPATITIS B CORE AB TOTAL Non-Reactive (Nonreactive); HEPATITIS B SURFACE ANTIBODY Positive (Reactive); HEPATITIS B SURFACE ANTIGEN Non-Reactive (Nonreactive); HEPATITIS C ANTIBODY Non-Reactive (Nonreactive)
[2024-08-31] MEDS ORDERED: AZITHROMYCIN 500MG+NS 250ML 250 ML IV SCH (18:30)
[2024-08-31] MEDS ORDERED: cefTRIAXone 1G VIAL IV SCH (18:30)
[2024-08-31] MEDS: cefTRIAXone 1G VIAL IV SCH (18:38)
[2024-08-31] MEDS: AZITHROMYCIN 500MG+NS 250ML 250 ML IV SCH (18:38)
[2024-08-31] MEDS ORDERED: DEXTROSE 50%-WATER 50 ML DISP.SYRIN IV PRN (19:00)
[2024-08-31] MEDS ORDERED: guaiFENesin-DM 200/20MG 10ML PO PRN (19:00)
[2024-08-31] MEDS ORDERED: GLUCAGON 1MG KIT 1 MG ML IM PRN (19:00)
[2024-08-31] MEDS ORDERED: NITROGLYCERIN 0.4 MG SL TAB SL PRN (19:00)
[2024-08-31] MEDS ORDERED: LACTULOSE 20 GM/30 ML UDCUP PO PRN (19:00)
[2024-08-31] MEDS: INSULIN humuLIN R 100 UNIT/ML 3ML SQ SCH (19:49)
[2024-08-31] MEDS: acetaMINOPHEN 325 MG TAB PO PRN (23:28)
[2024-08-31] MEDS: MAG/ALUM/SIMETH 30 ML UDCUP PO PRN (23:28)
[2024-08-31] MEDS: IpraTROPium/alBUTERol SULFATE 3 ML SOLUTION IH SCH (23:55)
[2024-09-01] VITALS (14 sets, daily range): BP systolic 129–165; BP diastolic 42–89; PULSE 72–109; RESP 16–20; TEMP 97.7–98.5; O2SAT 95–99
[2024-09-01 05:39] LABS: HEMATOCRIT 25.1 % (36-48); MEAN CORPUSCULAR HEMOGLOBIN 30.5 pg (27.0-33.0); MEAN CORPUSCULAR HGB CONC 32.7 g/dL (32.0-36.0); MEAN CORPUSCULAR VOLUME 93.3 fL (79-99); RED BLOOD CELL COUNT(AUTO) 2.69 MIL/uL (4.00-5.50); RED CELL DISTRIBUTION WIDTH 16.6 % (11.0-15.5); WHITE BLOOD COUNT (AUTO) 6.6 K/uL (4.8-10.8)
[2024-09-01 06:05] LABS: ALBUMIN 3.3 g/dL (3.5-5.0); CREATININE 4.6 mg/dL (0.5-1.0); POTASSIUM 4.7 mmol/L (3.5-5.1)
[2024-09-01 07:24] LABS: ABG BASE EXCESS 3.2 mmol/L (-2.0-3.0); ABG HCO3 27.6 mmol/L (21.0-28.0); ABG OXYGEN SATURATION 92.9 % (94.0-98.0); ABG PCO2 41 mmHg (32-45); ABG PH 7.444 (7.350-7.450); PO2, ARTERIAL BG 62.8 mmHg (83.0-108.0); VENT MODE, BG RA (ROOM AIR)
[2024-09-01] MEDS: FAMOTIDINE 20MG TAB PO SCH (18:25)
[2024-09-01] MEDS: sevELAMer HCL 800 MG TABLET PO SCH (21:04)
[2024-09-01] MEDS: atorVAStatin 20 MG TABLET PO SCH (21:04)
[2024-09-02] VITALS (24 sets, daily range): BP systolic 96–165; BP diastolic 39–71; PULSE 69–97; RESP 14–20; TEMP 97.7–99.9; O2SAT 97–98
[2024-09-02] MEDS: PANTOPrazole 40 MG TAB DR PO SCH (06:42)
[2024-09-02] MEDS: VITAMIN B COMPLEX 1 CAPSULE PO SCH (08:20)
[2024-09-02] MEDS: amLODIPine 5 MG TAB PO SCH (08:20)
[2024-09-02] MEDS: ISOSORBIDE MONO 30MG SR TAB PO SCH (08:21)
[2024-09-02] MEDS: EXEMESTANE 25 MG PO SCH (08:21)
== END 2024-09-02 22:23 | disposition home or self-care (01) | DRG 193 ==
LOC: EDH 16:42 → OBSVTOIN 18:34 → 4BH 18:34 → EDH 22:51
PROVIDERS: ADMIT Internal Medicine; ATTEND Internal Medicine
PROC: 5A1D70Z Performance of Urinary Filtration, Intermittent, Less than 6 Hours Per Day (ICD-10-PCS; principal; 2024-08-31)
PROC: 5A1D70Z Performance of Urinary Filtration, Intermittent, Less than 6 Hours Per Day (ICD-10-PCS; 2024-09-02)
DX: J18.9 Pneumonia, unspecified organism (principal); I50.33 Acute on chronic diastolic (congestive) heart failure; J96.01 Acute respiratory failure with hypoxia; N18.6 End stage renal disease; E87.1 Hypo-osmolality and hyponatremia; I13.2 Hypertensive heart and chronic kidney disease with heart failure and with stage 5 chronic kidney disease, or end stage renal disease; E87.6 Hypokalemia; E11.22 Type 2 diabetes mellitus with diabetic chronic kidney disease; D64.9 Anemia, unspecified; E78.00 Pure hypercholesterolemia, unspecified; E11.65 Type 2 diabetes mellitus with hyperglycemia; Z99.2 Dependence on renal dialysis; Z88.8 Allergy status to other drugs, medicaments and biological substances; Z85.3 Personal history of malignant neoplasm of breast; Z90.5 Acquired absence of kidney; Z90.710 Acquired absence of both cervix and uterus
CPT/HCPCS: 36415; 36600; 71045; 80048; 80053; 80069; 82803; 82948; 84484; 85025; 85027; 86704; 86706; 86803; 87040; 87340; 87426; 87804; 90935; 93005; 94640; 94664; 96365; G0378; J0456; J0696; J1815; A4600

== ENCOUNTER 2024-10-06 12:10 | Observation (INO) | payer OTHER ==
[~2024-10-06] VITALS: Ht 147.3 cm; Wt 54.0 kg
[~2024-10-06 12:10] MED LIST changes: -ALEN70TA80 PO; -APIX2.5T PO; -ASPI-1005 PO; -CINA30 PO; +ERYT1OIN7 OP; -FE F1CAP33 PO; -SEVE0.8P3 PO; +SEVE2.4P3 PO
--- NOTE | 2024-10-06 12:19 | EKG ---
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 : 1935 Requested By: GUILLERMO SCANLON Order Number: [id number] Reading MD: Angeli Phan Measurements Intervals [place] Rate: 83 P: 44 IN: 224 QRS: -49 QRSD: 116 T: 96 QT: 394 QTc: 463 Interpretive Statements Sinus rhythm Prolonged IN interval Nonspecific IVCD with LAD Left ventricular hypertrophy Probable inferior infarct, acute Anteroseptal infarct, possibly acute Compared to ECG 08/30/2024 16:57:56 Early repolarization no longer present Myocardial infarct finding still present Electronically Signed On 10-07-2024 05:14:38 BIN PILER by Angeli Phan Please click the below link to view image of tracing.
--- NOTE | 2024-10-06 12:40 | HMCIMG ---
CHEST 1VW REASON: chest pain COMPARISON: 08/30/2024 FINDINGS: Single view of the chest was obtained. Lungs are clear. Heart size is normal. There is no pulmonary vascular congestion. Mediastinum and bony thorax appear unremarkable. IMPRESSION: 1. Normal single view chest x-ray.
--- NOTE | 2024-10-06 12:56 | ERN ---
General Chief Complaint: Chest Pain Stated Complaint: CP Time Seen by MD: 12:12 History of Present Illness Initial Comments 89-year-old female with history of ESRD on dialysis M/W/F presents to the ED for evaluation chest pain onset 1 day ago. Patient reports shortness a breath, but denies any other associated symptoms at this time. Patient went to dialysis yesterday but did not complete treatment and states that she bled a lot from her dialysis site. Allergies: Coded Allergies: propoxyphene (Verified Allergy, Unknown, 11/30/14) Home Meds Reported Medications Erythromycin Base (Erythromycin) 5 Mg/Gram (0.5 %) Oint...g., 1 APPL OP BID, GM 0 Refills APPLY 1/4 INCH IN BOTH EYES TWICE DAILY 08/31/24 Sevelamer Carbonate (Sevelamer Carbonate) 2.4 Gram Powd.pack, 2.4 GM PO TID 08/31/24 Isosorbide Mononitrate (Isosorbide Mononitrate ER) 30 Mg Tab.er.24h, 30 MG PO DAILY, TAB 12/10/23 Exemestane (Exemestane) 25 Mg Tablet, 25 MG PO DAILY, TAB 04/24/23 Atorvastatin Calcium (Atorvastatin Calcium) 20 Mg Tablet, 20 MG PO DAILY, TAB 08/30/22 Omeprazole (Omeprazole) 20 Mg Capsule.dr, 20 MG PO DAILY, CAP 08/30/22 Amlodipine Besylate (Amlodipine Besylate) 10 Mg Tablet, 10 MG PO DAILY for 30 Days, #30 TAB 0 Refills 08/30/22 Vitamin B Complex (B Complex) 1 Cap Capsule, 1 CAP PO DAILY, CAP 08/30/22 Past Medical History Past Medical History: Diabetes-Type II, High Cholesterol, Hypertension, Kidney Stone Medical History Other: BREAST CA Past Surgical History: Hysterectomy, Other Surgical History Other: RIGHT ARM AV GRAFT, HIP , KNEE Social History Social History: Negative ROS Dictation Constitutional: Negative for fever,chills, and weight loss Eyes: Negative for injury, pain,redness, and discharge ENT: Negative for injury,pain or swelling Cardiovascular: Positive for chest pain, negative for palpitations, and edema Respiratory: Positive for shortness a breath, negative for cough, and wheezing, Abdomen/GI: Negative for abdominal pain, nausea, vomiting, diarrhea, and constipation Back: Negative for injury and pain : Negative for injury, bleeding and discharge MS/Extremity: Negative for injury and deformity Skin: Negative for rash, and discoloration Neuro: Negative for headache, weakness, numbness, tingling, and seizure Psych: Negative for suicide ideation, homicidal ideation, and hallucinations Physical Exam Physical Exam Dictation General: awake, alert, NAD Head/Face: Normocephalic, atraumatic Eyes: PERRL, EOMI, vision at baseline ENT: oral cavity clear, TMs clear, no signs of infection Neck: Trachea midline, supple, no nuchal rigidity Cardiovascular: RRR, normal S1/S2, No MRGs, no JVD Respiratory: CTAB, no respiratory distress, No rales or wheezes Abdomen: Soft, non-tender, non-distended, normal bowel sounds, no guarding or rebound. Skin: Warm, dry, normal turgor, no rash MS/Extremity: Pulses equal, no cyanosis, neurovascular intact, FROM, RAVA Neuro: COAx4, GCS 15, strength 5/5, CN 2-12 intact, normal cerebellar exam, no rmal gait, Psych: Normal behavior, mood, and affect normal Results Laboratory and Microbiology Lab and Micro Result Laboratory Tests Test 10/06/24 12:59 10/06/24 15:59 White Blood Count 5.6 K/uL (4.8-10.8) Red Blood Count 3.53 MIL/uL (4.00-5.50) L Hemoglobin 10.5 g/dL (12.0-16.0) L Hematocrit 32.7 % (36-48) L Mean Corpuscular Volume 92.6 fL (79-99) Mean Corpuscular Hemoglobin 29.7 pg (27.0-33.0) Mean Corpuscular Hemoglobin Concent 32.1 g/dL (32.0-36.0) Red Cell Distribution Width 17.0 % (11.0-15.5) H Platelet Count 236 K/uL (130-400) Mean Platelet Volume 9.0 fL (7.5-10.5) Immature Granulocyte % (Auto) 0.7 % (0-1) Neutrophils (%) (Auto) 74.9 % (40.0-77.0) Lymphocytes (%) (Auto) 16.2 % (21.0-51.0) L Monocytes (%) (Auto) 5.0 % (3.0-13.0) Eosinophils (%) (Auto) 2.5 % (0.0-8.0) Basophils (%) (Auto) 0.7 % (0.0-5.0) Neutrophils # (Auto) 4.2 K/uL (1.8-7.7) Lymphocytes # (Auto) 0.9 K/uL (1.0-4.8) L Monocytes # (Auto) 0.3 K/uL (0.1-1.0) Eosinophils # (Auto) 0.14 K/uL (0.00-0.70) Basophils # (Auto) 0.04 K/uL (0.00-0.20) Absolute Immature Granulocyte (auto 0.04 K/uL (0-1) Nucleated Red Blood Cells 0.0 % (0.0-0.19) Prothrombin Time 11.2 SEC (9.6-11.6) Prothromb Time International Ratio 1.04 (0.85-1.15) Activated Partial Thromboplast Time 29.0 SEC (26.3-35.5) Sodium Level 137 mmol/L (136-145) Potassium Level 4.3 mmol/L (3.5-5.1) Chloride Level 95 mmol/L (101-111) L Carbon Dioxide Level 31 mmol/L (21-32) Blood Urea Nitrogen 26 mg/dL (7-18) H Creatinine 4.7 mg/dL (0.5-1.0) H Glomerular Filtration Rate Calc 8 mL/min (>90) Random Glucose 177 mg/dL (70-105) H Total Calcium 10.5 mg/dL (8.5-10.1) H Magnesium Level 2.50 mg/dL (1.80-2.40) H Total Creatine Kinase 66 U/L (21-232) # Troponin I High Sensitivity 42 ng/L (4-50) 38 ng/L (4-50) B-Type Natriuretic Peptide 450 pg/mL (0-100) H Labs Reviewed?: Yes EKG/XRAY/US/CT/MRI EKG Comment EKG 10/06/2024 time 1:37 p.m. ventricular rate 82, sinus rhythm, multiple premature complexes, borderline prolonged DC interval, nonspecific IVCD with LAD DC 216, QRS D 118. No STEMI EKG 08/30/2024 time 4:57 p.m. ventricular rate 84, sinus rhythm, prolonged DC interval, nonspecific IVCD with LAD, LVH with secondary repolarization abnormality. No STEMI X-RAY Comment Chest x-ray independently visualized by me REASON: chest pain ORDERING PHYSICIAN: GUILLERMO SCANLON MD PROCEDURE: CXR1VW - CHEST 1VW CHEST 1VW REASON: chest pain COMPARISON: 08/30/2024 FINDINGS: Single view of the chest was obtained. Lungs are clear. Heart size is normal. There is no pulmonary vascular congestion. Mediastinum and bony thorax appear unremarkable. IMPRESSION: 1. Normal single view chest x-ray. DICTATED BY: MARTY CHATMAN MD DATE: 10/06/24 1238 MDM MDM: Differential diagnosis: Chest pain, SOB, ESRD on hemodialysis 1820- [facility] accepts patient. Previous outside records reviewed: Old ER visits. Need for hospitalization: Patient does meet criteria for hospitalization. Need for emergency major/minor surgery: No Patient's prior external medical records from other ER visits were reviewed by me as indicated. Prior testing and results from previous visits were reviewed. Prior tests were taken into account with medical decision making and resource utilization, independent historian/historians were used to obtain complete medical history. I independently interpreted the test that were performed, results were reviewed by me and considered findings on radiology if ordered. Medical management and examination interpretation discussions were had by me with other qualified healthcare professionals as indicated for the patient's care. ED Course Orders Procedure Category Date Status Time Cbc With Differential LAB 10/06/24 Complete 12:12 Prothrombin Time With LAB 10/06/24 Complete INR 12:12 B-Type Natriuretic LAB 10/06/24 Complete Peptide 12:12 Chest 1vw RAD 10/06/24 Resulted 12:12 12 Lead Ekg Tracing- EKG 10/06/24 Complete Technical 12:12 Magnesium LAB 10/06/24 Complete 12:12 Creatine Kinase, Total LAB 10/06/24 Complete 12:12 Troponin I High LAB 10/06/24 Complete Sensitivity 12:12 Urinalysis Profile LAB 10/06/24 Logged 12:12 Partial LAB 10/06/24 Complete Thromboplastin Time 12:12 Basic Metabolic Panel LAB 10/06/24 Complete 12:12 Troponin I High LAB 10/06/24 Complete Sensitivity 15:39 Ipratropium/Albuterol PHA 11/12/24 Complete Neb (Duoneb) 16:00 Current Medications Medications (Trade) Dose Ordered Sig/[place] Route PRN Reason Start Time Stop Time Status Last Admin Dose Admin Albuterol (DUOneb) 2 udvial ONCE ONCE IH 10/06/24 16:00 10/06/24 16:01 DC 10/06/24 16:46 Vital Signs Date Time Temp Pulse Resp B/P (MAP) Pulse Ox O2 Delivery O2 Flow Rate FiO2 10/06/24 16:30 60 18 10/06/24 12:11 98.8 60 20 149/57 98 Room Air 0 HEART Score Response (Comments) Value History: Low suspicion (0) 0 EKG: Repolarization changes 1 Age: > 65yrs (+2) 2 Risk Factors: 1-2 risk factors (+1) 1 Initial Troponin: Normal limit (0) 0 HEART Score Risk: Mod Risk for MACE (4-6) Total 4 Critical Care Note Critical Time: other (Total critical care time was 33 minutes. Excluding time for procedures. Management of critically ill patient with concern for acute decompensation. Management included interpretation of laboratory values and imaging, hemodynamics, time for consultation with consultants and admitting physician.) DX & DISP Disposition: Inpatient Decision to Admit Date: Oct 06, 2024 Decision to Admit Time: 18:21 Departure Impression: Primary Impression: Chest pain Additional Impressions: Shortness of breath, ESRD on dialysis Condition: Stable Referrals: SULEIMAN ROBERSON MD (PCP) I have reviewed, & agreed with my scribe's, documentation. (Entered by Trisha Peoples, acting as a scribe for Dr. Scanlon) I personally scribed for GUILLERMO SCANLON MD (MICHAEL) on 10/06/24 at 12:55. Electronically submitted by Trisha Peoples (Kiveda). I personally scribed for GUILLERMO SCANLON MD (MICHAEL) on 10/06/24 at 13:32. Electronically submitted by Trisha Peoples (Kiveda). I personally scribed for GUILLERMO SCANLON MD (MICHAEL) on 10/06/24 at 13:43. Electronically submitted by Trisha Peoples (Kiveda). I personally scribed for GUILLERMO SCANLON MD (MICHAEL) on 10/06/24 at 14:23. El ectronically submitted by Trisha Peoples ([email or web address]). I personally scribed for GUILLERMO SCANLON MD (MICHAEL) on 10/06/24 at 15:41. Electronically submitted by Trisha Peoples ([email or web address]). I personally scribed for GUILLERMO SCANLON MD (MICHAEL) on 10/06/24 at 18:22. Electronically submitted by Trisha Peoples ([email or web address]). I personally scribed for GUILLERMO SCANLON MD (MICHAEL) on 10/06/24 at 18:26. Electronically submitted by Trisha Peoples ([email or web address]). GUILLERMO SCANLON MD Oct 06, 2024 12:55
[2024-10-06 13:23] LABS: CREATININE 4.7 mg/dL (0.5-1.0); POTASSIUM 4.3 mmol/L (3.5-5.1)
[2024-10-06 13:26] LABS: BASOPHILS # (AUTO) 0.04 K/uL (0.00-0.20); BASOPHILS % (AUTO) 0.7 % (0.0-5.0); EOSINOPHILS # (AUTO) 0.14 K/uL (0.00-0.70); EOSINOPHILS % (AUTO) 2.5 % (0.0-8.0); HEMATOCRIT 32.7 % (36-48); IMMATURE GRANULOCYTE ABSOLUTE 0.04 K/uL (0-1); LYMPHOCYTES # (AUTO) 0.9 K/uL (1.0-4.8); LYMPHOCYTES % (AUTO) 16.2 % (21.0-51.0); MEAN CORPUSCULAR HEMOGLOBIN 29.7 pg (27.0-33.0); MEAN CORPUSCULAR HGB CONC 32.1 g/dL (32.0-36.0); MEAN CORPUSCULAR VOLUME 92.6 fL (79-99); MONOCYTES # (AUTO) 0.3 K/uL (0.1-1.0); NEUTROPHILS # (AUTO) 4.2 K/uL (1.8-7.7); NEUTROPHILS % (AUTO) 74.9 % (40.0-77.0); PLATELET COUNT (AUTO) 236 K/uL (130-400); RED BLOOD CELL COUNT(AUTO) 3.53 MIL/uL (4.00-5.50); WHITE BLOOD COUNT (AUTO) 5.6 K/uL (4.8-10.8)
[2024-10-06 13:28] LABS: MAGNESIUM 2.5 mg/dL (1.80-2.40)
[2024-10-06 13:41] LABS: INR 1.04 (0.85-1.15); PROTHROMBIN TIME 11.2 SEC (9.6-11.6)
[2024-10-06 14:03] LABS: B-TYPE NATRIURETIC PEPTIDE 450 pg/mL (0-100)
[2024-10-06 16:30] VITALS: PULSE 60; RESP 18
[2024-10-06] MEDS: IpraTROPium/alBUTERol SULFATE 3 ML SOLUTION IH ONE (16:46)
[2024-10-07] VITALS (20 sets, daily range): BP systolic 139–164; BP diastolic 33–60; PULSE 65–83; RESP 15–18; TEMP 98–99.3; O2SAT 96–99
[2024-10-07] MEDS ORDERED: hydrALAZine 20MG/ML VIAL IV PRN
[2024-10-07] MEDS ORDERED: LAbetaLOL 20MG SYG IV PRN
[2024-10-07] MEDS ORDERED: ondanSETRON 4MG INJ IVP PRN
[2024-10-07] MEDS ORDERED: HYDROcodone/APAP 5/325 1 TAB TABLET PO PRN
[2024-10-07] MEDS ORDERED: acetaMINOPHEN 650 MG SUPPOSITORY RC PRN
[2024-10-07] MEDS ORDERED: acetaMINOPHEN 325 MG TAB PO PRN
--- NOTE | 2024-10-07 00:08 | HP ---
[facility] HISTORY & PHYSICAL Date Patient Seen: Oct 07, 2024 Time of Visit: 00:03 Supervising Physician: Dr. Julia Loja Primary Care Physician: Dr. Ellison Outpatient Specialists: Dr. Babcock renal Inpatient Consults: [ ] PROBLEM LIST: Acute hypoxic respiratory failure, POA ESRD on HD via right upper arm AV fistula, Saturday, POA Hypertension, POA DM type 2, POA Hyperlipidemia, POA Plan: Admit to medical-surgical floor VS per unit protocol DuoNeb q.6 Keep head of bed above 30 Incentive spirometry Keep SBP less than 160 p.r.n. hydralazine and labetalol Bilateral SCDs Limit sedation Keep serum glucose less than 150 ISS and fingerstick per unit protocol Monitor temperature curve Treat fever aggressively CBC, CMP, magnesium level daily HPI: 89-year-old female with past medical history of ESRD on HD via right upper arm AV fistula, hypertension, DM type 2, hyperlipidemia who presented to ED via private vehicle with complaint of worsening of shortness of breaths and found to have acute hypoxic respiratory failure. Patient was seen and examined in ED with no relatives present at bedside. According to her when she got home from hemodialysis patient experience worsening shortness of breaths. She then presented to ED for further medical evaluation. In ED chest x-ray was done and showed no acute pulmonary infiltrates, CBC unrevealing for any acute infection however there is chronic anemia. Her CMP is consistent with chronic kidney disease with normal electrolytes level. In ED patient was placed on oxygen, and was given neb treatment with significant improvement in her respiratory status. At present patient is currently hemodynamically stable, still with mild tachypnea, on room air with appropriate oxygen saturation. Patient denies any cough, fever, phlegm, chest pain, abdominal pain, or flu-like symptoms. Patient is vaccinated against COVID virus and her flu shot is up-to-date. Patient denies any smoking, alcohol intake, illicit drug use. Patient lives with family. PAST MEDICAL HX: see above PAST SURGICAL HX: noncontributory SOCIAL HISTORY: No tobacco, ETOH, or illicit drug use Coded Allergies: propoxyphene (Verified Allergy, Unknown, 11/30/14) REVIEW OF SYSTEMS: 12 point ROS reviewed with patient. Pertinent positives mentioned above. Otherwise negative. PHYSICAL EXAM: GENERAL: alert, weak, awake oriented x 3 HEENT: EOMI, Sclera non icteric, moist mucosa NECK: Supple, no JVD, trachea midline LUNGS: Clear breath sounds bilaterally. No wheezes HEART: Regular rate and rhythm. Normal S1 and S2, without murmurs ABD: Abdomen soft, nontender. Bowel sounds present EXT: No clubbing cyanosis or edema; right AV fistula NEURO: Alert and oriented to person, follows commands Vital Signs (last 8hr) Date Time Temp Pulse Resp B/P (MAP) Pulse Ox O2 Delivery O2 Flow Rate FiO2 10/06/24 20:06 93 18 156/53 95 Room Air* 0 21 10/06/24 16:30 60 18 LABS: Hematology Labs: Test 10/06/24 12:59 Range/Units White Blood Count 5.6 4.8-10.8 K/uL Red Blood Count 3.53 L 4.00-5.50 MIL/uL Hemoglobin 10.5 L 12.0-16.0 g/dL Hematocrit 32.7 L 36-48 % Mean Corpuscular Volume 92.6 79-99 fL Mean Corpuscular Hemoglobin 29.7 27.0-33.0 pg Mean Corpuscular Hemoglobin Concent 32.1 32.0-36.0 g/dL Red Cell Distribution Width 17.0 H 11.0-15.5 % Platelet Count 236 130-400 K/uL Mean Platelet Volume 9.0 7.5-10.5 fL Immature Granulocyte % (Auto) 0.7 0-1 % Neutrophils (%) (Auto) 74.9 40.0-77.0 % Lymphocytes (%) (Auto) 16.2 L 21.0-51.0 % Monocytes (%) (Auto) 5.0 3.0-13.0 % Eosinophils (%) (Auto) 2.5 0.0-8.0 % Basophils (%) (Auto) 0.7 0.0-5.0 % Neutrophils # (Auto) 4.2 1.8-7.7 K/uL Lymphocytes # (Auto) 0.9 L 1.0-4.8 K/uL Monocytes # (Auto) 0.3 0.1-1.0 K/uL Eosinophils # (Auto) 0.14 0.00-0.70 K/uL Basophils # (Auto) 0.04 0.00-0.20 K/uL Absolute Immature Granulocyte (auto 0.04 0-1 K/uL Nucleated Red Blood Cells 0.0 0.0-0.19 % Chemistry Labs: Test 10/06/24 15:59 10/06/24 12:59 Range/Units Troponin I High Sensitivity 38 4-50 ng/L Sodium Level 137 136-145 mmol/L Potassium Level 4.3 3.5-5.1 mmol/L Chloride Level 95 L 101-111 mmol/L Carbon Dioxide Level 31 21-32 mmol/L Blood Urea Nitrogen 26 H 7-18 mg/dL Creatinine 4.7 H 0.5-1.0 mg/dL Glomerular Filtration Rate Calc 8 >90 mL/min Random Glucose 177 H 70-105 mg/dL Total Calcium 10.5 H 8.5-10.1 mg/dL Magnesium Level 2.50 H 1.80-2.40 mg/dL Total Creatine Kinase 66 # 21-232 U/L B-Type Natriuretic Peptide 450 H 0-100 pg/mL Coagulation Labs: Test 10/06/24 12:59 Range/Units Prothrombin Time 11.2 9.6-11.6 SEC Prothromb Time International Ratio 1.04 0.85-1.15 Activated Partial Thromboplast Time 29.0 26.3-35.5 SEC DIAGNOSTICS / RADIOLOGY RESULTS: CHEST 1VW REASON: chest pain COMPARISON: 08/30/2024 FINDINGS: Single view of the chest was obtained. Lungs are clear. Heart size is normal. There is no pulmonary vascular congestion. Mediastinum and bony thorax appear unremarkable. IMPRESSION: 1. Normal single view chest x-ray. [ ] PLAN NEURO: Minimize central acting medications as possible. Maintain fall precautions, adequate lighting during the day PULMONARY: Supplemental 02 as needed. Maintain aspiration precautions at all times CARDIOVASCULAR: Follow hemodynamics. Vital signs per facility protocol GI & NUTRITION: Continue with nutritional support. Continue stool softeners and laxatives as needed. KIDNEYS & ELECTROLYTES: Strict monitoring of intake, output and overall fluid balance. Avoid nephrotoxic medications to the extent possible. Medications to be dosed according to renal function. Monitor electrolytes and replace as needed ENDOCRINE: Maintain blood glucose between 100-180 at all times. Hypoglycemia protocol in place INFECTIOUS DISEASE: Trend temperature, WBC and procalcitonin level Follow cultures, deescalate antibiotics as soon as possible. Panculture if new onset fever ONCOLOGY/HEMATOLOGY/COAGULATION: Monitor for s/s of bleeding Monitor hemoglobin, coagulation studies as needed SKIN: Pressure ulcer prevention per facility protocol Specialty mattress ORTHO/REHAB: Continue PT/OT Prophylaxis: Continue GI and DVT prophylaxis Code Status: Full Resuscitation Disposition: TBD Other: Total patient care time exceeds 35 minutes excluding all procedures. Supervising physician: SOBEIDA Chan AGACNP Oct 07, 2024 00:08
[2024-10-07] MEDS: IpraTROPium 0.5 MG/2.5 ML INH IH SCH (00:18)
[2024-10-07] MEDS: INSULIN humuLIN R 100 UNIT/ML 3ML SQ SCH (07:30)
[2024-10-07] MEDS: ASCORBIC ACID 500 MG TAB PO SCH (08:23)
[2024-10-07] MEDS: PANTOPrazole 40 MG TAB DR PO SCH (08:24)
[2024-10-07] MEDS: 0.9%NACL 1000ML 1,000 ML IV SCH (09:22)
[2024-10-07] MEDS ORDERED: ASPI-1005 PO (15:13)
[2024-10-07] MEDS ORDERED: NITR0.4T50 SL (15:13)
[2024-10-07] MEDS ORDERED: SEVE0.8P PO (15:13)
[2024-10-07 16:23] LABS: HEPATITIS B SURFACE ANTIGEN Non-Reactive (Nonreactive)
--- NOTE | 2024-10-07 17:25 | DS ---
[facility] DISCHARGE SUMMARY Date Patient Seen: Oct 07, 2024 Time of Visit: 17:25 Supervising Physician: [Dr. Mcpherson] Primary Care Physician: Dr. Ellison Outpatient Specialists: Dr. Babcock renal Inpatient Consults: [ ] PROBLEM LIST: Acute respiratory insufficiency, POA ESRD on HD via right upper arm AV fistula, Saturday, POA Hypertension, POA DM type 2, POA Hyperlipidemia, POA Plan: Continue outpatient hemodialysis as scheduled HOSPITAL COURSE: HPI (per admitting provider) 89-year-old female with past medical history of ESRD on HD via right upper arm AV fistula, hypertension, DM type 2, hyperlipidemia who presented to ED via private vehicle with complaint of worsening of shortness of breaths and found to have acute hypoxic respiratory failure. Patient was seen and examined in ED with no relatives present at bedside. According to her when she got home from hemodialysis patient exper ience worsening shortness of breaths. She then presented to ED for further medical evaluation. In ED chest x-ray was done and showed no acute pulmonary infiltrates, CBC unrevealing for any acute infection however there is chronic anemia. Her CMP is consistent with chronic kidney disease with normal electrolytes level. In ED patient was placed on oxygen, and was given neb treatment with significant improvement in her respiratory status. At present patient is currently hemodynamically stable, still with mild tachypnea, on room air with appropriate oxygen saturation. Patient denies any cough, fever, phlegm, chest pain, abdominal pain, or flu-like symptoms. The patient was given urgent dialysis at bedside with significant improvement in her respiratory status. Her labs, blood pressure and vitals were within normal limits and she remained saturating well without supplemental oxygen. She was discharged in stable condition. Daughter at bedside was updated on clinical status of patient. They both agreed for patient to return home and continue outpatient hemodialysis. Findings discussed with family. No s/s of infection, no indication for antibiotics. ACTIVE PROBLEM LIST FOR THE HOSPITALIZATION: Acute respiratory insufficiency, POA, resolved post dialysis ESRD on HD via right upper arm AV fistula, Saturday, POA Hypertension, POA DM type 2, POA Hyperlipidemia, POA CHRONIC PROBLEMS: continue previous management per PCP unless otherwise indicated [facility]PENTER HELPER FINDINGS/RECOMMENDATIONS: [Continue dialysis outpatient] PROCEDURES: as mentioned above DISCHARGE MEDICATIONS: Continue all medications as previously taken. Pt hemodynamically stable and afebrile at time of discharge. PCP notified of patients admission, hospital course and discharge. Continued Medications: Amlodipine Besylate (Amlodipine Besylate) 10 Mg Tablet 10 MG PO DAILY for 30 Days, #30 TAB 0 Refills Aspirin (Aspirin 81MG Chew Tab) 81 Mg Tab.chew 81 MG PO DAILY, TAB.CHEW Atorvastatin Calcium (Atorvastatin Calcium) 20 Mg Tablet 20 MG PO DAILY, TAB Erythromycin Base (Erythromycin) 5 Mg/Gram (0.5 %) Oint...g. 1 APPL OP BID, GM 0 Refills APPLY 1/4 INCH IN BOTH EYES TWICE DAILY Exemestane (Exemestane) 25 Mg Tablet 25 MG PO DAILY, TAB Isosorbide Mononitrate (Isosorbide Mononitrate ER) 30 Mg Tab.er.24h 30 MG PO DAILY, TAB Nitroglycerin (Nitroglycerin) 0.4 Mg Tab.subl 0.4 MG SL AD PRN for CHEST PAIN, TAB.SL Omeprazole (Omeprazole) 20 Mg Capsule.dr 20 MG PO DAILY, CAP Sevelamer Carbonate (Sevelamer Carbonate) 2.4 Gram Powd.pack 2.4 GM PO TID Sevelamer Carbonate (Renvela) 0.8 Gram Powd.pack 0.8 GM PO TID Vitamin B Complex (B Complex) 1 Cap Capsule 1 CAP PO DAILY, CAP PHYSICAL EXAM: GENERAL: alert, weak, awake oriented x 3 HEENT: EOMI, Sclera non icteric, moist mucosa NECK: Supple, no JVD, trachea midline LUNGS: Clear breath sounds bilaterally. No wheezes HEART: Regular rate and rhythm. Normal S1 and S2, without murmurs ABD: Abdomen soft, nontender. Bowel sounds present EXT: No clubbing cyanosis or edema; right AV fistula NEURO: Alert and oriented to person, follows commands FOLLOW-UP: Follow-up with PCP in 2-3 days for reevaluation. Continue dialysis outpatient as scheduled. RECOMMENDATIONS: See Discharge Instructions This case was seen and discussed with my supervising physician. More than 30 min utes spent on discharge process, including evaluation of the patient, discussion with nursing staff, medication reconciliation and follow-up appointments JAMESON BUTLER Oct 07, 2024 17:25
== END 2024-10-07 19:55 | disposition home or self-care (01) ==
LOC: EDH 12:10 → EDHIP 10-07
PROVIDERS: ADMIT Internal Medicine; ATTEND Internal Medicine
DX: I12.0 Hypertensive chronic kidney disease with stage 5 chronic kidney disease or end stage renal disease (principal); E11.22 Type 2 diabetes mellitus with diabetic chronic kidney disease; N18.6 End stage renal disease; E78.00 Pure hypercholesterolemia, unspecified; R06.89 Other abnormalities of breathing; R07.89 Other chest pain; Z99.2 Dependence on renal dialysis; Z90.710 Acquired absence of both cervix and uterus; Z85.3 Personal history of malignant neoplasm of breast; Z79.899 Other long term (current) drug therapy
CPT/HCPCS: 82550; 83735; 84484 ×2; 80048; 83880; 85025; 85610; 85730; 71045; 93005; 96372; 82948 ×2; 86706; 87340; 86704; 36415 ×2; 99291; 94664; 90935; G0378 ×17; J1815; 94640; 96360; 96361; G0257

== ENCOUNTER 2025-01-29 10:10 | Emergency (ER) | payer OTHER ==
[~2025-01-29] VITALS: Ht 152.4 cm; Wt 50.8 kg
[~2025-01-29 10:10] MED LIST changes: +ASPI-1005 PO; +NITR0.4T50 SL; +SEVE0.8P PO
[2025-01-29] MEDS ORDERED: SULF1TAB42 PO (10:39)
--- NOTE | 2025-01-29 10:41 | ERN ---
General Chief Complaint: Upper Extremity Pain/Injury Stated Complaint: LEFT ARM, LEFT KNEE PAIN Time Seen by MD: 10:12 Time Seen by Midlevel: 10:12 Source: patient History of Present Illness Initial Comments Patient is an 89-year-old female with a past medical history of end-stage renal disease on hemodialysis presenting to the emergency department with a cystic structure to her left forearm that was initially noticed a proximally two weeks ago. The stricture has grown in size which concerned patient. She was seen by her primary care doctor who referred her to Dermatology but has been unable to see him. They decided to report to the ER for further evaluation. Patient denies any fever, chills, or any other symptoms Allergies: Coded Allergies: propoxyphene (Verified Allergy, Unknown, 11/30/14) Home Meds Reported Medications Nitroglycerin (Nitroglycerin) 0.4 Mg Tab.subl, 0.4 MG SL AD PRN for CHEST PAIN, TAB.SL 10/07/24 Sevelamer Carbonate (Renvela) 0.8 Gram Powd.pack, 0.8 GM PO TID 10/07/24 Aspirin (ASPIRIN 81MG CHEW TAB) 81 Mg Tab.chew, 81 MG PO DAILY, TAB.CHEW 10/07/24 Erythromycin Base (Erythromycin) 5 Mg/Gram (0.5 %) Oint...g., 1 APPL OP BID, GM 0 Refills APPLY 1/4 INCH IN BOTH EYES TWICE DAILY 08/31/24 Sevelamer Carbonate (Sevelamer Carbonate) 2.4 Gram Powd.pack, 2.4 GM PO TID 08/31/24 Isosorbide Mononitrate (Isosorbide Mononitrate ER) 30 Mg Tab.er.24h, 30 MG PO DAILY, TAB 12/10/23 Exemestane (Exemestane) 25 Mg Tablet, 25 MG PO DAILY, TAB 04/24/23 Atorvastatin Calcium (Atorvastatin Calcium) 20 Mg Tablet, 20 MG PO DAILY, TAB 08/30/22 Omeprazole (Omeprazole) 20 Mg Capsule.dr, 20 MG PO DAILY, CAP 08/30/22 Amlodipine Besylate (Amlodipine Besylate) 10 Mg Tablet, 10 MG PO DAILY for 30 Days, #30 TAB 0 Refills 08/30/22 Vitamin B Complex (B Complex) 1 Cap Capsule, 1 CAP PO DAILY, CAP 10/6/22 Past Medical History Past Medical History: Cancer, Diabetes-Type II, Heart Disease Medical History Other: BREAST CA Past Surgical History: Hysterectomy, Other Surgical History Other: LEFT KNEE, RT HIP, Social History Social History: Negative ROS Dictation CONSTITUTIONAL: Negative except for HPI HEAD/FACE: Negative except for HPI EENT: Negative except for HPI RESPIRATORY: Negative except for HPI GASTROINTESTINAL/ABDOMINAL: Negative except for HPI GENITOURINARY: Negative except for HPI MUSCULOSKELETAL: Negative except for HPI INTEGUMENTARY: Negative except for HPI NEUROLOGICAL/PSYCH: Negative except for HPI HEMATOLOGIC/LYMPHATIC: Negative except for HPI All Systems Negative, Except as noted above. 13 point review of systems assessed and all negative except for above. Physical Exam Physical Exam Dictation PHYSICAL EXAM: GENERAL: alert,, awake oriented x 3 HEENT: EOMI, Sclera non icteric, moist mucosa NECK: Supple, no JVD, trachea midline LUNGS: Clear breath sounds bilaterally. No wheezes HEART: Regular rate and rhythm. Normal S1 and S2, without murmurs ABD: Abdomen soft, nontender. Bowel sounds present EXT: No clubbing or cyanosis, NEURO: Alert and oriented to person, follows commands SKIN: 3 cm x 2 cm circular cystic structure to the left forearm, no surrounding erythema or induration MDM MDM: Patient is an 89-year-old female with a past medical history of end-stage renal disease on hemodialysis presenting to the emergency department with a cystic structure to her left forearm that was initially noticed a proximally two weeks ago. The stricture has grown in size which concerned patient. She was seen by her primary care doctor who referred her to Dermatology but has been unable to see him. They decided to report to the ER for further evaluation. Patient denies any fever, chills, or any other symptoms. On physical examination there is a 3 x 2 cm cystic structure to the left forearm which appears to be a lipoma. There was no surrounding erythema, induration, or drainable abscess at this time. I did offer incision and drainage but they decided to hold off until they see Dermatology. We will give a short course Bactrim to treat empirically. Patient will be following up with Dermatology outpatient Differential diagnosis: Lipoma, abscess, cellulitis There are no social concerns with this patient. Prescription drug management Prescriptions will include: Bactrim Medical management and examination interpretation discussions were had by me with other qualified healthcare professionals as indicated for the patient's care. ED Course Vital Signs Date Time Temp Pulse Resp B/P (MAP) Pulse Ox O2 Delivery O2 Flow Rate FiO2 01/29/25 10:14 98.8 85 18 145/52 99 Room Air 0 DX & DISP Disposition: Discharge Departure Impression: Primary Impression: Lipoma of left forearm Condition: Stable Scripts Sulfamethoxazole/Trimethoprim (Bactrim Ds Tablet) 800 Mg-160 Mg Tablet 1 TAB PO DAILY for 5 Days, #5 TAB 0 Refills Prov: PREMA ROBERSON 01/29/25 Referrals: SULEIMAN ROBERSON MD (PCP) WILLIAM ONTIVEROS MD Time of Disposition: 10:39 I have reviewed the case, and I agree with, Diagnosis and Plan I performed the substantive portion of the visit. I have reviewed and personally made and approve the management plan that is documented in the note by myself or the JEANNE. I acknowledge for responsibility for the patient's management plan. PREMA ROBERSON Jan 29, 2025 10:41
[2025-01-29 10:47] VITALS: BP 141/56; PULSE 80; RESP 18; TEMP 98.7; O2SAT 97
== END 2025-01-29 10:51 | disposition home or self-care (01) ==
LOC: EDH 10:10
DX: D17.22 Benign lipomatous neoplasm of skin and subcutaneous tissue of left arm (principal); E11.22 Type 2 diabetes mellitus with diabetic chronic kidney disease; N18.6 End stage renal disease; Z99.2 Dependence on renal dialysis; Z79.811 Long term (current) use of aromatase inhibitors; Z79.82 Long term (current) use of aspirin; Z79.899 Other long term (current) drug therapy; Z85.3 Personal history of malignant neoplasm of breast; Z90.710 Acquired absence of both cervix and uterus
CPT/HCPCS: 99283

== ENCOUNTER → 2025-02-23 | Outpatient (CLI) | payer OTHER ==
[~2025-02-23] MED LIST changes: +REGADENOSON 0.4 MG/5 ML PF SYG IVP ONE; +SULF1TAB42 PO
--- NOTE | 2025-02-23 18:36 | HMCSR ---
APPROVED REPORT TEST INDICATIONS Chest Pain The imaging protocol used to acquire images was Rest Tc-99m/stress Tc-99m 1 day Consent: The procedure was explained and understood by the patient. Informerd consent was witnessed Donnie Betancourt [facility] First, low dose rest was performed then high dose stress. RESTING DATA: The resting ekg shows: NSR Rest SPECT myocardial perfusion imaging was performed in supine position minutes following the intra venous injection of 10 mCi of Tc-99 Sestamibi. Time of rest injection: 929 PHARMACOLOGIC STRESS: Pharmacologic stress test was performed by injecting regadenoson 0.4 mg IV push followed by the intra venous injection of 28 mCi of Tc-99 Sestamibi. Time of stress injection: 1102 Date: 02/23/2025 Heart Rate at time of stress injection: 82 bpm. The images were gated to evaluate regional wall motion and calculate left ventricular ejection fracti on. STRESS DETAILS Reason for Termination: Infusion complete Stress Symptoms: Dyspnea Max HR Achieved: 100 bpm % of APMHR Achieved: 90 Max Blood Pressure: 156/56 mmHg Stress ECG: NSR, PVCs Study quality was good. Lung uptake was Normal. Artifact: No artifact IMPRESSION Normal pharmacologic nuclear stress test. Conclusion Normal perfusion. TID 1.09. LVEF 57%.
== END | disposition home or self-care (01) ==
LOC: SHCH 08:28
PROVIDERS: ATTEND Internal Medicine Cardiovascular Disease
DX: I25.10 Atherosclerotic heart disease of native coronary artery without angina pectoris (principal); R06.00 Dyspnea, unspecified; R07.9 Chest pain, unspecified
CPT/HCPCS: 78452; 93017; J2785; A9500 ×2

== ENCOUNTER → 2025-03-16 | Outpatient (CLI) | payer OTHER ==
[~2025-03-16] MED LIST changes: -REGADENOSON 0.4 MG/5 ML PF SYG IVP ONE
--- NOTE | 2025-03-16 22:45 | HMCSR ---
APPROVED REPORT EXAM: Two-dimensional and M-mode echocardiogram with Doppler and color Doppler. INDICATION ICD: Z51.11 Encounter for antineoplastic chemotherapy 2D Dimensions RVDd4.3 cmLVEF(%)47.2 (>50%)LA ESV INDEX (BP)55.63 mL/m2 IVSd0.8 (0.7-1.1cm)FS(%)24 % LVDd5.0 (3.8-5.6cm)LA (2D)3.5 (1.6-4.0cm) PWd0.7 (0.7-1.1cm)Ao Root(2D)2.5 (2.0-3.7cm) IVSs1.1 cmLVOT diam2.0 (1.8-2.4cm) LVDs3.8 (2.5-4.0cm)IVC diam1.7 cm PWs1.3 cm Deformation Strain Apical 4-14.2 % Apical 2-14.6 % Apical 3-14.1 % Global Strain-14.3 % M-Mode Dimensions EPSS1.2 cm LA (MM)4.8 (1.6-4.0cm) Ao Root(MM)2.5 (2.0-3.7cm) Aortic Valve AoV Vmax2.1 m/Ajay Peak GR18.2 mmHgLVOT Vmax0.9 m/s AoV VTI0.5 mAo Mean GR10.5 mmHgLVOT VTI0.20 m EDUARDO (VMAX)1.37 cm2Al P1/2T221 msAVA (VTI) 1.4 cm2 Mitral Valve MV E Yair001.4 cm/sDECEL Vstk706 msMR YCP823 cm2 MV A Onxg098.9 cm/sP 1/2 T45 ms E/A ratio1.1MVA (PHT)4.9 cm2 TDI E/E' Nsldcd22.2E/E' Esumtbz06.8 Medial E' Peak V4.56 cm/sLateral E' Peak V4.94 cm/s Pulmonary Valve PV Vmax1.3 m/sPV Mean GR4.3 mmHg PV Peak GR7.2 mmHg Tricuspid Valve TR Vmax3.0 m/sRAP (EST) 8 qiHdNECZ52.7 mmHg TR Peak GR36.7 mmHg Left Ventricle The left ventricle is normal size. There is global hypokinesis of the left ventricle. Moderate concen tric left ventricular hypertrophy. Left ventricle systolic function is mildly depressed, estimated LV EF 45 to 50%. Stage II, diastolic dysfunction. Right Ventricle The right ventricle is dilated. The right ventricular systolic function is normal. Atria The left atrium is severely dilated, 56 mL/m. The right atrium is severely dilated. Aortic Valve Aortic valve is trileaflet. The leaflets are moderately thickened and calcified. Severe aortic regurg itation, pressure half-time 221 ms. Mild aortic stenosis, peak velocity 2.1 m/s, mean gradient 11 mmH g. Mitral Valve Mild mitral annular calcification is noted. The leaflets are moderately thickened and calcified. Mode rate mitral regurgitation. Mild mitral stenosis, mean gradient 4.7 mmHg. Tricuspid Valve The tricuspid valve is normal in structure. Moderate tricuspid regurgitation. RVSP is 37 mmHg. Pulmonic Valve Pulmonic valve is not well visualized. Great Vessels The aortic root is normal in size. The IVC is normal in size and collapses <50% with inspiration. Pericardium There is no pericardial effusion. Other Information Quality : Adequate Conclusion The left atrium is severely dilated, 56 mL/m. The right atrium is severely dilated. The right ventricle is dilated. Moderate concentric left ventricular hypertrophy. There is global hypokinesis of the left ventricle. Left ventricle systolic function is mildly depressed, estimated LVEF 45 to 50%. Stage II, diastolic dysfunction. Mild aortic stenosis, peak velocity 2.1 m/s, mean gradient 11 mmHg. Mild mitral stenosis, mean gradient 4.7 mmHg. Severe aortic regurgitation, pressure half-time 221 ms. Moderate mitral regurgitation. Moderate tricuspid regurgitation. PASP is 45 mmHg. There is no pericardial effusion.
== END | disposition home or self-care (01) ==
LOC: RAH 14:37
PROVIDERS: ATTEND Internal Medicine Medical Oncology
DX: I08.3 Combined rheumatic disorders of mitral, aortic and tricuspid valves (principal); I11.9 Hypertensive heart disease without heart failure; Z51.11 Encounter for antineoplastic chemotherapy
CPT/HCPCS: 93306; 93356

== ENCOUNTER 2025-07-06 22:51 | Inpatient (IN) | payer OTHER ==
[~2025-07-06] VITALS: Ht 147.3 cm; Wt 54.0 kg
[~2025-07-06 22:51] MED LIST changes: +AZIT500T4 PO; +CEFP200T14 PO; -ERYT1OIN7 OP; -SEVE0.8P PO; -SEVE2.4P3 PO; +SEVE800T27 PO; -SULF1TAB42 PO; +UMEC1DIS PO
--- NOTE | 2025-07-06 23:02 | ERN ---
General Chief Complaint: Shortness of Breath Stated Complaint: C/O SOB, PHLEGM Time Seen by MD: 23:01 Source: patient, family History of Present Illness Initial Comments 89-year-old female feeling like she has decreased oxygenation and needs to use her sister's oxygen tank to feel like she is getting enough oxygen. She also has difficulty filling her lungs with the air and may have some small amount of sputum production. She was admitted here about a month ago with the same complaints and found to be in CHF and also have pneumonia. Patient states her symptoms now are exactly like the once brought her to the hospital a month ago. Of note she is complete renal failure and receives dialysis. Patient has no chest pain no fevers no chills no diarrhea no nausea no vomiting. Patient is being treated with chemotherapy for breast cancer. Allergies: Coded Allergies: propoxyphene (Verified Allergy, Unknown, 11/30/14) Home Meds Active Scripts Cefpodoxime Proxetil (Cefpodoxime Proxetil) 200 Mg Tablet, 1 TAB PO BID for 5 Days, #14 TAB 0 Refills Prov:MELA MORELOS [employer] 06/03/25 Azithromycin (Azithromycin) 500 Mg Tablet, 1 TAB PO DAILY for 5 Days, #5 TAB 0 Refills Prov:MELA MORELOS [employer] 06/03/25 Reported Medications Umeclidinium Brm/Vilanterol Tr (Anoro Ellipta 62.5-25 Mcg INH) 62.5 Mcg-25 Mcg/ Actuation Disk.w.dev, 1 PUFF PO DAILY 05/31/25 Sevelamer HCl (Sevelamer HCl) 800 Mg Tablet, 1600 MG PO BID 05/31/25 Nitroglycerin (Nitroglycerin) 0.4 Mg Tab.subl, 0.4 MG SL AD PRN for CHEST PAIN, TAB.SL 10/07/24 Aspirin (ASPIRIN 81MG CHEW TAB) 81 Mg Tab.chew, 81 MG PO DAILY, TAB.CHEW 10/07/24 Isosorbide Mononitrate (Isosorbide Mononitrate ER) 30 Mg Tab.er.24h, 30 MG PO DAILY, TAB 12/10/23 Exemestane (Exemestane) 25 Mg Tablet, 25 MG PO DAILY, TAB 04/24/23 Atorvastatin Calcium (Atorvastatin Calcium) 20 Mg Tablet, 20 MG PO HS, TAB 08/30/22 Omeprazole (Omeprazole) 20 Mg Capsule.dr, 20 MG PO DAILY, CAP 08/30/22 Amlodipine Besylate (Amlodipine Besylate) 10 Mg Tablet, 10 MG PO DAILY for 30 Days, #30 TAB 0 Refills 08/30/22 Vitamin B Complex (B Complex) 1 Cap Capsule, 1 CAP PO DAILY, CAP 08/30/22 Past Medical History Past Medical History: Arthritis, Diabetes-Type II, Hypertension, Renal Disese, Other Medical History Other: BREAST CA IN TREATMENT Past Surgical History: Hysterectomy Surgical History Other: RT KNEE, LT ANKLE, RT HIP, LT KIDNEY Social History Social History: Negative Constitutional: (-) chills, (-) diaphoresis, (-) fever, (-) malaise, (-) weakness, (-) other documentation EENTM: (-) eye pain, (-) blurred vision, (-) tearing, (-) double vision, (-) ear pain, (-) ear discharge, (-) nose pain, (-) nose congestion, (-) throat pain, (-) Throat swelling, (-) mouth pain, (-) tooth pain, (-) mouth swelling, (-) other documentation Respiratory: (+) cough, (+) short of breath, (+) other documentation (Patient has difficulty filling her lungs to capacity.) Cardiovascular: (-) chest pain, (-) edema, (-) palpitations, (-) syncope, (-) dyspnea on exertion, (-) other documentation Gastrointestinal/Abdominal: (-) nausea, (-) vomiting, (-) diarrhea, (-) abdominal pain, (-) abdominal distention, (-) constipation, (-) rectal bleeding, (-) dark stool/melena, (-) other documentation Genitourinary: (-) vaginal discharge, (-) vaginal bleeding, (-) dysuria, (-) frequency, (-) hematuria, (-) pain, (-) other documentation Musculoskeletal: (-) Neck pain, (-) back pain, (-) Flank Pain, (-) joint pain, (-) joint swelling, (-) muscle pain, (-) muscle stiffness, (-) gout, (-) other documentation Skin: (-) laceration, (-) contusion, (-) abrasion, (-) abscess, (-) rash, (-) change in color, (-) change in hair, (-) change in nails, (-) diaphoresis, (-) dryness, (-) other documentation Physical Exam General Appearance: (+) mild distress Orientation: (+) alert, (+) oriented x 3 Head/Face Trauma: No Eye: bilateral eye normal inspection, bilateral eye PERRL, bilateral eye EOMI Ear, Nose, Throat: (+) hearing grossly normal, (+) normal ENT inspection Neck: (+) normal inspection, (+) supple, (+) full range of motion Respiratory: (+) chest non-tender, (+) well ventilated Heart: (+) regular, (+) no gallop, (+) murmur Vascular: (+) edema Gastrointestinal: (+) soft, (+) non-tender, (+) bowel sound present Results Laboratory and Microbiology Lab and Micro Result Laboratory Tests Test 07/06/25 23:33 07/07/25 00:07 White Blood Count 6.3 K/uL (4.8-10.8) Red Blood Count 3.83 MIL/uL (4.00-5.50) L Hemoglobin 11.4 g/dL (12.0-16.0) L Hematocrit 35.9 % (36-48) L Mean Corpuscular Volume 93.7 fL (79-99) Mean Corpuscular Hemoglobin 29.8 pg (27.0-33.0) Mean Corpuscular Hemoglobin Concent 31.8 g/dL (32.0-36.0) L Red Cell Distribution Width 19.7 % (11.0-15.5) H Platelet Count 162 K/uL (130-400) Mean Platelet Volume 9.2 fL (7.5-10.5) Immature Granulocyte % (Auto) 0.5 % (0-1) Neutrophils (%) (Auto) 72.1 % (40.0-77.0) Lymphocytes (%) (Auto) 15.2 % (21.0-51.0) L Monocytes (%) (Auto) 9.3 % (3.0-13.0) Eosinophils (%) (Auto) 2.1 % (0.0-8.0) Basophils (%) (Auto) 0.8 % (0.0-5.0) Neutrophils # (Auto) 4.6 K/uL (1.8-7.7) Lymphocytes # (Auto) 1.0 K/uL (1.0-4.8) Monocytes # (Auto) 0.6 K/uL (0.1-1.0) Eosinophils # (Auto) 0.13 K/uL (0.00-0.70) Basophils # (Auto) 0.05 K/uL (0.00-0.20) Absolute Immature Granulocyte (auto 0.03 K/uL (0-1) Nucleated Red Blood Cells 0.0 % (0.0-0.19) Red Blood Cell Morphology See comments Sodium Level 132 mmol/L (136-145) L Potassium Level 4.3 mmol/L (3.5-5.1) Chloride Level 96 mmol/L (101-111) L Carbon Dioxide Level 27 mmol/L (21-32) Blood Urea Nitrogen 41 mg/dL (7-18) H Creatinine 4.7 mg/dL (0.5-1.0) H Glomerular Filtration Rate Calc 8 mL/min (>90) Random Glucose 181 mg/dL (70-105) H Total Calcium 9.2 mg/dL (8.5-10.1) Troponin I High Sensitivity 30 ng/L (4-50) B-Type Natriuretic Peptide 180 pg/mL (0-100) H Influenza Type A Antigen Negative For Type A Influenza Type B Antigen Negative For Type B SARS-CoV-2 Antigen (Rapid) PRESUMPTIVE NEGATIVE Group A Streptococcus Rapid positive (NEGATIVE) *A Blood Gas Specimen Type Arterial Arterial Blood pH 7.380 (7.350-7.450) Arterial Blood Partial Pressure CO2 42 mmHg (32-45) Arterial Blood Partial Pressure O2 56.9 mmHg (83.0-108.0) L Arterial Blood HCO3 24.2 mmol/L (21.0-28.0) Arterial Blood Oxygen Saturation 89.1 % (94.0-98.0) L Arterial Blood Base Excess -1.0 mmol/L (-2.0-3.0) Blood Gas Temperature 37.0 CELSIUS (35.5-37.0) Blood Gas Vent Mode ROOMAIR (ROOM AIR) FiO2 21.0 % Blood Gas Specimen Comment LB RN OBDULIA MDM MDM: Differential diagnosis: Recurrent pneumonia or recurrent CHF, acute [place], new respiratory infection, heart valvular disease, Rationale: Tests considered and ordered secondary to shared decision making incl ude: Previous outside records reviewed: Old ER visits. Risk of complication and/or morbidity or mortality of patient management: None Medications-Per medication reconciliation Need for hospitalization: Patient does meet criteria for hospitalization. Need for emergency major/minor surgery: No There are no social concerns with this patient. Prescription drug management Prescriptions will include symptomatic care Patient's prior external medical records from other ER visits were reviewed by me as indicated. Prior testing and results from previous visits were reviewed. Prior tests were taken into account with medical decision making and resource utilization, independent historian/historians were used to obtain complete medical history. I independently interpreted the test that were performed, results were reviewed by me and considered findings on radiology if ordered. Patient's chest x-ray shows infiltrates along the right heart border. He has a different from her prior chest x-ray. CBC is normal. Troponin is normal, but BNP is elevated. Patient is hyponatremic hypochloremic. She shows her chronic renal failure. Her serology is positive for strep throat. I have called the hospitalist service to admit her and stabilize her. ED Course Orders Procedure Category Date Status Time 12 Lead Ekg Tracing- EKG 07/06/25 Complete Technical 23:15 B-Type Natriuretic LAB 07/06/25 Complete Peptide 23:15 Basic Metabolic Panel LAB 07/06/25 Complete 23:15 Cbc With Differential LAB 07/06/25 Complete 23:15 Covid19 (Sars Antigen LAB 07/06/25 Complete Rapid) 23:15 Influenza Type A & B, LAB 07/06/25 Complete Rapid 23:15 Rapid (Group A Strep) LAB 07/06/25 Complete 23:15 Urinalysis Profile LAB 07/06/25 Logged 23:15 Troponin I High LAB 07/06/25 Complete Sensitivity 23:15 Chest 1vw RAD 07/06/25 Resulted 23:15 Arterial Blood Gas RT 07/06/25 Transmitted 23:15 Arterial Blood Gas LAB 07/07/25 Complete 00:07 Vital Signs Date Time Temp Pulse Resp B/P (MAP) Pulse Ox O2 Delivery O2 Flow Rate FiO2 07/06/25 23:42 73 16 141/50 96 Room Air* 0 21 07/06/25 22:56 98.1 72 20 130/40 97 Room Air DX & DISP Disposition: Inpatient Departure Impression: Primary Impression: Strep throat Additional Impressions: Shortness of breath, Renal failure, Pedal edema Condition: Stable Referrals: SULEIMAN ROBERSON MD (PCP) RANGEL RODRIGUEZ MD Jul 06, 2025 23:02
--- NOTE | 2025-07-06 23:47 | EKG ---
[facility] Test Date: 2025-07-06 Test Time: 23:43:33 Pat Name: HARSHAL YUEN Department: ED Room: 219 Gender: F Counseling Director: [id number] : 1935 Requested By: RANGEL RODRIGUEZ Order Number: [id number] Reading MD: Sarah Arguelles Measurements Intervals [place] Rate: 68 P: -83 NM: 212 QRS: -61 QRSD: 129 T: 95 QT: 472 QTc: 501 Interpretive Statements Sinus or ectopic atrial rhythm Atrial premature complex Borderline prolonged NM interval Nonspecific IVCD with LAD LVH with secondary repolarization abnormality ST elevation secondary to LVH Electronically Signed On 07-07-2025 11:21:47 CDT by Sarah Arguelles Please click the below link to view image of tracing.
[2025-07-06 23:56] LABS: IMMATURE GRANULOCYTE ABSOLUTE 0.03 K/uL (0-1); NUCLEATED RED BLOOD CELLS 0.0 % (0.0-0.19); PLATELET COUNT (AUTO) 162 K/uL (130-400); RED BLOOD CELL COUNT(AUTO) 3.83 MIL/uL (4.00-5.50); RED CELL DISTRIBUTION WIDTH 19.7 % (11.0-15.5); WHITE BLOOD COUNT (AUTO) 6.3 K/uL (4.8-10.8)
[2025-07-07] VITALS (29 sets, daily range): BP systolic 137–162; BP diastolic 45–75; PULSE 60–90; RESP 16–26; TEMP 97.6–98.3; O2SAT 96–99
[2025-07-07 00:08] LABS: ABG BASE EXCESS -1.0 mmol/L (-2.0-3.0); ABG HCO3 24.2 mmol/L (21.0-28.0); ABG OXYGEN SATURATION 89.1 % (94.0-98.0); ABG PCO2 42 mmHg (32-45); ABG PH 7.380 (7.350-7.450); DEVICE COMMENT LB RN ANALISA; PO2, ARTERIAL BG 56.9 mmHg (83.0-108.0); TEMPERATURE, CELSIUS BG 37.0 CELSIUS (35.5-37.0); VENT MODE, BG ROOMAIR (ROOM AIR)
[2025-07-07 00:11] LABS: CREATININE 4.7 mg/dL (0.5-1.0); GLOMERULAR FILTR. RATE CALC 8.0 mL/min (>90); GLUCOSE,RANDOM 181.0 mg/dL (70-105); SODIUM SERUM 132.0 mmol/L (136-145); UREA NITROGEN, BLOOD 41.0 mg/dL (7-18)
[2025-07-07 00:28] LABS: RAPID GROUP A STREP positive (NEGATIVE)
--- NOTE | 2025-07-07 00:31 | HMCIMG ---
EXAM: CR Chest, 1 view CLINICAL HISTORY: Shortness of breath. COMPARISON: Chest radiograph dated 06/03/2025. FINDINGS: Small pleural effusions with lower zone airspace disease bilaterally. Questionable pleural effusion along the right major and minor fissures. Mild to moderate cardiomegaly and pulmonary vascular congestion. No pneumothorax. Mild COPD. Mild atherosclerotic aorta. The vascular stent graft overlies the axillary to brachial vessels on the right side. No acute osseous abnormality. IMPRESSION: Small pleural effusions with lower zone airspace disease bilaterally. Questionable pleural effusion along the right major and minor fissures. Mild to moderate cardiomegaly and pulmonary vascular congestion. No gross interval changes. /[place]
[2025-07-07 00:42] LABS: INFLUENZA TYPE A Negative For Type A (NEGATIVE); INFLUENZA TYPE B Negative For Type B (NEGATIVE)
[2025-07-07 00:43] LABS: COVID19 (SARS ANTIGEN RAPID) PRESUMPTIVE NEGATIVE (NEGATIVE)
[2025-07-07] MEDS ORDERED: LACTULOSE 20 GM/30 ML UDCUP PO PRN (01:00)
--- NOTE | 2025-07-07 01:25 | HP ---
[facility] HISTORY & PHYSICAL Date Patient Seen: Jul 07, 2025 Time of Visit: 01:24 Supervising Physician: Dr. Harris Primary Care Physician: Dr. Patrice Ellison Outpatient Specialists: Dr. Francis Loja Inpatient Consults: Installment Agent PROBLEM LIST: Acute hypoxemic respiratory failure, in need of oxygen supplementation COPD with exacerbation, POA Pulmonary vascular congestion, per chest x-ray on 09/05/2025 LVEF 45-50%, stage II diastolic dysfunction, per echo on 05/31/2025 Small pleural effusions with lower zone airspace disease bilaterally, per chest x-ray on 07/06/2025. Group A strep positive, POA Fluid overload, BNP 140, POA Pedal edema, POA Cardiomegaly Electrolyte derangement (hyponatremia, hypochloremia) ESRD on hemodialysis M, W, F Anemia of chronic disease Diabetes mellitus with hyperglycemia Debility and frailty Chronic problem list: (COPD, HTN, HDL, DM type 2, ESRD, arthritis, breast cancer in treatment) HPI: Ms. Betancourt is a 89-year-old female with a history of a DM type 2, HT N, ESRD on hemodialysis, arthritis, breast cancer in treatment who presented to [facility] for evaluation of feeling like she has decreased oxygenation. The patient reported that she has been using her sister's oxygen for two weeks due t o shortness of breath. The patient reported having difficulty filling her lungs with the air and may have some small amount of sputum production. She was admitted here about a month ago with the same complaints and found to be in CHF and also have pneumonia. Patient stated her symptoms now are exactly like the once brought her to the hospital a month ago. The patient reported that during dialysis sometimes she feels short of breath and request that she get oxygen. The patient reports that she follows with Dr. Francis Loja, program checker but has not placed her on oxygen and has not diagnosed her with COPD that she knows of. The patient denied any chest pain, fevers, chills, N/V/D. Vitals on arrival: 130/40, respirations 20 bpm, HR 73bpm, 97% on room air, 98.1 F. Patient is positive for rapid strep. Negative for influenza and COVID. ABGs obtain on room air: PH 7.380, pCO2 42, PO2 56.9, bicarbonate 24.2, O2 sats 89.1, base excess -1. Remarkable lab results: Hemoglobin 11.4, hematocrit 35.9, RBC 3.83, Na 132, chloride 96, BUN 41, creatinine 4.7, GFR 8, glucose 181, BNP 180. Chest x-ray: Small pleural effusions with lower zone airspace disease bilaterally. Questionable pleural effusion along the right major and minor fissures. Mild to moderate cardiomegaly and pulmonary vascular congestion. Mild COPD. No gross interval changes. I assessed the patient at bedside. No family members at bedside She was on 2 L nasal cannula, breathing was even, unlabored, in no distress. I informed her of labs, diagnostics, and plan of care. She verbalizes understanding and is in agreement with the plan. Plan and assessment are listed below. PAST MEDICAL HX: see above PAST SURGICAL HX: Hysterectomy, right knee surgery, left ankle surgery, right hip surgery, left kidney surgery SOCIAL HISTORY: No tobacco, ETOH, or illicit drug use Coded Allergies: propoxyphene (Verified Allergy, Unknown, 11/30/14) REVIEW OF SYSTEMS: 12 point ROS reviewed with patient. Pertinent positives mentioned above. Otherwise negative. PHYSICAL EXAM: GENERAL: Alert, weak, awake oriented x 3 HEENT: EOMI, Sclera non icteric, moist mucosa NECK: Supple, no JVD, trachea midline LUNGS: Clear breath sounds bilaterally. No wheezes HEART: Regular rate and rhythm. Normal S1 and S2, without murmurs ABD: Abdomen soft, nontender. Bowel sounds present EXT: No clubbing cyanosis, + edema NEURO: Alert and oriented X3, follows commands Vital Signs (last 8hr) Date Time Temp Pulse Resp B/P (MAP) Pulse Ox O2 Delivery O2 Flow Rate FiO2 07/07/25 00:10 76 19 N/Cannula Low lpm 0.0 21 07/06/25 23:42 73 16 141/50 96 Room Air* 0 21 07/06/25 22:56 98.1 72 20 130/40 97 Room Air LABS: Hematology Labs: Test 07/06/25 23:33 Range/Units White Blood Count 6.3 4.8-10.8 K/uL Red Blood Count 3.83 L 4.00-5.50 MIL/uL Hemoglobin 11.4 L 12.0-16.0 g/dL Hematocrit 35.9 L 36-48 % Mean Corpuscular Volume 93.7 79-99 fL Mean Corpuscular Hemoglobin 29.8 27.0-33.0 pg Mean Corpuscular Hemoglobin Concent 31.8 L 32.0-36.0 g/dL Red Cell Distribution Width 19.7 H 11.0-15.5 % Platelet Count 162 130-400 K/uL Mean Platelet Volume 9.2 7.5-10.5 fL Immature Granulocyte % (Auto) 0.5 0-1 % Neutrophils (%) (Auto) 72.1 40.0-77.0 % Lymphocytes (%) (Auto) 15.2 L 21.0-51.0 % Monocytes (%) (Auto) 9.3 3.0-13.0 % Eosinophils (%) (Auto) 2.1 0.0-8.0 % Basophils (%) (Auto) 0.8 0.0-5.0 % Neutrophils # (Auto) 4.6 1.8-7.7 K/uL Lymphocytes # (Auto) 1.0 1.0-4.8 K/uL Monocytes # (Auto) 0.6 0.1-1.0 K/uL Eosinophils # (Auto) 0.13 0.00-0.70 K/uL Basophils # (Auto) 0.05 0.00-0.20 K/uL Absolute Immature Granulocyte (auto 0.03 0-1 K/uL Nucleated Red Blood Cells 0.0 0.0-0.19 % Red Blood Cell Morphology See comments Chemistry Labs: Test 07/06/25 23:33 Range/Units Sodium Level 132 L 136-145 mmol/L Potassium Level 4.3 3.5-5.1 mmol/L Chloride Level 96 L 101-111 mmol/L Carbon Dioxide Level 27 21-32 mmol/L Blood Urea Nitrogen 41 H 7-18 mg/dL Creatinine 4.7 H 0.5-1.0 mg/dL Glomerular Filtration Rate Calc 8 >90 mL/min Random Glucose 181 H 70-105 mg/dL Total Calcium 9.2 8.5-10.1 mg/dL Troponin I High Sensitivity 30 4-50 ng/L B-Type Natriuretic Peptide 180 H 0-100 pg/mL DIAGNOSTICS / RADIOLOGY RESULTS: [ ] PLAN Admit to PCCU with continuous telemetry monitoring. Consult with case management for assistance in obtaining oxygen for the patient. Nephrology consult for hemodialysis. Monitor respirations status closely. Continue oxygen therapy as needed. Titrate oxygen to keep SpO2 equal to greater than 92%. Albuterol and Atrovent nebulizer treatments scheduled q.6 hours. Pulmicort nebulizer treatments Q12 hours. RT to provide IS and education on use. P.r.n. medications for: Cough, shortness of breath, pain management, nausea, vomiting, constipation, hypertension. Continue antibiotic therapy: Cefazolin and start Zithromax IV. Glucometer checks a.c. and HS with insulin regular sliding scale as needed per protocol. Blood pressure checks every 4 hours and as needed. Reconcile home medications once available. Monitor renal and liver function. Monitor electrolytes and treat accordingly. A.m. labs. GI and DVT prophylaxis. Further plan/orders per hospitalization course. NEURO: Minimize central acting medications as possible. Maintain fall precautions, adequate lighting during the day PULMONARY: Supplemental 02 as needed. Maintain aspiration precautions at all times CARDIOVASCULAR: Follow hemodynamics. Vital signs per facility protocol GI & NUTRITION: Continue with nutritional support. Continue stool softeners and laxatives as needed. KIDNEYS & ELECTROLYTES: Strict monitoring of intake, output and overall fluid balance. Avoid nephrotoxic medications to the extent possible. Medications to be dosed according to renal function. Monitor electrolytes and replace as needed ENDOCRINE: Maintain blood glucose between 100-180 at all times. Hypoglycemia protocol in place INFECTIOUS DISEASE: Trend temperature, WBC and procalcitonin level Follow cultures, deescalate antibiotics as soon as possible. Panculture if new onset fever ONCOLOGY/HEMATOLOGY/COAGULATION: Monitor for s/s of bleeding Monitor hemoglobin, coagulation studies as needed SKIN: Pressure ulcer prevention per facility protocol Specialty mattress ORTHO/REHAB: Continue PT/OT Prophylaxis: Continue GI and DVT prophylaxis Code Status: Full Resuscitation Disposition: [facility] LOPE[facility] Jul 07, 2025 01:25
[2025-07-07] MEDS: AZITHROMYCIN 500MG+NS 250ML 250 ML IVPB SCH (02:48)
[2025-07-07] MEDS: BUDESONIDE 0.5 MG/2 ML INH IH SCH (04:39)
[2025-07-07] MEDS: ALBUTEROL 0.083% 2.5 MG/3 ML INH IH SCH (04:39)
--- NOTE | 2025-07-07 07:42 | NUR ---
REPORT GIVEN TO YAMIL PUGH
--- NOTE | 2025-07-07 09:53 | NUR ---
DCP: HOME Sw me with pt who is alert and oriented, 89yro woman. Pt lives at home with her 87yro and daughter Maribel . Pt reports her daughters share in caregiving duties for their parents. daughter Ramya [phone] is primary caregiver, does home management, cooks, laundry, Cris does transport to dialysis MWF at 4am to [facility]. Barb Delgado [phone] cooks meals on MWF and Maribel helps as needed as well. Pt states daughters give her bed baths and assist with dressing and grooming, changing her diaper as needed. Pt has w/c, hospital bed, shower chair. No hh. PCP is Robinson Ellison and uses [facility] for rx. Pt denies dc needs and wants to return home a dc Addendum: 07/07/25 at 1002 by SONU GROVES Amended: Links added.
[2025-07-07] MEDS: Solu-medROL 40MG VIAL IVP SCH (11:22)
--- NOTE | 2025-07-07 12:15 | NUR ---
[facility] ICU Skin Assessment: Patient assessed by wound healing team. Patient with no wounds or skin breakdown noted. Assessment and recommendations provided to primary nurse. Education provided. Addendum: 07/07/25 at 1433 by PATRICIA CHOUDHURY RN RN/ Amended: Links added.
[2025-07-07] MEDS ORDERED: FERR-82 PO (12:35)
[2025-07-07] MEDS ORDERED: ONDA-105 PO (12:39)
--- NOTE | 2025-07-07 12:41 | PN ---
[facility] PROGRESS NOTE Date Patient Seen: Jul 07, 2025 Time of Visit: 12:41 Supervising Physician: Dr. Loja Primary Care Physician: Dr. Patrice Ellison Outpatient Specialists: Dr. Francis Loja Inpatient Consults: Box Loader PROBLEM LIST: Acute hypoxemic respiratory failure, in need of oxygen supplementation COPD with exacerbation, POA Pulmonary vascular congestion, per chest x-ray on 09/05/2025 LVEF 45-50%, stage II diastolic dysfunction, per echo on 05/31/2025 Small pleural effusions with lower zone airspace disease bilaterally, per chest x-ray on 07/06/2025. Group A strep positive, POA Fluid overload, BNP 140, POA Pedal edema, POA Cardiomegaly Electrolyte derangement (hyponatremia, hypochloremia) ESRD on hemodialysis M, W, F Anemia of chronic disease Diabetes mellitus with hyperglycemia Debility and frailty Chronic problem list: (COPD, HTN, HDL, DM type 2, ESRD, arthritis, breast cancer in treatment) INTERVAL HISTORY:Patient evaluated at bedside today, sitting upright in her chair, she is AAO x3. Patient continues on 2 L nasal cannula, patient states that her daughter has oxygen at home and she uses it intermittently when she feels the need. Patient's white count is within normal limits, hemoglobin stable 11.4. Patient's BNP is 180 on this admission, she continues on and seven Solu- Medrol 40 mg b.i.d. IV push. Nephrology has been consulted for prescription for hemodialysis. We will continue to monitor the patient's progress closely, continue with current medical treatment plan. Plan Continue nebulizer treatments Continue with antibiotics Continue Solu-Medrol 40 mg b.i.d. IV push Follow hemodialysis schedule, nephrology on board Continue supplemental O2 as needed to maintain SpO2 above 95% [ ] REVIEW OF SYSTEMS: 12 point ROS reviewed with patient. Pertinent positives mentioned above. Other grande negative. PHYSICAL EXAM: GENERAL: Alert, weak, awake oriented x 3 HEENT: EOMI, Sclera non icteric, moist mucosa NECK: Supple, no JVD, trachea midline LUNGS: Clear breath sounds bilaterally. No wheezes HEART: Regular rate and rhythm. Normal S1 and S2, without murmurs ABD: Abdomen soft, nontender. Bowel sounds present EXT: No clubbing cyanosis, + edema NEURO: Alert and oriented X3, follows commands Vital Signs (last 8hr) Date Time Temp Pulse Resp B/P (MAP) Pulse Ox O2 Delivery O2 Flow Rate FiO2 07/07/25 12:00 97.9 90 22 144/75 99 Nasal Cannula 2.0 07/07/25 11:45 71 18 07/07/25 11:44 19 N/Cannula Low lpm 2.0 28 07/07/25 08:40 98.2 75 23 141/55 99 Nasal Cannula 2.0 07/07/25 07:04 69 18 07/07/25 07:03 64 18 167/57 100 Nasal Cannula* 3 32 07/07/25 07:00 19 N/Cannula Low lpm 2.0 28 LABS: Hematology Labs: Test 07/06/25 23:33 Range/Units White Blood Count 6.3 4.8-10.8 K/uL Red Blood Count 3.83 L 4.00-5.50 MIL/uL Hemoglobin 11.4 L 12.0-16.0 g/dL Hematocrit 35.9 L 36-48 % Mean Corpuscular Volume 93.7 79-99 fL Mean Corpuscular Hemoglobin 29.8 27.0-33.0 pg Mean Corpuscular Hemoglobin Concent 31.8 L 32.0-36.0 g/dL Red Cell Distribution Width 19.7 H 11.0-15.5 % Platelet Count 162 130-400 K/uL Mean Platelet Volume 9.2 7.5-10.5 fL Immature Granulocyte % (Auto) 0.5 0-1 % Neutrophils (%) (Auto) 72.1 40.0-77.0 % Lymphocytes (%) (Auto) 15.2 L 21.0-51.0 % Monocytes (%) (Auto) 9.3 3.0-13.0 % Eosinophils (%) (Auto) 2.1 0.0-8.0 % Basophils (%) (Auto) 0.8 0.0-5.0 % Neutrophils # (Auto) 4.6 1.8-7.7 K/uL Lymphocytes # (Auto) 1.0 1.0-4.8 K/uL Monocytes # (Auto) 0.6 0.1-1.0 K/uL Eosinophils # (Auto) 0.13 0.00-0.70 K/uL Basophils # (Auto) 0.05 0.00-0.20 K/uL Absolute Immature Granulocyte (auto 0.03 0-1 K/uL Nucleated Red Blood Cells 0.0 0.0-0.19 % Red Blood Cell Morphology See comments Chemistry Labs: Test 07/07/25 11:25 07/06/25 23:33 Range/Units Whole Blood Glucose 177 H 70-110 MG/DL Sodium Level 132 L 136-145 mmol/L Potassium Level 4.3 3.5-5.1 mmol/L Chloride Level 96 L 101-111 mmol/L Carbon Dioxide Level 27 21-32 mmol/L Blood Urea Nitrogen 41 H 7-18 mg/dL Creatinine 4.7 H 0.5-1.0 mg/dL Glomerular Filtration Rate Calc 8 >90 mL/min Random Glucose 181 H 70-105 mg/dL Total Calcium 9.2 8.5-10.1 mg/dL Troponin I High Sensitivity 30 4-50 ng/L B-Type Natriuretic Peptide 180 H 0-100 pg/mL DIAGNOSTICS / RADIOLOGY RESULTS: [ ] PLAN Admit to PCCU with continuous telemetry monitoring. Consult with case management for assistance in obtaining oxygen for the patient. Nephrology consult for hemodialysis. Monitor respirations status closely. Continue oxygen therapy as needed. Titrate oxygen to keep SpO2 equal to greater than 92%. Albuterol and Atrovent nebulizer treatments scheduled q.6 hours. Pulmicort nebulizer treatments Q12 hours. RT to provide IS and education on use. P.r.n. medications for: Cough, shortness of breath, pain management, nausea, vomiting, constipation, hypertension. Continue antibiotic therapy: Cefazolin and start Zithromax IV. Glucometer checks a.c. and HS with insulin regular sliding scale as needed per p rotocol. Blood pressure checks every 4 hours and as needed. Reconcile home medications once available. Monitor renal and liver function. Monitor electrolytes and treat accordingly. A.m. labs. GI and DVT prophylaxis. Further plan/orders per hospitalization course. NEURO: Minimize central acting medications as possible. Maintain fall precautions, adequate lighting during the day PULMONARY: Supplemental 02 as needed. Maintain aspiration precautions at all times CARDIOVASCULAR: Follow hemodynamics. Vital signs per facility protocol GI & NUTRITION: Continue with nutritional support. Continue stool softeners and laxatives as needed. KIDNEYS & ELECTROLYTES: Strict monitoring of intake, output and overall fluid balance. Avoid nephrotoxic medications to the extent possible. Medications to be dosed according to renal function. Monitor electrolytes and replace as needed ENDOCRINE: Maintain blood glucose between 100-180 at all times. Hypoglycemia protocol in place INFECTIOUS DISEASE: Trend temperature, WBC and procalcitonin level Follow cultures, deescalate antibiotics as soon as possible. Panculture if new onset fever ONCOLOGY/HEMATOLOGY/COAGULATION: Monitor for s/s of bleeding Monitor hemoglobin, coagulation studies as needed SKIN: Pressure ulcer prevention per facility protocol Specialty mattress ORTHO/REHAB: Continue PT/OT Prophylaxis: Continue GI and DVT prophylaxis Code Status: Full Resuscitation Disposition: MITZY HARRISON Jul 07, 2025 12:41
[2025-07-07] MEDS ORDERED: ALBUTEROL (12:42)
[2025-07-07] MEDS ORDERED: 0.9% NACL 250ML 250 ML IV SCH (14:00)
--- NOTE | 2025-07-07 15:42 | CONS ---
NEPHROLOGY CONSULTATION NOTE Date/Time Patient Seen: Jul 07, 2025 HISTORY OF PRESENT ILLNESS: This is an 89-year-old female with a history of a DM type 2, HTN, ESRD on hemodialysis, arthritis, breast cancer She presented to [facility] [place] ED for evaluation of feeling like she has decreased oxygenation. Solu-Medrol 40 mg b.i.d. IV push Continues on antibiotics She is due for dialysis today She was seen in the ICU, in no acute distress REVIEW OF SYSTEMS: GENERAL: Negative for any nausea, vomiting, fevers, chills, or weight loss. NEUROLOGIC: Negative for any blurry vision, blind spots, double vision, facial asymmetry, dysphagia, dysarthria, hemiparesis, hemisensory deficits, vertigo, ataxia. HEENT: Negative for any head trauma, neck trauma, neck stiffness, photophobia, phonophobia, sinusitis, rhinitis. CARDIAC: Negative for any chest pain, dyspnea on exertion, paroxysmal nocturnal dyspnea, peripheral edema. PULMONARY: Negative for any shortness of breath, wheezing, COPD, or TB exposure. GASTROINTESTINAL: Negative for any abdominal pain, nausea, vomiting, bright red blood per rectum, melena. GENITOURINARY: Negative for any dysuria, hematuria, incontinence. INTEGUMENTARY: Negative for any rashes, cuts, insect bites. RHEUMATOLOGIC: Negative for any joint pains, photosensitive rashes, history of vasculitis or kidney problems. HEMATOLOGIC: Negative for any abnormal bruising, frequent infections or bleeding. PAST MEDICAL HISTORY: DM type 2, HTN, ESRD on hemodialysis, arthritis, breast cancer PAST SURGICAL HISTORY: Noncontributory PAST SOCIAL HISTORY: Denies use of alcohol, tobacco or illicit drugs FAMILY HISTORY: Noncontributory PHYSICAL EXAM: GENERAL: Alert and oriented x 3. No acute distress. Well-nourished. EYES: EOMI. Anicteric. HENT: Moist mucous membranes. No scleral icterus. No cervical lymphadenopathy. LUNGS: Clear to auscultation bilaterally. No accessory muscle use. CARDIOVASCULAR: Regular rate and rhythm. No murmur. No JVD. ABDOMEN: Soft, non-tender and non-distended. No palpable masses. EXTREMITIES: No edema. Non-tender. SKIN: No rashes or lesions. Warm. NEUROLOGIC: No focal neurological deficits. CN II-XII grossly intact, but not individually tested. PSYCHIATRIC: Cooperative. Appropriate mood and affect. MEDICATIONS: [ ] Current Medications Medications (Trade) Dose Ordered Sig/[place] Route PRN Reason Start Time Stop Time Status Last Admin Dose Admin Acetaminophen (TYLenol 325MG TAB) 650 mg Q6H PRN PO FEVER/MILD PAIN LEVEL 1-3 07/07/25 01:00 08/06/25 00:59 Acetaminophen (TYLenol 650MG SUPPOSITORY) 650 mg Q6H PRN RC FEVER / MILD PAIN 1-3 IF NPO 07/07/25 01:00 08/06/25 00:59 Albuterol Sulfate (Proventil 0.083% 2.5mg/3ml) 2.5 mg [id number] IH 07/07/25 02:00 08/06/25 01:59 07/07/25 11:41 2.5 MG Azithromycin 250 ml @ 125 mls/hr Q24H IVPB 07/07/25 01:30 07/17/25 01:29 07/07/25 02:48 125 MLS/HR Budesonide (Pulmicort 0.5 Mg/2ml) 0.5 mg BIDRESP IH 07/07/25 02:00 08/06/25 01:59 07/07/25 06:59 0.5 MG Cefazolin Sodium (ANCEF 1 gm vial) 1 gm Q24H IVPB 07/07/25 01:00 07/17/25 00:59 07/07/25 01:15 1 GM Docusate Sodium (COLace 100MG CAP) 100 mg BID PRN PO CONSTIPATION 07/07/25 01:00 08/06/25 00:59 Insulin Human Regular (humuLIN R 100 UNIT/ML 3ML) INSULIN SLIDING SCAL... ACHS SQ 07/07/25 07:30 08/06/25 07:29 07/07/25 11:32 4 UNIT Ipratropium [place] (AtrovENT UD) 0.5 mg [id number] IH 07/07/25 02:00 08/06/25 01:59 07/07/25 11:41 0.5 MG Labetalol HCl (TRANdate 20MG SYG) 10 mg Q2H PRN IV SBP GREATER THAN 160 07/07/25 01:00 08/06/25 00:59 Lactulose (Constulose 20gm/ 30ml Udcup) 20 gm Q6H PRN PO CONSTIPATION 07/07/25 01:00 08/06/25 00:59 Methylprednisolone Sodium Succinate (Solu-medROL 40MG) 40 mg BID IVP 07/07/25 09:00 08/06/25 08:59 07/07/25 11:22 40 MG Ondansetron HCl (zoFRAN 4MG INJ) 4 mg Q6H PRN IVP NAUSEA/VOMITING 07/07/25 01:00 08/06/25 00:59 Sodium Chloride 250 ml @ 0 mls/hr AD IV 07/07/25 14:00 08/06/25 13:59 Temazepam (restORIL 15 MG CAP) 15 mg HS PRN PO INSOMNIA/SLEEP 07/07/25 01:00 08/06/25 00:59 Vitamin B Complex/ Vit C/Folic Acid (Nephrovite Tablet) 1 cap DAILY PO 07/08/25 09:00 08/07/25 08:59 Vital Signs (last 8hr) Date Time Temp Pulse Resp B/P (MAP) Pulse Ox O2 Delivery O2 Flow Rate FiO2 07/07/25 15:30 60 16 152/51 Nasal Cannula 2.0 07/07/25 15:15 66 22 153/55 Nasal Cannula 2.0 07/07/25 15:00 61 16 152/54 Nasal Cannula 2.0 07/07/25 14:45 76 16 148/59 Nasal Cannula 2.0 07/07/25 14:32 97.9 75 16 149/55 96 Nasal Cannula 2.0 07/07/25 14:00 97.9 70 18 149/51 96 Nasal Cannula 2.0 07/07/25 12:00 97.9 90 22 144/75 99 Nasal Cannula 2.0 07/07/25 11:45 71 18 07/07/25 11:44 19 N/Cannula Low lpm 2.0 28 07/07/25 08:40 98.2 75 23 141/55 99 Nasal Cannula 2.0 DIAGNOSTICS / RADIOLOGY: [ Copy/paste Image report here. If no images then delete ] LABORATORY: [ ] Hematology Labs: Test 07/06/25 23:33 Range/Units White Blood Count 6.3 4.8-10.8 K/uL Red Blood Count 3.83 L 4.00-5.50 MIL/uL Hemoglobin 11.4 L 12.0-16.0 g/dL Hematocrit 35.9 L 36-48 % Mean Corpuscular Volume 93.7 79-99 fL Mean Corpuscular Hemoglobin 29.8 27.0-33.0 pg Mean Corpuscular Hemoglobin Concent 31.8 L 32.0-36.0 g/dL Red Cell Distribution Width 19.7 H 11.0-15.5 % Platelet Count 162 130-400 K/uL Mean Platelet Volume 9.2 7.5-10.5 fL Immature Granulocyte % (Auto) 0.5 0-1 % Neutrophils (%) (Auto) 72.1 40.0-77.0 % Lymphocytes (%) (Auto) 15.2 L 21.0-51.0 % Monocytes (%) (Auto) 9.3 3.0-13.0 % Eosinophils (%) (Auto) 2.1 0.0-8.0 % Basophils (%) (Auto) 0.8 0.0-5.0 % Neutrophils # (Auto) 4.6 1.8-7.7 K/uL Lymphocytes # (Auto) 1.0 1.0-4.8 K/uL Monocytes # (Auto) 0.6 0.1-1.0 K/uL Eosinophils # (Auto) 0.13 0.00-0.70 K/uL Basophils # (Auto) 0.05 0.00-0.20 K/uL Absolute Immature Granulocyte (auto 0.03 0-1 K/uL Nucleated Red Blood Cells 0.0 0.0-0.19 % Red Blood Cell Morphology See comments Chemistry Labs: Test 07/07/25 11:25 07/06/25 23:33 Range/Units Whole Blood Glucose 177 H 70-110 MG/DL Sodium Level 132 L 136-145 mmol/L Potassium Level 4.3 3.5-5.1 mmol/L Chloride Level 96 L 101-111 mmol/L Carbon Dioxide Level 27 21-32 mmol/L Blood Urea Nitrogen 41 H 7-18 mg/dL Creatinine 4.7 H 0.5-1.0 mg/dL Glomerular Filtration Rate Calc 8 >90 mL/min Random Glucose 181 H 70-105 mg/dL Total Calcium 9.2 8.5-10.1 mg/dL Troponin I High Sensitivity 30 4-50 ng/L B-Type Natriuretic Peptide 180 H 0-100 pg/mL ASSESSMENT: Acute hypoxemic respiratory failure, in need of oxygen supplementation COPD with exacerbation, POA Pulmonary vascular congestion, per chest x-ray on 09/05/2025 LVEF 45-50%, stage II diastolic dysfunction, per echo on 05/31/2025 Small pleural effusions with lower zone airspace disease bilaterally, per chest x-ray on 07/06/2025. Group A strep positive, POA Fluid overload, BNP 140, POA Pedal edema, POA Cardiomegaly Electrolyte derangement (hyponatremia, hypochloremia) ESRD on hemodialysis M, W, F Anemia of chronic disease Diabetes mellitus with hyperglycemia Debility and frailty PLAN: Patient can be given BiPAP as needed patient is monitored in ICU and is critically ill Labs and Diagnostics/ Radiology personally reviewed and interpreted by myself and supervising physician We have reviewed dialysis and external records in detail Continue dialysis schedule Saturday 1.5 L fluid restriction Continue to monitor H&H Epogen on dialysis days, as needed Continue with frequent monitoring of renal function, anemia, and electrolytes Order CBC, BMP, and electrolytes in the morning May use Dilaudid 0.5 mg IV every 6 hours as needed for severe pain Monitor blood pressure adjust medication doses as needed Maintain normotensive state Strict intake, output, and daily weight should be monitored Please renally adjust medications. Avoid nephrotoxics and nonsteroidal drugs. We will continue to monitor the patient closely We have discussed with the other team physicians in detail about the care plan ATTESTATION BY PHYSICIAN I have seen and examined the patient. I reviewed the documentation, medical decision making, and treatment plan as noted by the mid-level provider above. I agree with the findings and plan of care. Patient is critically ill total critical care time spent was more than 50 minutes NINOSKA MANRIQUEZ MD, [facility] Jul 07, 2025 15:42 NINOSKA MANRIQUEZ MD Jul 07, 2025 22:18
[2025-07-08] VITALS (15 sets, daily range): BP systolic 88–157; BP diastolic 46–71; PULSE 72–80; RESP 18–20; TEMP 98.1–98.7; O2SAT 95–100
[2025-07-08 04:17] LABS: IMMATURE GRANULOCYTE ABSOLUTE 0.02 K/uL (0-1); NUCLEATED RED BLOOD CELLS 0.0 % (0.0-0.19); PLATELET COUNT (AUTO) 189 K/uL (130-400); RED BLOOD CELL COUNT(AUTO) 3.77 MIL/uL (4.00-5.50); RED CELL DISTRIBUTION WIDTH 19.3 % (11.0-15.5); WHITE BLOOD COUNT (AUTO) 4.8 K/uL (4.8-10.8)
[2025-07-08 04:35] LABS: ASPARTATE AMINOTRANSFERASE 20.0 U/L (10-37); CREATININE 4.0 mg/dL (0.5-1.0); GLOMERULAR FILTR. RATE CALC 10.0 mL/min (>90); GLUCOSE,RANDOM 156.0 mg/dL (70-105); PHOSPHORUS 3.9 mg/dL (2.5-4.9); SODIUM SERUM 137.0 mmol/L (136-145); TOTAL PROTEIN, SERUM 6.9 g/dL (6.0-8.3); UREA NITROGEN, BLOOD 35.0 mg/dL (7-18)
[2025-07-08] MEDS: Vitamin B Complex/Vit C/Folic Acid PO SCH (08:36)
[2025-07-08] MEDS: 0.9%NACL 1000ML 1,000 ML IV ONE (08:37)
--- NOTE | 2025-07-08 08:43 | PN ---
NEPHROLOGY NOTE This patient has been evaluated in the ICU, seen several times. The patient is short of breath, with underlying COPD exacerbation, renal failure, anemia, multiple other comorbidities. No other associated findings. No other aggravating or relieving factors. The patient remains weak. She is short of breath. Fluid restriction is advised. The patient was seen several times on dialysis and several times in the ICU. Total critical care time was more than 15 minutes today. Thank you for this patient. TID: [id number] RECEIPT: [id number]
--- NOTE | 2025-07-08 13:01 | PN ---
NEPHROLOGY PROGRESS NOTE Date/Time Patient Seen: Jul 08, 2025 SUBJECTIVE: This is an 89-year-old female with a history of a DM type 2, HTN, ESRD on hemodialysis, arthritis, breast cancer She presented to [facility] [place] [facility] for evaluation of feeling like she has decreased oxygenation. Group A strep positive She continues on azithromycin, Solu-Medrol and Ancef. She tolerated dialysis without difficulty yesterday. She denies any shortness of breath She was seen in the medical floor, in no acute distress REVIEW OF SYSTEMS: GENERAL: Negative for any nausea, vomiting, fevers, chills, or weight loss. NEUROLOGIC: Negative for any blurry vision, blind spots, double vision, facial asymmetry, dysphagia, dysarthria, hemiparesis, hemisensory deficits, vertigo, ataxia. HEENT: Negative for any head trauma, neck trauma, neck stiffness, photophobia, phonophobia, sinusitis, rhinitis. CARDIAC: Negative for any chest pain, dyspnea on exertion, paroxysmal nocturnal dyspnea, peripheral edema. PULMONARY: Negative for any shortness of breath, wheezing, COPD, or TB exposure. GASTROINTESTINAL: Negative for any abdominal pain, nausea, vomiting, bright red blood per rectum, melena. GENITOURINARY: Negative for any dysuria, hematuria, incontinence. INTEGUMENTARY: Negative for any rashes, cuts, insect bites. RHEUMATOLOGIC: Negative for any joint pains, photosensitive rashes, history of vasculitis or kidney problems. HEMATOLOGIC: Negative for any abnormal bruising, frequent infections or bl eeding. PHYSICAL EXAM: GENERAL: Alert and oriented x 3. No acute distress. Well-nourished. EYES: EOMI. Anicteric. HENT: Moist mucous membranes. No scleral icterus. No cervical lymphadenopathy. LUNGS: Clear to auscultation bilaterally. No accessory muscle use. CARDIOVASCULAR: Regular rate and rhythm. No murmur. No JVD. ABDOMEN: Soft, non-tender and non-distended. No palpable masses. EXTREMITIES: No edema. Non-tender. SKIN: No rashes or lesions. Warm. NEUROLOGIC: No focal neurological deficits. CN II-XII grossly intact, but not individually tested. PSYCHIATRIC: Cooperative. Appropriate mood and affect. LABORATORY: [ ] Hematology Labs: Test 07/08/25 03:53 07/06/25 23:33 Range/Units White Blood Count 4.8 4.8-10.8 K/uL Red Blood Count 3.77 L 4.00-5.50 MIL/uL Hemoglobin 11.2 L 12.0-16.0 g/dL Hematocrit 34.7 L 36-48 % Mean Corpuscular Volume 92.0 79-99 fL Mean Corpuscular Hemoglobin 29.7 27.0-33.0 pg Mean Corpuscular Hemoglobin Concent 32.3 32.0-36.0 g/dL Red Cell Distribution Width 19.3 H 11.0-15.5 % Platelet Count 189 130-400 K/uL Mean Platelet Volume 10.1 7.5-10.5 fL Immature Granulocyte % (Auto) 0.4 0-1 % Neutrophils (%) (Auto) 91.2 H 40.0-77.0 % Lymphocytes (%) (Auto) 6.9 L 21.0-51.0 % Monocytes (%) (Auto) 1.3 L 3.0-13.0 % Eosinophils (%) (Auto) 0.0 0.0-8.0 % Basophils (%) (Auto) 0.2 0.0-5.0 % Neutrophils # (Auto) 4.4 1.8-7.7 K/uL Lymphocytes # (Auto) 0.3 L 1.0-4.8 K/uL Monocytes # (Auto) 0.1 0.1-1.0 K/uL Eosinophils # (Auto) 0.00 0.00-0.70 K/uL Basophils # (Auto) 0.01 0.00-0.20 K/uL Absolute Immature Granulocyte (auto 0.02 0-1 K/uL Nucleated Red Blood Cells 0.0 0.0-0.19 % White Cell Morphology Comment See comments Red Blood Cell Morphology See comments Chemistry Labs: Test 07/08/25 11:05 07/08/25 03:53 07/06/25 23:33 Range/Units Whole Blood Glucose 333 #H 70-110 MG/DL Bedside Glucose Comment Notified Nurse Sodium Level 137 136-145 mmol/L Potassium Level 4.0 3.5-5.1 mmol/L Chloride Level 97 L 101-111 mmol/L Carbon Dioxide Level 31 21-32 mmol/L Blood Urea Nitrogen 35 H 7-18 mg/dL Creatinine 4.0 H 0.5-1.0 mg/dL Glomerular Filtration Rate Calc 10 >90 mL/min Random Glucose 156 H 70-105 mg/dL Total Calcium 9.2 8.5-10.1 mg/dL Phosphorus Level 3.9 2.5-4.9 mg/dL Magnesium Level 2.10 1.80-2.40 mg/dL Total Bilirubin 0.4 0.2-1.0 mg/dL Aspartate Amino Transf (AST/SGOT) 20 10-37 U/L Alanine Aminotransferase (ALT/SGPT) 20 12-78 U/L Alkaline Phosphatase 161 H 50-136 U/L Total Protein 6.9 6.0-8.3 g/dL Albumin 3.8 3.5-5.0 g/dL Troponin I High Sensitivity 30 4-50 ng/L B-Type Natriuretic Peptide 180 H 0-100 pg/mL DIAGNOSTICS / RADIOLOGY: [address] [address] IMAGING REPORT Signed PATIENT: HARSHAL YUEN MR#: [id number] : 1935 SEX: F AGE: 89 LOCATION: [facility] ORDER 16 STATUS: [facility] REPORT#: [id number] SERVICE 14 REASON: SOB ORDERING PHYSICIAN: RANGEL RODRIGUEZ MD PROCEDURE: CXR1VW - CHEST 1VW EXAM: CR Chest, 1 view CLINICAL HISTORY: Shortness of breath. COMPARISON: Chest radiograph dated 06/03/2025. FINDINGS: Small pleural effusions with lower zone airspace disease bilaterally. Questionable pleural effusion along the right major and minor fissures. Mild to moderate cardiomegaly and pulmonary vascular congestion. No pneumothorax. Mild COPD. Mild atherosclerotic aorta. The vascular stent graft overlies the axillary to brachial vessels on the right side. No acute osseous abnormality. IMPRESSION: Small pleural effusions with lower zone airspace disease bilaterally. Questionable pleural effusion along the right major and minor fissures. Mild to moderate cardiomegaly and pulmonary vascular congestion. No gross interval changes. /[place] DICTATED BY: CHRISTINA FAIRBANKS Jr., MD DATE: 07/07/25129 ELECTRONICALLY SIGNED BY: CHRISTINA FAIRBANKS Jr., MD DATE: 07/07/25129 ASSESSMENT: Acute hypoxemic respiratory failure, in need of oxygen supplementation COPD with exacerbation, POA Pulmonary vascular congestion, per chest x-ray on 09/05/2025 LVEF 45-50%, stage II diastolic dysfunction, per echo on 05/31/2025 Small pleural effusions with lower zone airspace disease bilaterally, per chest x-ray on 07/06/2025. Group A strep positive, POA Fluid overload, BNP 140, POA Pedal edema, POA Cardiomegaly Electrolyte derangement (hyponatremia, hypochloremia) ESRD on hemodialysis M, W, F Anemia of chronic disease Diabetes mellitus with hyperglycemia Debility and frailty PLAN: Labs and Diagnostics/ Radiology personally reviewed and interpreted by myself and supervising physician We have reviewed dialysis and external records in detail Continue dialysis schedule Saturday, torch burner tomorrow 1.5 L fluid restriction Continue to monitor H&H Epogen on dialysis days, as needed Continue with frequent monitoring of renal function, anemia, and electrolytes Order CBC, BMP, and electrolytes in the morning May use Dilaudid 0.5 mg IV every 6 hours as needed for severe pain Monitor blood pressure adjust medication doses as needed Maintain normotensive state Strict intake, output, and daily weight should be monitored Please renally adjust medications. Avoid nephrotoxics and nonsteroidal drugs. We will continue to monitor the patient closely We have discussed with the other team physicians in detail about the care plan ATTESTATION BY PHYSICIAN I have seen and examined the patient. I reviewed the documentation, medical decision making, and treatment plan as noted by the mid-level provider above. I agree with the findings and plan of care. NINOSKA MANRIQUEZ MD, [facility] FNP Jul 08, 2025 13:01
--- NOTE | 2025-07-08 13:42 | PN ---
[facility] PROGRESS NOTE Date Patient Seen: Jul 08, 2025 Time of Visit: 13:40 Supervising Physician: Dr. Loja Primary Care Physician: Dr. Patrice Ellison Outpatient Specialists: Dr. Francis Loja Inpatient Consults: Regional Account Manager PROBLEM LIST: Acute hypoxemic respiratory failure, in need of oxygen supplementation COPD with exacerbation, POA Pulmonary vascular congestion, per chest x-ray on 09/05/2025 LVEF 45-50%, stage II diastolic dysfunction, per echo on 05/31/2025 Small pleural effusions with lower zone airspace disease bilaterally, per chest x-ray on 07/06/2025. Group A strep positive, POA Fluid overload, BNP 140, POA Pedal edema, POA Cardiomegaly Electrolyte derangement (hyponatremia, hypochloremia) ESRD on hemodialysis M, W, F Anemia of chronic disease Diabetes mellitus with hyperglycemia Debility and frailty Chronic problem list: (COPD, HTN, HDL, DM type 2, ESRD, arthritis, breast cancer in treatment) INTERVAL HISTORY: Patient evaluated sitting in her chair at bedside today, she is currently on 2 L nasal cannula. Patient is comfortable, she denies any acute distress. There was no cough or expectoration. Patient was again endorses that she has home oxygen and home however this oxygen alongside her daughter she uses it intermittently. Patient states that she lives at home with her two daughters and her . She has a assistance at home. She is comfortable being discharged home whenever she is medically cleared. She will continue with dialysis tomorrow after which point she will be considered for discharge. At this time we will continue with the azithromycin and Ancef as well as Solu- Medrol. Plan Continue nebulizer treatments Continue with antibiotics Continue Solu-Medrol 40 mg b.i.d. IV push Follow hemodialysis schedule, nephrology on board Continue supplemental O2 as needed to maintain SpO2 above 95% Patient states she has access to home oxygen REVIEW OF SYSTEMS: 12 point ROS reviewed with patient. Pertinent positives mentioned above. Otherwise negative. PHYSICAL EXAM: GENERAL: Alert, weak, awake oriented x 3 HEENT: EOMI, Sclera non icteric, moist mucosa NECK: Supple, no JVD, trachea midline LUNGS: Clear breath sounds bilaterally. No wheezes HEART: Regular rate and rhythm. Normal S1 and S2, without murmurs ABD: Abdomen soft, nontender. Bowel sounds present EXT: No clubbing cyanosis, + edema NEURO: Alert and oriented X3, follows commands Vital Signs (last 8hr) Date Time Temp Pulse Resp B/P (MAP) Pulse Ox O2 Delivery O2 Flow Rate FiO2 07/08/25 11:05 75 18 N/Cannula Low lpm 2.0 28 07/08/25 11:04 75 18 07/08/25 11:00 98.1 75 20 157/64 100 Nasal Cannula 2.0 07/08/25 08:30 95 Nasal Cannula* 2 28 07/08/25 06:59 75 18 07/08/25 06:58 75 18 N/Cannula Low lpm 2.0 28 LABS: Hematology Labs: Test 07/08/25 03:53 07/06/25 23:33 Range/Units White Blood Count 4.8 4.8-10.8 K/uL Red Blood Count 3.77 L 4.00-5.50 MIL/uL Hemoglobin 11.2 L 12.0-16.0 g/dL Hematocrit 34.7 L 36-48 % Mean Corpuscular Volume 92.0 79-99 fL Mean Corpuscular Hemoglobin 29.7 27.0-33.0 pg Mean Corpuscular Hemoglobin Concent 32.3 32.0-36.0 g/dL Red Cell Distribution Width 19.3 H 11.0-15.5 % Platelet Count 189 130-400 K/uL Mean Platelet Volume 10.1 7.5-10.5 fL Immature Granulocyte % (Auto) 0.4 0-1 % Neutrophils (%) (Auto) 91.2 H 40.0-77.0 % Lymphocytes (%) (Auto) 6.9 L 21.0-51.0 % Monocytes (%) (Auto) 1.3 L 3.0-13.0 % Eosinophils (%) (Auto) 0.0 0.0-8.0 % Basophils (%) (Auto) 0.2 0.0-5.0 % Neutrophils # (Auto) 4.4 1.8-7.7 K/uL Lymphocytes # (Auto) 0.3 L 1.0-4.8 K/uL Monocytes # (Auto) 0.1 0.1-1.0 K/uL Eosinophils # (Auto) 0.00 0.00-0.70 K/uL Basophils # (Auto) 0.01 0.00-0.20 K/uL Absolute Immature Granulocyte (auto 0.02 0-1 K/uL Nucleated Red Blood Cells 0.0 0.0-0.19 % White Cell Morphology Comment See comments Red Blood Cell Morphology See comments Chemistry Labs: Test 07/08/25 11:05 07/08/25 03:53 07/06/25 23:33 Range/Units Whole Blood Glucose 333 #H 70-110 MG/DL Bedside Glucose Comment Notified Nurse Sodium Level 137 136-145 mmol/L Potassium Level 4.0 3.5-5.1 mmol/L Chloride Level 97 L 101-111 mmol/L Carbon Dioxide Level 31 21-32 mmol/L Blood Urea Nitrogen 35 H 7-18 mg/dL Creatinine 4.0 H 0.5-1.0 mg/dL Glomerular Filtration Rate Calc 10 >90 mL/min Random Glucose 156 H 70-105 mg/dL Total Calcium 9.2 8.5-10.1 mg/dL Phosphorus Level 3.9 2.5-4.9 mg/dL Magnesium Level 2.10 1.80-2.40 mg/dL Total Bilirubin 0.4 0.2-1.0 mg/dL Aspartate Amino Transf (AST/SGOT) 20 10-37 U/L Alanine Aminotransferase (ALT/SGPT) 20 12-78 U/L Alkaline Phosphatase 161 H 50-136 U/L Total Protein 6.9 6.0-8.3 g/dL Albumin 3.8 3.5-5.0 g/dL Troponin I High Sensitivity 30 4-50 ng/L B-Type Natriuretic Peptide 180 H 0-100 pg/mL DIAGNOSTICS / RADIOLOGY RESULTS: [ ] PLAN Admit to PCCU with continuous telemetry monitoring. Consult with case management for assistance in obtaining oxygen for the patient. Nephrology consult for hemodialysis. Monitor respirations status closely. Continue oxygen therapy as needed. Titrate oxygen to keep SpO2 equal to greater than 92%. Albuterol and Atrovent nebulizer treatments scheduled q.6 hours. Pulmicort nebulizer treatments Q12 hours. RT to provide IS and education on use. P.r.n. medications for: Cough, shortness of breath, pain management, nausea, vomiting, constipation, hypertension. Continue antibiotic therapy: Cefazolin and start Zithromax IV. Glucometer checks a.c. and HS with insulin regular sliding scale as needed per protocol. Blood pressure checks every 4 hours and as needed. Reconcile home medications once available. Monitor renal and liver function. Monitor electrolytes and treat accordingly. A.m. labs. GI and DVT prophylaxis. Further plan/orders per hospitalization course. NEURO: Minimize central acting medications as possible. Maintain fall precautions, adequate lighting during the day PULMONARY: Supplemental 02 as needed. Maintain aspiration precautions at all times CARDIOVASCULAR: Follow hemodynamics. Vital signs per facility protocol GI & NUTRITION: Continue with nutritional support. Continue stool softeners and laxatives as needed. KIDNEYS & ELECTROLYTES: Strict monitoring of intake, output and overall fluid balance. Avoid nephrotoxic medications to the extent possible. Medications to be dosed according to renal function. Monitor electrolytes and replace as needed ENDOCRINE: Maintain blood glucose between 100-180 at all times. Hypoglycemia protocol in place INFECTIOUS DISEASE: Trend temperature, WBC and procalcitonin level Follow cultures, deescalate antibiotics as soon as possible. Panculture if new onset fever ONCOLOGY/HEMATOLOGY/COAGULATION: Monitor for s/s of bleeding Monitor hemoglobin, coagulation studies as needed SKIN: Pressure ulcer prevention per facility protocol Specialty mattress ORTHO/REHAB: Continue PT/OT Prophylaxis: Continue GI and DVT prophylaxis Code Status: Full Resuscitation Disposition: MITZY HARRISON Jul 08, 2025 13:42
--- NOTE | 2025-07-08 14:06 | NUR ---
CM note Order obtained to setup Home o2, pending 6 minute walk testing.
--- NOTE | 2025-07-08 18:03 | NUR ---
REPORT 1746-REPORT GIVEN TO LEXY ROMANO ON 3RD FLOOR. PENDING PATIENT'S HOME MEDS TO BE ADDRESSED, PENDING VTE PROPHYLAXIS. NOTIFIED TRAN SALOMON. ADDRESSED CONCERNS/QUESTIONS. 1757-TRAN SALOMON CALLED BACK ORDERS RECEIVED. HE IS TO ADDRESS HOME MEDS. 1802-NOTIFIED LEXY ROMANO OF UPDATES. ALL QUESTIONS/CONCERNS ANSWERED.
--- NOTE | 2025-07-08 18:30 | NUR ---
[id number]patient oriented to room , patient is on respiratory isolation droplet.placed on 02 via nasal cannula, rt arm precautions RAVA.family member accompanied patient.
[2025-07-08] MEDS: ENOXAPARIN SODIUM 30 MG/0.3 ML SQ SCH (20:33)
--- NOTE | 2025-07-08 20:35 | NUR ---
MEDS SHIFT ASSESSMENT DONE, PLEASE REFER TO CHART. DUE MEDS ADMINISTERED, TOLERATED WELL. CHANGED PT'S DIAPER AND BARRIER CREAM APPLIED TO COCCYX AREA THEN COVERED WITH ALLEVYN PAD PT REQUESTED HEALED ULCERS ARE STILL PEELING OFF AND IS VERY SENSITIVE. KEPT RESTED AND COMFORTABLE IN BED WITH HOB ELEVATED. CALL LIGHT WITHIN REACH.
--- NOTE | 2025-07-08 21:43 | NUR ---
NAUSEA PT IS HAVING DRY HEAVES BUT NO EMESIS. MEDICATED WITH ZOFRAN IV. PCP IS IN THE MIDDLE OF GIVING PT A BED BATH.
--- NOTE | 2025-07-08 22:11 | NUR ---
GLUCOSE PT REQUESTED A BLOOD SUGAR CHECK SHE CLAIMS SHE FEELS HER BLOOD SUGAR DROPPED. CHECKED BLOOD SUGAR=45. PT IS CONVERSANT AND COHERENT. PROVIDED WITH PM SNACKS. WILL RE-CHECK BLOOD SUGAR.
[2025-07-09] VITALS (27 sets, daily range): BP systolic 84–165; BP diastolic 46–84; PULSE 63–94; RESP 14–22; TEMP 97.6–98.6; O2SAT 88–100
[2025-07-09 05:02] LABS: NUCLEATED RED BLOOD CELLS 0.0 % (0.0-0.19); PLATELET COUNT (AUTO) 201.0 K/uL (130-400); RED BLOOD CELL COUNT(AUTO) 4.03 MIL/uL (4.00-5.50); RED CELL DISTRIBUTION WIDTH 19.9 % (11.0-15.5); WHITE BLOOD COUNT (AUTO) 7.4 K/uL (4.8-10.8)
--- NOTE | 2025-07-09 05:20 | NUR ---
ROUNDS PT SLEPT AT INTERVALS DURING THE SHIFT. NO COMPLAINTS VERBALIZED. NO DISTRESS NOTED. KEPT RESTED AND COMFORTABLE IN BED. CALL LIGHT WITHIN REACH. FOR MORE CARE.
[2025-07-09 05:23] LABS: ASPARTATE AMINOTRANSFERASE 23.0 U/L (10-37); CREATININE 5.2 mg/dL (0.5-1.0); GLOMERULAR FILTR. RATE CALC 7.0 mL/min (>90); GLUCOSE,RANDOM 232.0 mg/dL (70-105); PHOSPHORUS 6.0 mg/dL (2.5-4.9); SODIUM SERUM 134.0 mmol/L (136-145); TOTAL PROTEIN, SERUM 7.1 g/dL (6.0-8.3); UREA NITROGEN, BLOOD 61.0 mg/dL (7-18)
[2025-07-09] MEDS ORDERED: ALBUMIN (HUMAN) 25% 50 ML IV.SOLN. IV ONE (09:30)
[2025-07-09] MEDS ORDERED: AZIT250T9 PO (12:52)
[2025-07-09] MEDS ORDERED: PRED20TA3 PO (12:54)
--- NOTE | 2025-07-09 12:57 | DS ---
[facility] DISCHARGE SUMMARY Date Patient Seen: Jul 09, 2025 Time of Visit: 12:54 Supervising Physician: Dr. Loja Primary Care Physician: Dr. Patrice Ellison Outpatient Specialists: Dr. Francis Loja Inpatient Consults: [employer] HOSPITAL COURSE: HPI (per admitting provider) Ms. Betancourt is a 89-year-old female with a history of a DM type 2, HTN, ESRD on hemodialysis, arthritis, breast cancer in treatment who presented to [facility] ED for evaluation of feeling like she has decreased oxygenation. The patient reported that she has been using her sister's oxygen for two weeks due to shortness of breath. The patient reported having difficulty filling her lungs with the air and may have some small amount of sputum production. She was admitted here about a month ago with the same complaints and found to be in CHF and also have pneumonia. Patient stated her symptoms now are exactly like the once brought her to the hospital a month ago. The patient reported that during dialysis sometimes she feels short of breath and request that she get oxygen. The patient reports that she follows with Dr. Francis Loja, baker chef but has not placed her on oxygen and has not diagnosed her with COPD that she knows of. The patient denied any chest pain, fevers, chills, N/V/D. Vitals on arrival: 130/40, respirations 20 bpm, HR 73bpm, 97% on room air, 98.1 F. Patient is positive for rapid strep. Negative for influenza and COVID. ABGs obtain on room air: PH 7.380, pCO2 42, PO2 56.9, bicarbonate 24.2, O2 sats 89.1, base excess -1. Remarkable lab results: Hemoglobin 11.4, hematocrit 35.9, RBC 3.83, Na 132, chloride 96, BUN 41, creatinine 4.7, GFR 8, glucose 181, BNP 180. Chest x-ray: Small pleural effusions with lower zone airspace disease bilaterally. Questionable pleural effusion along the right major and minor fissures. Mild to moderate cardiomegaly and pulmonary vascular congestion. Mild COPD. No gross interval changes. I assessed the patient at bedside. No family members at bedside She was on 2 L nasal cannula, breathing was even, unlabored, in no distress. I informed her of labs, diagnostics, and plan of care. She verbalizes understanding and is in agreement with the plan. Plan and assessment are listed below. The patient was treated for the following problems: Patient was evaluated on this admission for an episode of shortness of breath and hypoxemia secondary to Chronic obstructive pulmonary disease exacerbation. Patient responded well to her treatment during this admission and remains on 2 L nasal cannula at this time. She was also positive for strep pharyngitis for which azithromycin was started and will be continued upon discharge. Patient r eceived two rounds of hemodialysis as scheduled here at the hospital. Patient advised that she will be receiving two prescriptions upon discharge, one for azithromycin and another from prednisone taper. Patient has access to home oxygen. ACTIVE PROBLEM LIST FOR THE HOSPITALIZATION: Acute hypoxemic respiratory failure, in need of oxygen supplementation COPD with exacerbation, POA Pulmonary vascular congestion, per chest x-ray on 09/05/2025 LVEF 45-50%, stage II diastolic dysfunction, per echo on 05/31/2025 Small pleural effusions with lower zone airspace disease bilaterally, per chest x-ray on 07/06/2025. Group A strep positive, POA Fluid overload, BNP 140, POA Pedal edema, POA Cardiomegaly Electrolyte derangement (hyponatremia, hypochloremia) ESRD on hemodialysis M, W, F Anemia of chronic disease Diabetes mellitus with hyperglycemia Debility and frailty CHRONIC PROBLEMS: continue previous management per PCP unless otherwise indicated (COPD, HTN, HDL, DM type 2, ESRD, arthritis, breast cancer in treatment) [employer]ALL [employer] FINDINGS/RECOMMENDATIONS: [ ] PROCEDURES: as mentioned above DISCHARGE MEDICATIONS: Pt hemodynamically stable and afebrile at time of discharge. PCP notified of patients admission, hospital course and discharge. PHYSICAL EXAM: GENERAL: Alert, weak, awake oriented x 3 HEENT: EOMI, Sclera non icteric, moist mucosa NECK: Supple, no JVD, trachea midline LUNGS: Clear breath sounds bilaterally. No wheezes HEART: Regular rate and rhythm. Normal S1 and S2, without murmurs ABD: Abdomen soft, nontender. Bowel sounds present EXT: No clubbing cyanosis, + edema NEURO: Alert and oriented X3, follows commands FOLLOW-UP: Follow-up with PCP in 2-3 days RECOMMENDATIONS: See Discharge Instructions This case was seen and discussed with my supervising physician. More than 30 minutes spent on discharge process, including evaluation of the patient, discussion with nursing staff, medication reconciliation and follow-up appointments MITZY BARAJAS Jul 09, 2025 12:57
--- NOTE | 2025-07-09 15:30 | NUR ---
prior before dc hm pt spo2 level check via ra after 10 mins.wo o2 therapy spo2 level @ 94% pt appears wo resp distress, sob color wdl's. informed delmy julien agrees to dc hm downstairs to home health care case manager via [facility] family member daughter to assist drive personnal vechile.
--- NOTE | 2025-07-09 21:00 | PN ---
NEPHROLOGY NOTE SUBJECTIVE: The patient has been evaluated and seen for dialysis and seen several times. The patient has been hypotensive. The patient has reported strep throat. The patient also has weakness and anemia. Hypoxemia, COPD exacerbation. The patient has been on antibiotics. The patient is on home oxygen. The patient has underlying type 2 diabetes, hypertension, end-stage renal disease, anemia, breast cancer, and hypotension. PHYSICAL EXAMINATION: GENERAL: Elderly, laying in bed. VITAL SIGNS: Blood pressure has been low intermittently. Pulse is 67. Respiratory rate is 18. Afebrile. HEENT: Head is atraumatic, normocephalic. Pupils are round and reactive. Sclerae are anicteric. Conjunctivae not pale. Oral mucosa is not dry. CHEST: Shows equal thoracic percussion note being resonant in all areas. CARDIAC: Regular rhythm. No rub. No S3, S4. No parasternal heave. BACK: No tenderness, no back deformity. LABORATORY DATA: Labs have been reviewed and old records revealed. PROBLEMS: * Renal failure. * Anemia. * Multiple other comorbidities. PLAN: Continue dialysis support, continue monitoring of renal function and blood pressure, IV albumin as needed, and midodrine as needed. We will follow up closely. The patient was seen for dialysis and seen multiple times. TID: [id number] RECEIPT: [id number]
--- NOTE | 2025-07-09 21:08 | PN ---
NEPHROLOGY NOTE SUBJECTIVE: The patient has been evaluated and seen for dialysis and seen several times. The patient is generally weak. The patient denies any fevers, chills or rigors. No cough, expectoration or hemoptysis. No other aggravating or relieving factors. No other associated symptoms. PHYSICAL EXAMINATION: GENERAL: Pale, no other distress. VITAL SIGNS: Blood pressure has been fluctuating. Pulse of 88, respiratory rate is 18, afebrile. HEENT: Her head is atraumatic, normocephalic. Pupils are round and reactive. Sclerae are anicteric. NECK: Supple. No masses or bruits. Thyroid is palpable. CHEST: Shows equal thoracic percussion note being resonant in all areas. CARDIAC: Regular rhythm. No rub. No S3, no S4. No parasternal heave. ABDOMEN: No guarding or tenderness. Bowel sounds present. No free fluid. LABORATORY DATA: Labs have been reviewed. PROBLEMS: The patient is intermittently hypotensive. The patient has no fevers, chills or rigors. The patient has no other associated symptoms. The patient was seen for dialysis. The patient was seen several times. PLAN: We will be monitoring closely. Condition remain. Epogen as needed. Thank you for this patient. The patient was seen and seen several times today. TID: [id number] RECEIPT: [id number]
== END 2025-07-09 16:10 | disposition home or self-care (01) | DRG 189 ==
LOC: EDH 22:51 → EDHIP 07-07 00:55 → OBSVTOIN 07-07 00:55 → 2CH 07-07 08:23 → 2DH 07-07 22:21 → 3DH 07-08 18:28
PROVIDERS: ADMIT Internal Medicine Critical Care Medicine; ATTEND Internal Medicine Critical Care Medicine
PROC: 5A1D70Z Performance of Urinary Filtration, Intermittent, Less than 6 Hours Per Day (ICD-10-PCS; principal; 2025-07-07)
PROC: 5A1D70Z Performance of Urinary Filtration, Intermittent, Less than 6 Hours Per Day (ICD-10-PCS; 2025-07-09)
DX: J96.01 Acute respiratory failure with hypoxia (principal); N18.6 End stage renal disease; I13.2 Hypertensive heart and chronic kidney disease with heart failure and with stage 5 chronic kidney disease, or end stage renal disease; E87.1 Hypo-osmolality and hyponatremia; J44.1 Chronic obstructive pulmonary disease with (acute) exacerbation; D63.8 Anemia in other chronic diseases classified elsewhere; E11.22 Type 2 diabetes mellitus with diabetic chronic kidney disease; E11.65 Type 2 diabetes mellitus with hyperglycemia; E87.70 Fluid overload, unspecified; I50.9 Heart failure, unspecified; K59.00 Constipation, unspecified; E87.8 Other disorders of electrolyte and fluid balance, not elsewhere classified; J02.0 Streptococcal pharyngitis; J44.9 Chronic obstructive pulmonary disease, unspecified; R54 Age-related physical debility; Z99.2 Dependence on renal dialysis; Z90.710 Acquired absence of both cervix and uterus; Z85.3 Personal history of malignant neoplasm of breast
CPT/HCPCS: 36415; 36600; 71045; 80048; 80053; 82803; 82948; 83735; 83880; 84100; 84484; 85025; 85027; 87426; 87804; 87880; 90935; 93005; 94640; 94664; 94760; 99285; G0378; J0456; J0690; J1650; J1815; J2405; J2919